=== PATIENT | male | born 1935 | race Caucasian/White ===

== ENCOUNTER 2018-12-12 05:13 | Observation (INO) | payer MEDICARE ==
[2018-12-12] MEDS ORDERED: methylPREDNISolone Sod Succ/PF 125 MG/2 ML VIAL ONE (05:19)
[2018-12-12 05:44] LABS: #Basophils 0.1 thou/uL (0.0-0.2); #Eosinphils 0.2 thou/uL (0.0-0.7); #Lymphocytes 1.5 thou/uL (1.20-3.40); #Monocytes 0.5 thou/uL (0.11-0.59); #Neutrophils 4.5 thou/uL (1.40-6.50); %Basophils 1.5 % (0.0-1.0); %Eosinophils 2.9 % (0.0-10.0); %Lymphocytes 22.2 % (21.0-51.0); %Monocytes 6.7 % (0.0-10.0); %Neutrophils 66.7 % (42.0-75.0); Mean Corpuscular HGB CONC 30.4 g/dL (32.0-36.0); Mean Corpuscular Hemoglobin 24.8 pg (27.0-31.0); Mean Corpuscular Volume 81.7 fL (78.0-98.0); Mean Platelet Volume 9.2 fL (7.4-10.4); Platelet Count 179 thou/uL (130-400); Red Blood Cell (RBC) Count 3.24 mill/uL (4.70-6.10); White Blood Cell (WBC) Count 6.8 thou/uL (4.8-10.8)
[2018-12-12 06:03] LABS: ALT (SGPT) 25 U/L (8-55); AST (SGOT) 23 U/L (5-34); Albumin 3.5 g/dL (3.4-4.8); Alkaline Phosphatase 67 U/L (40-150); Anion Gap 11 mmol/L (10-20); BUN (Urea Nitrogen) 28 mg/dL (8.4-25.7); Bilirubin, Total 0.4 mg/dL (0.2-1.2); CK (CPK) 32 U/L (30-200); Calc. Creatinine Clearance 0 mL/min (70-130); Calcium 8.6 mg/dL (7.8-10.44); Carbon Dioxide 23 mmol/L (23-31); Chloride 107 mmol/L (98-107); Estimated GFR-MDRD 36; Globulin 2.6 g/dL (2.4-3.5); Glucose 113 mg/dL (83-110); Potassium 4.2 mmol/L (3.5-5.1); Protein, Total 6.1 g/dL (5.8-8.1); Sodium 137 mmol/L (136-145)
[2018-12-12] MEDS ORDERED: Aspirin 325 MG TAB ONE (06:47)
[2018-12-12] MEDS ORDERED: Furosemide 40 MG/4 ML VIAL ONE (06:47)
[2018-12-12] MEDS ORDERED: Acetaminophen 500 MG TAB ONE (07:29)
[2018-12-12] MEDS ORDERED: Morphine 4 MG/ML VIAL ONE (07:51)
[2018-12-12] MEDS ORDERED: Ondansetron PF 4 MG/2 ML Vial ONE (07:52)
--- NOTE | 2018-12-12 08:17 | RAD ---
PORTABLE CHEST: HISTORY: Chest pain. COMPARISON: There are no recent comparison studies. Previous chest film dates to 2009. FINDINGS: There is patchy atelectasis or infiltrate in the left lung base with the suggestion of a small left e ffusion blunting the left CP angle. There is linear atelectasis in the right lower lung. The upper lung [place] appear clear. Vascular markings are upper normal. Heart size is upper normal. There ar e postop sternotomy changes. IMPRESSION: 1. Atelectasis and/or infiltrate in the left lung base and question small left effusion. 2. Linear atelectasis in the right lower lung. POS: [facility]
[2018-12-12 09:49] LABS: Troponin I 0.012 ng/mL (< 0.028)
[2018-12-12] MEDS ORDERED: Acetaminophen 325 MG TAB PO PRN (10:22)
[2018-12-12] MEDS ORDERED: Senokot S 8.6-50 MG TAB PO PRN (10:22)
[2018-12-12 12:46] LABS: Troponin I Less than 0.010 ng/mL (< 0.028)
--- NOTE | 2018-12-12 13:36 | HP ---
PRIMARY CARE PHYSICIAN: Dr. Tavares. HIGHWAY ADMINISTRATIVE ENGINEER: Dr. Field. CHIEF COMPLAINT: Chest pain. HISTORY OF PRESENT ILLNESS: Mr. Clarke is an 83-year-old male, who reported to the emergency room early this morning, complains of shortness of breath and chest pain, onset 30 minutes prior to arrival. He reports that he has COPD, took his normal inhalers without any relief. At that point, he said his chest started to hurt. He wears a nitroglycerin patch every day, had a bypass surgery vessel 40 years ago and had stent placement 2 years ago. He reports that Dr. Field saw him about 3 weeks ago, did a stress test, which he reported was normal. EKG in the emergency room showed a normal sinus rhythm, beats per minute 50, complete right bundle-branch block, left anterior fascicular block, bifascicular block, T-waves are normal, axis is normal, has a wide QRS. Chest x-ray shows atelectasis, infiltrate in the left lung base, questionable small left effusion, two linear atelectasis in the right lower lung. Lab values; creatinine is 1.79, BUN is 28, estimated GFR is 36. We do not have a baseline creatinine to compare this to, and BNP is 1260.9. Again, do not have any previous labs to compare this to. Troponin x2 undetectable. The patient admitted to the observation unit for further management. PAST MEDICAL HISTORY: Pertinent for coronary artery disease, hyperlipidemia, hypertension, COPD. PAST SURGICAL HISTORY: CABG vessels 40 years ago, had a portion of his stomach removed due to ulcers and has had a hemorrhoidectomy. PSYCHIATRIC HISTORY: None. SOCIAL HISTORY: Denies alcohol or drug use. The patient smoked for 50 years and quit 2 years ago. FAMILY HISTORY: There is some coronary artery disease in his family. ALLERGIES: NONE. CURRENT MEDICATIONS: Per the ER, still needs to be rectified, reconciled on the inpatient unit once he arrives. Metoprolol 50 mg p.o. once a day, tramadol 50 mg q.6 hours as needed for pain, Xarelto 10 mg once a day, Atorvastatin 10 mg p.o. once a day, Flomax 0.4 mg p.o. once a day, and Prilosec 20 mg p.o. once a day. REVIEW OF SYSTEMS: The patient reports chest pain, cough, shortness of breath. Denies fever or chills. PHYSICAL EXAMINATION: VITAL SIGNS: Blood pressure 163/68, pulse is 51, respirations are 16, temperature 98.0, pulse ox is 96% on room air. GENERAL: The patient is alert and oriented to person, place, and time, is in no distress. HEENT: Head is atraumatic and normocephalic. Eyes, pupils are equally round and reactive to light. Extraocular muscles are intact. ENT, mouth exam is normal. Mucous membranes are moist. NECK: Normal range of motion. Trachea is midline. RESPIRATORY/CHEST: Coarse breath sounds, diffusely diminished air movement. There is no sign of any respiratory distress. CARDIOVASCULAR: Regular heart rate and rhythm. Heart sounds are normal. ABDOMEN: Soft, nontender. Bowel sounds are heard. BACK: Normal range of motion. No CVA tenderness. EXTREMITIES: Upper extremities, normal strength, normal range of motion. Radial pulses equal bilaterally. Lower extremities, normal range of motion. Motor strength is normal. Pedal pulses equal bilaterally. There is pitting edema noted to bilateral extremities. NEUROLOGIC: The patient is oriented to person, place, and time. Speech is normal. No focal motor or sensory deficits are noted. SKIN: Warm, dry, normal in color. ASSESSMENT AND PLAN: 1. The patient has had a recent stress test within the last 3 weeks. We will ask for records from Dr. Field's office to help us risk stratify. The patient reports he has not had an echocardiogram within the last year, we will get this done. We will trend troponins. Aspirin. 2. History of chronic obstructive pulmonary disease. We will order nebs q.6 hours as scheduled. 3. Hypertension. We will restart home medications. We will trend. 4. Coronary artery disease. We will continue home medications. 5. Deep venous thrombosis and gastrointestinal prophylaxis have been started. Job ID: [id number]
[2018-12-12] MEDS ORDERED: HYDROcodone/Acetaminophen 5/325 mg Tablet PO PRN (13:53)
[2018-12-12 15:00] VITALS: BMI 28.6
[2018-12-12] MEDS: Heparin 5,000 UNITS/ML VIAL SC SCH ×2 (15:26→21:12)
[2018-12-12] MEDS: HYDROcodone/Acetaminophen 5/325 mg Tablet PO PRN ×2 (15:26→21:07)
[2018-12-12] MEDS ORDERED: traMADol HCl 50 MG TAB PO PRN (15:33)
[2018-12-12] MEDS ORDERED: hydrALAZINE 20 MG/ML VIAL SLOW IVP PRN (16:35)
[2018-12-12] MEDS: PROVENTIL INHALER 6.7 G (200 INHALATIONS) INH SCH (17:51)
[2018-12-12] MEDS: Famotidine 20 MG TAB PO SCH (21:06)
[2018-12-12] MEDS: Amiodarone 200 MG TAB PO SCH (21:06)
[2018-12-12] MEDS: Metoprolol Tartrate 100 MG TAB PO SCH (21:07)
[2018-12-13] MEDS: HYDROcodone/Acetaminophen 5/325 mg Tablet PO PRN (02:15)
[2018-12-13] MEDS: Nitroglycerin 0.4mg/Hour PATCH TD SCH (05:28)
[2018-12-13 05:51] LABS: #Lymphocytes 0.7 thou/uL (1.20-3.40); #Monocytes 0.4 thou/uL (0.11-0.59); #Neutrophils 6.7 thou/uL (1.40-6.50); %Lymphocytes 9.3 % (21.0-51.0); %Monocytes 5.2 % (0.0-10.0); %Neutrophils 85.4 % (42.0-75.0); Hemoglobin 8.7 g/dL (14.0-18.0); Mean Corpuscular HGB CONC 31.1 g/dL (32.0-36.0); Mean Corpuscular Hemoglobin 25.5 pg (27.0-31.0); Mean Corpuscular Volume 82.1 fL (78.0-98.0); Mean Platelet Volume 9.4 fL (7.4-10.4); Platelet Count 169 thou/uL (130-400); RBC Distribution Width 15.7 % (11.5-14.5); White Blood Cell (WBC) Count 7.9 thou/uL (4.8-10.8)
[2018-12-13 06:12] LABS: ALT (SGPT) 23 U/L (8-55); AST (SGOT) 22 U/L (5-34); Albumin 3.6 g/dL (3.4-4.8); Alkaline Phosphatase 72 U/L (40-150); Anion Gap 12 mmol/L (10-20); BUN (Urea Nitrogen) 36 mg/dL (8.4-25.7); Bilirubin, Total 0.4 mg/dL (0.2-1.2); Calc. Creatinine Clearance 44 mL/min (70-130); Calcium 8.8 mg/dL (7.8-10.44); Carbon Dioxide 25 mmol/L (23-31); Chloride 104 mmol/L (98-107); Estimated GFR-MDRD 44; Globulin 2.7 g/dL (2.4-3.5); Glucose 140 mg/dL (83-110); Potassium 4.5 mmol/L (3.5-5.1); Protein, Total 6.3 g/dL (5.8-8.1); Sodium 136 mmol/L (136-145)
[2018-12-13] MEDS: PROVENTIL INHALER 6.7 G (200 INHALATIONS) INH SCH ×2 (07:15→19:06)
[2018-12-13] MEDS: Amiodarone 200 MG TAB PO SCH ×2 (08:16→22:32)
[2018-12-13] MEDS: Atorvastatin Calcium 20 MG TAB PO SCH (08:16)
[2018-12-13] MEDS: Losartan 25 MG TAB PO SCH (08:17)
[2018-12-13] MEDS: Tamsulosin HCl 0.4 MG CAP PO SCH (08:17)
[2018-12-13] MEDS: Metoprolol Tartrate 100 MG TAB PO SCH ×2 (08:17→22:32)
[2018-12-13] MEDS: Famotidine 20 MG TAB PO SCH ×2 (08:17→22:33)
[2018-12-13] MEDS: Heparin 5,000 UNITS/ML VIAL SC SCH ×3 (08:18→22:33)
[2018-12-13] MEDS: Allopurinol 100 MG TAB PO SCH (08:18)
--- NOTE | 2018-12-13 08:30 | RAD ---
CHEST ONE VIEW: Comparison: 12-12-18 History: Shortness of breath. Follow up changes in the lung bases. FINDINGS: Stable sternotomy wires, vascular rings and atherosclerosis of the aorta. Heart size is within normal limits. Pulmonary vessels and hilum are normal. Blunting of the left costophrenic angle, unchanged. Linear opacity in the left lung base may represent subsegmental atelectasis or scar. Chronic changes in the remainder of the lung parenchyma. No pneumothorax or osseous abnormalities. IMPRESSION: Presumed chronic changes in the left lung base. Superimposed subsegmental atelectasis cannot be exclu ded. POS: [facility]
--- NOTE | 2018-12-13 08:47 | ULT ---
RIGHT UPPER QUADRANT ULTRASOUND: INDICATION: Abdominal pain. COMPARISON: None. FINDINGS: Bowel gas slightly limited evaluation of the upper abdomen. The pancreas is largely obscured. There is a 1 cm cyst seen within the right hepatic lobe. No additional focal hepatic lesion is evide nt. There is a small echogenic focus seen within the region of the gallbladder neck suspicious for a smal l stone. There is report of a sonographic Hernandez's sign. The gallbladder wall is mildly thickened m easuring 3.6 mm; however, the gallbladder is not fully distended. The common bile duct measures 4.4 mm. The right kidney measures 9.5 cm. There is a 1.5 cm cyst seen within the left mid kidney. An a dditional 1.5 cm cyst was seen within the right mid kidney. No hydronephrosis is evident. IMPRESSION: 1. Small suspected nonmobile gallstone within the gallbladder neck with gallbladder wall thickening and reported sonographic Hernandez's sign is suspicious for acute calculus cholecystitis. Recommend cor relation with the clinical examination. A HIDA scan may be helpful for further evaluation. 2. Right hepatic lobe and right renal cyst. 3. Some limitation of the examination due to overlying bowel gas. POS: [facility]
[2018-12-13] MEDS ORDERED: Lorazepam 2 MG/ML VIAL SLOW IVP SCH (11:15)
--- NOTE | 2018-12-13 12:05 | PDOC.HOSPP ---
- Subjective Encounter Date: 12/13/18 Encounter Time: 09:15 Subjective: Patient examined, denied new complaints. - Objective Vital Signs & Weight: Vital Signs (12 hours) Temp Pulse Resp BP BP Pulse Ox 12/13/18 07:53 97.5 F L 54 L 12 139/65 94 L 12/13/18 07:13 59 L 16 94 L 12/13/18 05:24 57 L 162/72 H 98 12/13/18 02:57 97.6 F 58 L 17 145/67 H 95 12/13/18 02:20 58 L 189/74 H 12/13/18 00:31 62 160/73 H Weight Weight 83.007 kg I&O: 12/12/18 12/13/18 12/14/18 06:59 06:59 06:59 Intake Total 600 Balance 600 Result Diagrams: 12/13/18 05:35 12/13/18 05:35 ROS - Review of Systems Respiratory: reports: pleuritic pain Cardiovascular: reports: chest pain, edema - Medication Medications: Active Medications Generic Name Dose Route Start Last Admin Trade Name Freq PRN Reason Stop Dose Admin Hydrocodone Bitart/Acetaminophen 2 tab 12/12/18 13:53 12/13/18 02:15 [place] 5/325 PO 2 tab Q4H PRN Administration Severe Pain (7-10) Albuterol Sulfate 1 puff 12/12/18 21:00 12/13/18 07:15 Proventil Hfa INH Not Given BID LOLA Albuterol/Ipratropium 3 ml 12/12/18 19:00 12/13/18 07:13 Duoneb NEB 3 ml [id number] LOLA Administration Allopurinol 100 mg 12/13/18 09:00 12/13/18 08:18 Zyloprim PO Not Given DAILY LOLA Amiodarone HCl 200 mg 12/12/18 21:00 12/13/18 08:16 Cordarone PO 200 mg BID LOLA Administration Atorvastatin Calcium 20 mg 12/13/18 09:00 12/13/18 08:16 Lipitor PO 20 mg DAILY LOLA Administration Famotidine 20 mg 12/12/18 21:00 12/13/18 08:17 Pepcid PO 20 mg BID LOLA Administration Heparin Sodium (Porcine) 5,000 units 12/12/18 15:00 12/13/18 08:18 Heparin SC Not Given TID LOLA Hydralazine HCl 10 mg 12/12/18 16:35 12/13/18 02:20 Apresoline SLOW IVP 10 mg Q4H PRN Administration SBP > 180 and HR < 70 Lorazepam 1 mg 12/13/18 11:15 12/13/18 11:24 Ativan SLOW IVP 12/13/18 13:00 1 mg NOW LOLA Administration Losartan Potassium 25 mg 12/13/18 09:00 12/13/18 08:17 Cozaar PO 25 mg DAILY LOLA Administration Metoprolol Tartrate 100 mg 12/12/18 21:00 12/13/18 08:17 Lopressor PO 100 mg BID LOLA Administration Nitroglycerin 0.4 patch 12/13/18 09:00 12/13/18 05:28 Nitro-Dur 0.4mg/Hr Patch TD 0.4 patch DAILY LOLA Administration Pantoprazole Sodium 40 mg 12/13/18 09:00 12/13/18 08:17 Protonix PO 40 mg DAILY LOLA Administration Sodium Chloride 10 ml 12/12/18 10:22 12/13/18 11:24 Flush - Normal Saline IVF 10 ml PRN PRN Administration Saline Flush Tamsulosin HCl 0.4 mg 12/13/18 09:00 12/13/18 08:17 Flomax PO 0.4 mg DAILY LOLA Administration - Exam Eye: PERRL ENT: moist mucosa Neck: supple Heart: RRR Respiratory: CTAB Gastrointestinal: soft Gastrointestinal - other findings: mild pain TP RUQ Extremities: 2+ LE edema Skin: normal turgor Neurological: CN's grossly intact Musculoskeletal: normal tone Psychiatric: normal affect, A&O x 3 Hosp A/P (1) Creatinine elevation Code(s): R79.89 - OTHER SPECIFIED ABNORMAL FINDINGS OF BLOOD CHEMISTRY Status : Acute (2) Kidney disease Code(s): N28.9 - DISORDER OF KIDNEY AND URETER, UNSPECIFIED Status: Acute (3) Edema Code(s): R60.9 - EDEMA, UNSPECIFIED Status: Acute (4) Chest pain Code(s): R07.9 - CHEST PAIN, UNSPECIFIED Status: Acute (5) Shortness of breath Code(s): R06.02 - SHORTNESS OF BREATH Status: Acute (6) COPD (chronic obstructive pulmonary disease) Status: Chronic (7) CAD (coronary artery disease) Code(s): I25.10 - ATHSCL HEART DISEASE OF [place] CORONARY ARTERY W/O ANG PCTRS Status: Chronic - Plan old records reviewed/req Patient with abnormal RUQ U/S with positive Hernandez's sign Radiology recommended HIDA scan which is ordered Creatinine improved today Nebs and lasix ordered Awaiting Echo and records from Dr. Field's office Recheck labs in AM Will discuss with Dr. Rodgers for further recommendations
[2018-12-13] MEDS ORDERED: Furosemide 40 MG/4 ML VIAL SLOW IVP SCH (12:30)
--- NOTE | 2018-12-13 14:35 | NM ---
Exam: Negative medicine HIDA scan HISTORY: Right upper quadrant pain. Positive Hernandez's sign. TECHNIQUE: Patient was administered 5.1 degrees of technetium 99m mebrofenin intravenously. Ejection fraction was determined the patient was given the relative short orally FINDINGS: Appropriate uptake of the radiotracer by the hepatic parenchyma. Localization radiotracer into the in trahepatic biliary system. Passage of radiotracer from the common bile duct into small bowel loops. Localization of the radiotracer in the gallbladder as early as 6 minutes. Gallbladder ejection fraction: 77% IMPRESSION: 1. No scintigraphic evidence of acute cholecystitis. 2. 77% ejection fraction
[2018-12-14 04:46] LABS: #Lymphocytes 1.3 thou/uL (1.20-3.40); #Monocytes 0.6 thou/uL (0.11-0.59); #Neutrophils 6.7 thou/uL (1.40-6.50); %Basophils 0.2 % (0.0-1.0); %Eosinophils 0.6 % (0.0-10.0); %Monocytes 6.7 % (0.0-10.0); %Neutrophils 77.5 % (42.0-75.0); Hemoglobin 8.4 g/dL (14.0-18.0); Mean Corpuscular HGB CONC 31.1 g/dL (32.0-36.0); Mean Corpuscular Hemoglobin 25.6 pg (27.0-31.0); Mean Corpuscular Volume 82.2 fL (78.0-98.0); Mean Platelet Volume 9.1 fL (7.4-10.4); Platelet Count 180 thou/uL (130-400); Red Blood Cell (RBC) Count 3.28 mill/uL (4.70-6.10); White Blood Cell (WBC) Count 8.7 thou/uL (4.8-10.8)
[2018-12-14 05:07] LABS: ALT (SGPT) 22 U/L (8-55); AST (SGOT) 22 U/L (5-34); Albumin 3.5 g/dL (3.4-4.8); Alkaline Phosphatase 64 U/L (40-150); Anion Gap 12 mmol/L (10-20); BUN (Urea Nitrogen) 45 mg/dL (8.4-25.7); Bilirubin, Total 0.4 mg/dL (0.2-1.2); Calc. Creatinine Clearance 42 mL/min (70-130); Calcium 8.7 mg/dL (7.8-10.44); Carbon Dioxide 27 mmol/L (23-31); Chloride 102 mmol/L (98-107); Estimated GFR-MDRD 43; Globulin 2.5 g/dL (2.4-3.5); Glucose 102 mg/dL (83-110); Potassium 4.1 mmol/L (3.5-5.1); Sodium 137 mmol/L (136-145)
[2018-12-14] MEDS: PROVENTIL INHALER 6.7 G (200 INHALATIONS) INH SCH (07:24)
[2018-12-14] MEDS: Heparin 5,000 UNITS/ML VIAL SC SCH (08:14)
[2018-12-14] MEDS: Nitroglycerin 0.4mg/Hour PATCH TD SCH (08:15)
[2018-12-14] MEDS: Allopurinol 100 MG TAB PO SCH (08:16)
[2018-12-14] MEDS: Amiodarone 200 MG TAB PO SCH (08:16)
[2018-12-14] MEDS: Atorvastatin Calcium 20 MG TAB PO SCH (08:16)
[2018-12-14] MEDS: Metoprolol Tartrate 100 MG TAB PO SCH (08:17)
[2018-12-14] MEDS: Tamsulosin HCl 0.4 MG CAP PO SCH (08:17)
[2018-12-14] MEDS: Losartan 25 MG TAB PO SCH (08:17)
[2018-12-14] MEDS: Famotidine 20 MG TAB PO SCH (08:17)
[2018-12-14] MEDS ORDERED: Furosemide 40 MG/4 ML VIAL SLOW IVP SCH (09:00)
[2018-12-14 11:45] VITALS: BP 128/54; TEMP 97.9
--- NOTE | 2018-12-18 22:38 | EKG ---
Test Reason : STAT Blood Pressure : / mmHG Vent. Rate : 056 BPM Atrial Rate : 056 BPM P-R Int : 000 ms QRS Dur : 142 ms QT Int : 498 ms P-R-T Axes : 000 -58 -16 degrees QTc Int : 480 ms Sinus bradycardia with 1st degree A-V block Right bundle branch block Left anterior fascicular block Bifascicular block Abnormal ECG When compared with ECG of 12-DEC-2018 05:24, (Unconfirmed) Sinus rhythm has replaced Wide QRS rhythm Confirmed by Lizy DE LA ROSA ([id number]) on 12/18/2018 10:37:56 PM Referred By: MODESTA Confirmed By:Lizy DE LA ROSA
== END 2018-12-14 12:48 | disposition home or self-care (01) ==
LOC: ERS 05:13 → ERHOLD 10:22 → 2SW 12-14 11:52
PROVIDERS: ADMIT Internal Medicine; ATTEND Internal Medicine
DX: R07.9 Chest pain, unspecified (principal); R06.02 Shortness of breath; J44.9 Chronic obstructive pulmonary disease, unspecified; J98.11 Atelectasis; I10 Essential (primary) hypertension; E78.5 Hyperlipidemia, unspecified; I45.2 Bifascicular block; I25.10 Atherosclerotic heart disease of native coronary artery without angina pectoris; N28.1 Cyst of kidney, acquired; K76.89 Other specified diseases of liver; Z79.01 Long term (current) use of anticoagulants; Z79.899 Other long term (current) drug therapy; Z87.891 Personal history of nicotine dependence; Z95.1 Presence of aortocoronary bypass graft
CPT/HCPCS: 71045 ×2; 76705; 78227; 80053 ×3; 82550; 83690; 83880; 84484 ×2; 85025 ×3; 93005 ×2; 93306; 94640 ×4; 96374; 96375 ×2; 96376 ×2; 97116; 97139; 99285; A9537; G0378 ×4; 36415; 93010; J0360; J1644; J1940; J2060; J2270; J2405; J2930; J7620

== ENCOUNTER 2019-03-19 17:37 | Inpatient (IN) | payer MEDICARE ==
[2019-03-19] MEDS ORDERED: Adacel (T-DAP) 0.5 ML SYRINGE ONE (18:52)
[2019-03-19] MEDS ORDERED: Morphine 4 MG/ML VIAL ONE (18:52)
[2019-03-19] MEDS ORDERED: Ondansetron PF 4 MG/2 ML Vial ONE (19:00)
--- NOTE | 2019-03-19 19:53 | RAD ---
Radiograph right leg tibia-fibula 2 views: DATE: 03/19/2019 7:11 PM HISTORY: 83-year-old male status post acute traumatic injury to the leg. COMPARISON: None FINDINGS: Comminuted mildly displaced fracture of proximal fibular diaphysis with butterfly fragment. Spiral fracture at junction between middle and distal thirds of the tibial diaphysis, with three four th shaft width lateral displacement and one third shaft width posterior displacement, of distal fragment, and minimal posterior angulation of distal fragment. ORIF plate and screws from distal fibular diaphysis to tip of lateral malleolus. Multiple surgical cl ips at medial calf. IMPRESSION: 1. Acute, traumatic, displaced spiral fracture of the distal tibial shaft. 2. Acute, traumatic, mildly displaced, comminuted fracture of proximal fibular shaft. 3. Old open reduction internal fixation of lateral malleolus nonacute fracture.
--- NOTE | 2019-03-19 19:53 | RAD ---
EXAM: Chest one view: HISTORY: Injury from a fall COMPARISON: 12/13/2018 FINDINGS: Postop midline sternotomy. Stable chronic appearing changes. Heart size: Within normal limits. Lungs: Clear of acute process. No evidence for confluent pneumonia, pleural effusion, acute edema, or pneumothorax, or other signifi cant acute process. IMPRESSION: No significant acute intrathoracic disease. Atherosclerosis of the aorta. Stable exam.
--- NOTE | 2019-03-19 19:55 | RAD ---
Radiograph right knee 2 views: DATE: 03/19/2019 HISTORY: 83-year-old male with traumatic knee pain due to fall FINDINGS: Comminuted and mildly displaced fibular shaft fracture. No fracture identified involving tibial plate au or distal femur. Very small joint effusion. No dislocation. IMPRESSION: 1. Acute, traumatic, mildly displaced comminuted fibular shaft fracture. 2. No dislocation, and no fracture of the knee joint identified, in this limited [id number] study. .
[2019-03-19 19:56] LABS: #Eosinphils 0.2 thou/uL (0.0-0.7); #Lymphocytes 1.8 thou/uL (1.20-3.40); #Monocytes 0.9 thou/uL (0.11-0.59); #Neutrophils 8.9 thou/uL (1.40-6.50); %Basophils 0.3 % (0.0-1.0); %Eosinophils 1.3 % (0.0-10.0); %Lymphocytes 15.2 % (21.0-51.0); %Monocytes 7.7 % (0.0-10.0); %Neutrophils 75.5 % (42.0-75.0); Hemoglobin 9.9 g/dL (14.0-18.0); Mean Corpuscular HGB CONC 30.8 g/dL (32.0-36.0); Mean Corpuscular Hemoglobin 24.3 pg (27.0-31.0); Mean Corpuscular Volume 78.8 fL (78.0-98.0); Mean Platelet Volume 8.3 fL (7.4-10.4); Platelet Count 232 thou/uL (130-400); RBC Distribution Width 17.6 % (11.5-14.5); Red Blood Cell (RBC) Count 4.08 mill/uL (4.70-6.10); White Blood Cell (WBC) Count 11.8 thou/uL (4.8-10.8)
[2019-03-19 20:02] LABS: Prothrombin Time 13.6 SEC (12.0-14.7)
[2019-03-19] MEDS ORDERED: Fentanyl 100 MCG/2 ML VIAL ONE ×2 (20:11→21:49)
[2019-03-19 20:26] LABS: ALT (SGPT) 69 U/L (8-55); AST (SGOT) 56 U/L (5-34); Albumin 3.6 g/dL (3.4-4.8); Alkaline Phosphatase 92 U/L (40-110); Anion Gap 12 mmol/L (10-20); BUN (Urea Nitrogen) 42 mg/dL (8.4-25.7); Bilirubin, Total 0.4 mg/dL (0.2-1.2); Calc. Creatinine Clearance 0 mL/min (70-130); Calcium 8.9 mg/dL (7.8-10.44); Carbon Dioxide 25 mmol/L (23-31); Chloride 105 mmol/L (98-107); Estimated GFR-MDRD 33; Globulin 3.1 g/dL (2.4-3.5); Glucose 134 mg/dL (83-110); Potassium 4.4 mmol/L (3.5-5.1); Protein, Total 6.7 g/dL (5.8-8.1); Sodium 138 mmol/L (136-145)
--- NOTE | 2019-03-19 20:43 | CT ---
CT BRAIN NONCONTRAST: DATE: 03/19/2019 HISTORY: 83-year-old male status post acute head trauma from fall FINDINGS: There is no evidence of acute intra-axial or extra-axial hemorrhage. There is no midline shift or any other mass effect. There is no extra-axial fluid collection. There is no evidence of obstructive hydrocephalus. Calvarium is intact. There is diffuse brain parenchymal volume loss. There are low att enuation areas in the white matter. These are nonspecific, but in a patient of this age, they are probably chronic ischemic white matter changes due to microvascular atherosclerosis. IMPRESSION: 1) No acute intracranial findings. 2) involutional changes and chronic ischemic white matter changes.
--- NOTE | 2019-03-19 20:47 | CT ---
CT CERVICAL SPINE NONCONTRAST: DATE: 03/19/2019 HISTORY: 83-year-old male status post acute cervical trauma from fall. FINDINGS: There are no jumped or perched facets. There is no evidence of acute fracture. The vertebral body hei ghts are maintained. There is no prevertebral soft tissue swelling. IMPRESSION: No evidence of acute fracture or acute traumatic subluxation.
[2019-03-19] MEDS ORDERED: Ondansetron ODT 4 MG TAB PO PRN (21:37)
[2019-03-19] MEDS ORDERED: Dextrose 5% in Water 1,000 ML IV PRN (21:37)
[2019-03-19] MEDS ORDERED: hydrALAZINE 20 MG/ML VIAL SLOW IVP PRN (21:37)
[2019-03-19] MEDS ORDERED: Dextrose 50% Abboject 50 ML SYRINGE SLOW IVP PRN (21:37)
[2019-03-19] MEDS ORDERED: traMADol HCl 50 MG TAB PO PRN (21:42)
[2019-03-19] MEDS ORDERED: Nitroglycerin 2% Ointment 1 INCH/1 GM Packet ONE (21:49)
[2019-03-19] MEDS ORDERED: HYDROmorphone 0.5 MG/0.5 ML SYRINGE ONE (22:48)
[2019-03-20 00:35] VITALS: BMI 28.7
[2019-03-20] MEDS: Morphine 2 MG/ML SYRINGE SLOW IVP PRN ×7 (00:45→21:05)
[2019-03-20] MEDS: Acetaminophen 1,000 MG in Premix Bag 1 BAG IVPB SCH ×3 (00:46→14:36)
[2019-03-20] MEDS: Sodium Chloride 0.9% 1,000 ML IV SCH ×2 (00:46→14:36)
[2019-03-20 04:56] LABS: #Basophils 0.1 thou/uL (0.0-0.2); #Eosinphils 0.3 thou/uL (0.0-0.7); #Monocytes 1.1 thou/uL (0.11-0.59); #Neutrophils 7.3 thou/uL (1.40-6.50); %Lymphocytes 18.6 % (21.0-51.0); %Neutrophils 67.4 % (42.0-75.0); Hemoglobin 9.4 g/dL (14.0-18.0); Mean Corpuscular HGB CONC 30.6 g/dL (32.0-36.0); Mean Corpuscular Hemoglobin 24.3 pg (27.0-31.0); Mean Corpuscular Volume 79.3 fL (78.0-98.0); Mean Platelet Volume 8.5 fL (7.4-10.4); Platelet Count 221 thou/uL (130-400); RBC Distribution Width 17.8 % (11.5-14.5); Red Blood Cell (RBC) Count 3.88 mill/uL (4.70-6.10); White Blood Cell (WBC) Count 10.8 thou/uL (4.8-10.8)
[2019-03-20 05:24] LABS: Anion Gap 16 mmol/L (10-20); BUN (Urea Nitrogen) 38 mg/dL (8.4-25.7); Calc. Creatinine Clearance 40 mL/min (70-130); Calcium 8.7 mg/dL (7.8-10.44); Carbon Dioxide 20 mmol/L (23-31); Chloride 107 mmol/L (98-107); Estimated GFR-MDRD 40; Glucose 116 mg/dL (83-110); Potassium 4.6 mmol/L (3.5-5.1); Sodium 138 mmol/L (136-145)
[2019-03-20] MEDS: CEFAZOLIN 2 GM in Premix Bag 1 BAG IVPB SCH ×4 (06:29→21:08)
--- NOTE | 2019-03-20 07:09 | HP ---
PRIMARY CARE PHYSICIAN,: Dr. Tavares. CONSULTS: Orthopedic Surgery, Dr. Rob. REQUESTING ER PHYSICIAN: Dr. Chaidez. CHIEF COMPLAINT: Dizziness, status post fall with right lower extremity pain. HISTORY OF PRESENT ILLNESS: This is an 83-year-old gentleman who was evaluated in the emergency room this evening status post ground level fall. The patient reports that he was reaching up high above his refrigerator when he became dizzy, causing him to fall. The patient denies hitting his head and denies loss of consciousness. The patient has full memory of the event. He was unable to ambulate after the fall. The patient typically uses a cane for ambulation. The patient reported immediate right lower extremity pain. The patient was evaluated in the emergency room and found to have an open right comminuted and mildly displaced fibula shaft fracture and a distal tibia shaft fracture. The patient was given a tetanus injection and Ancef 2 g in the emergency room. The patient also complained of some left-sided chest pain. A full cardiac workup was obtained. The patient was given 0.5 inch of nitroglycerin paste and morphine, fentanyl, and Dilaudid for pain control of his right lower extremity. REVIEW OF SYSTEMS: A 10-point review of systems is negative unless otherwise indicated in the above HPI. PAST MEDICAL HISTORY: Coronary artery disease, hyperlipidemia, hypertension, chronic obstructive pulmonary disease. PAST SURGICAL HISTORY: CABG approximately 40 years ago, 5-vessel, had a portion of his stomach removed due to ulcers and also had a hemorrhoidectomy. SOCIAL HISTORY: The patient lives [facility] a [facility] apartment, [facility], previous smoker, smoked for 50 years and quit approximately 2 years ago, denies any alcohol or drug use. ALLERGIES: DENIES ANY KNOWN DRUG ALLERGIES. MEDICATIONS: Symbicort, albuterol inhaler, allopurinol 100 mg p.o. daily, amiodarone 200 mg p.o. b.i.d., Lipitor 20 mg p.o. daily, losartan 20 mg p.o. daily, Lopressor 100 mg p.o. b.i.d., nitroglycerin 0.4 mg topical daily, Prilosec 20 mg p.o. daily, Flomax 0.4 mg p.o. daily, tramadol as needed, aspirin 81 mg b.i.d. PHYSICAL EXAMINATION: VITAL SIGNS: Blood pressure 151/59, pulse 72, respirations 19, and SpO2 of 95% on room air, temperature 98.2. GENERAL: The patient is awake, alert, oriented to person, place, time, and event, elderly gentleman, in no acute distress. HEENT: Head is atraumatic and normocephalic. The patient does have a chronic hard area to the left scalp approximately 2 cm x 3 cm. Pupils are equal and reactive, extraocular muscles are intact, moist mucous membranes. NECK: Normal range of motion. Trachea midline. No tenderness to the cervical spine. RESPIRATORY: Equal chest rise and fall, bilateral breath sounds clear, no wheezing, rales, or rhonchi. CARDIOVASCULAR: Regular rate, regular rhythm, no murmurs. ABDOMEN: Soft, nontender, nondistended. BACK: Normal range of motion. No tenderness to spine. EXTREMITIES: Distal pulses intact in all extremities. Motor strength normal in all extremities, sensation intact. Right lower extremity puncture wound that is bandaged with no active bleeding. Pain to right lower extremity. NEUROLOGIC: Cranial nerves intact, patient oriented to person, place, time, and event. GCS 15. DIAGNOSTICS: 1. Tibia-fibula x-ray, right acute traumatic displaced spiral fracture of the distal tibia shaft, mildly displaced comminuted fracture of the proximal fibular shaft, old open reduction and internal fixation of the lateral malleolus nonacute fracture. 2. Right knee x-ray, impression, mildly displaced comminuted fibular shaft fracture. No fracture of the knee joint identified. 3. Brain CT, impression, no acute intracranial findings, involutional changes and chronic ischemic white matter changes. 4. Cervical spine CT, no evidence of acute fracture or acute traumatic subluxation. 5. Chest x-ray, impression, no significant acute intrathoracic disease. Atherosclerosis of the aorta. 6. 12-lead EKG, sinus rhythm with left axis deviation. Right bundle branch block, rate 66, no change from previous 12-lead EKG. LABORATORY DATA: WBC 11.8, RBC 4.08, hemoglobin 9.9, hematocrit 32.2, platelets 232. PT 13.6, INR 1.0. Sodium 138, potassium 4.4, chloride 105, carbon dioxide 25, anion gap 12, BUN 42, creatinine 1.94, estimated GFR 33, glucose 134. AST 56, ALT 69, troponin I at 0.019, repeat 3 hours later less than 0.010. Urinalysis is pending. ASSESSMENT: 1. Ground level fall. 2. Dizziness, near syncopal episode. 3. Right comminuted displaced fibular shaft fracture, open, distal tibia shaft fracture. 4. Acute traumatic pain. 5. Chronic kidney disease stage 3. 6. History of coronary artery disease, hypertension, chronic obstructive pulmonary disease, and hyperlipidemia. PLAN: We will admit the patient to the telemetry floor. The patient will be n.p.o. for plans with Orthopedic Surgery to go to the OR for repair of his right lower extremity fracture. We will continue Ancef q.8 hours. We will do syncopal workup. The patient will be admitted to the telemetry floor for continuous cardiac monitoring. The patient will be placed on a pain regimen. We will place a PT/OT consult to evaluate and treat postop. We will place the patient on mechanical DVT prophylaxis. The plan was discussed with the patient who agrees. The plan will be discussed with the attending after this dictation. Job ID: [id number]
[2019-03-20] MEDS: PROVENTIL INHALER 6.7 G (200 INHALATIONS) INH SCH ×2 (07:29→19:25)
[2019-03-20] MEDS: Mometasone/Formoterol 120 PUFF INHALER INH SCH ×2 (07:32→19:23)
--- NOTE | 2019-03-20 07:51 | CON ---
DATE OF CONSULTATION: REQUESTING PHYSICIAN: Dr. Monroy. BRIEF HISTORY OF PRESENT ILLNESS: The patient is an 83-year-old gentleman who is examined in the emergency room. He reports that earlier today, he became dizzy and fell while attempting to retrieve a pie from the top of his refrigerator. There was no loss of consciousness, but he did become dizzy, fell and sustained trauma to the right lower leg. He was unable to ambulate and upon arrival at [place], was found to have deformity of the right lower extremity as well as a very small puncture hole at the distal medial aspect of the mcleod. X-rays were obtained that confirmed a short spiral fracture of the distal third tibia as well as a proximal fibular shaft fracture. Orthopedic consultation requested and patient was admitted to the Trauma Service. PAST MEDICAL HISTORY: Remarkable for an extensive cardiac history with coronary artery disease, also history of hyperlipidemia, hypertension, and COPD by report. The patient is not able to give a detailed past medical history. PAST SURGICAL HISTORY: Remarkable for coronary artery bypass graft, history of subsequent stent placement somewhere between 3 and 5 years ago, and also surgery for ulcers, which he describes as a partial gastrectomy. The patient also status post right ankle fracture with plate stabilization of the distal fibula. MEDICATIONS: In doing a chart review, medications in the past include allopurinol, Cordarone, atorvastatin, furosemide, losartan, metoprolol, nitroglycerin patch daily, and omeprazole. It is unclear how many of these drugs he is actively taking. He reports he was also on a blood thinner in the past, but is only taking a baby aspirin at this time. ALLERGIES: NO KNOWN DRUG ALLERGIES. FAMILY HISTORY: Noncontributory. SOCIAL HISTORY: He is a former tobacco user, however, he reports that he quit within this past year. He denies alcohol consumption or drug use. REVIEW OF SYSTEMS: No recent fevers, chills, or sweats. He does report chronic shortness of breath and occasional chest pain. He denies numbness or tingling in the lower extremities at this time. PHYSICAL EXAMINATION: VITAL SIGNS: He is found to have a temperature of 98.2, heart rate of 69, respiratory rate of 14, and a blood pressure of 147/54. HEENT: Atraumatic and normocephalic. HEART: Shows a regular rate and rhythm with a 2/6 systolic ejection murmur. RESPIRATORY: Shows somewhat faint breath sounds bilaterally. I do not appreciate wheezing. Chest wall is nontender. PELVIS: Stable. EXTREMITIES: Bilateral upper extremities remarkable for scattered bruising, but no obvious bony deformity or pain with manipulation of shoulder, elbow, wrist, or hand. The lower extremity remarkable for a left lower extremity without deformity and no complaints of pain. A right lower extremity with swelling and mild external rotation at the tibia distally. He was found to have a very small puncture wound at the distal medial aspect of the tibia with no foreign body and no visible bone. He was found to have a 2+ dorsalis pedis pulse. He has good capillary refill. He is wiggling his toes. There is no pain with passive stretch. LABORATORY DATA: He was found to have a white count of 11.8, a hematocrit of 32.2, and 232,000 platelets. His INR is 1.0. His chemistry panel was remarkable for a BUN of 42 and a creatinine of 1.94. His AST and ALT are 56 and 69 respectively. He was found to have an albumin of 3.6 with a total protein of 6.7. Four view x-ray of the right knee remarkable for a proximal fibular shaft fracture and some mild age-appropriate degenerative changes within the knee. Two-view x-ray of right tibia shows a distal third short spiral fracture of the tibial shaft with displacement. There is also a retained plate at the distal fibula from his prior surgery. ASSESSMENT: An 83-year-old gentleman with grade 1 open distal tibial shaft fracture with extensive cardiac history. PLAN: At this time, the patient is being admitted to the Trauma Service. He was recently admitted to the hospital for some chest pain and this record is now being reviewed to ensure that the patient is optimized for surgical intervention. At this time, the patient has already received his first dose of IV antibiotics and a sterile dressing has been applied to the leg. As such, we will continue antibiotics and allow time for appropriate cardiac clearance and then proceed with intramedullary nail stabilization. This evening, I discussed with the patient risks and benefits of the procedure. Risks include, but are not limited to bleeding, infection, nerve injury, DVT, PE, loss of limb or life. The patient appears to understand and does wish to proceed. Informed consent will be obtained prior to surgery. Job ID: [id number]
--- NOTE | 2019-03-20 08:24 | ULT ---
BILATERAL CAROTID DUPLEX ULTRASOUND: HISTORY: Syncope, dizziness TECHNIQUE: Grayscale, color-flow and spectral Doppler ultrasound imaging of the extracranial carotid artery syst ems was performed bilaterally. FINDINGS: Bilateral plaque formation is seen. The peak systolic velocity in the right ICA measures 319 cm/s with an end-diastolic velocity of 30 cm /s and a systolic ratio of 2.74. The peak systolic velocity in the left ICA measures 141 cm/s with an end-diastolic velocity of 17 cm/s and a systolic ratio of 0.98. Flow in both vertebral arteries remains antegrade. IMPRESSION: 1. Severe (greater than 70%) stenosis of the right ICA 2. Moderate (50-69%) stenosis of the left ICA
[2019-03-20] MEDS: Polyethylene Glycol 3350 17 GM Packet PO SCH (08:59)
[2019-03-20] MEDS: Senokot S 8.6-50 MG TAB PO SCH ×2 (09:00→21:06)
[2019-03-20] MEDS ORDERED: Famotidine 20 MG TAB PO SCH ×2 (09:00)
[2019-03-20] MEDS ORDERED: Fentanyl 100 MCG/2 ML VIAL ONE ×3 (09:48→12:53)
[2019-03-20] MEDS ORDERED: Midazolam HCl 2 mg/2 ml Vial ONE (10:14)
[2019-03-20] MEDS ORDERED: ePHEDrine/0.9% NaCl/PF SYRINGE 50 mg/10 ml ONE (10:49)
[2019-03-20] MEDS ORDERED: Ondansetron PF 4 MG/2 ML Vial ONE (10:49)
[2019-03-20] MEDS ORDERED: Esmolol 100 MG/10 ML VIAL ONE (10:49)
[2019-03-20] MEDS ORDERED: PHENYLEPHRINE-NS 100 MCG/ML 10 ML SYRINGE ONE (10:49)
[2019-03-20] MEDS ORDERED: Rocuronium Bromide 10 MG/ML (10ML VIAL) ONE (10:49)
[2019-03-20] MEDS ORDERED: Ropivacaine 0.5% HCl/PF (150 MG/30 ML VIAL) ONE (10:49)
[2019-03-20] MEDS ORDERED: Lidocaine 1% PF 5 ML VIAL ONE (10:49)
[2019-03-20] MEDS ORDERED: PROPOFOL 200 MG/20 ML VIAL ONE (10:49)
[2019-03-20] MEDS ORDERED: EPINEPHrine 1 mg/ml MDV (1ml Charge) ONE (10:49)
[2019-03-20] MEDS ORDERED: SUGAMMADEX SODIUM 200 MG/2 ML VIAL ONE (11:09)
--- NOTE | 2019-03-20 11:33 | PRG ---
DATE OF SERVICE: 03/20/2019 SUBJECTIVE: Mr. Clarke is an 83-year-old man with history of significant coronary artery disease, status post myocardial infarction at the age 40. The patient fell from a ground level position yesterday following a near syncopal episode. He sustained grade 1 open spiral fracture of the right tibia and fibula. He is awake and alert this morning, reporting adequate pain control. He reports having had 2 episodes of chest pain during this hospitalization. He additionally reports worsening fatigue and dyspnea with exertion over the last 2 to 3 months. Chest pain in this hospitalization has been at rest, which he describes as sharp, but not as a tightness or pressure to his chest without any radiation. He denies any nausea or vomiting. OBJECTIVE: VITAL SIGNS: His vital signs this morning include blood pressure 135/56, pulse 62, respiratory rate is 18, temperature 97.4 degrees Fahrenheit, oxygen saturation 99% on 2 L by nasal cannula oxygen. HEENT: Reveals pupils are equal, round, reactive to light and accommodation. NECK: He has no jugular venous distention noted. HEART: Reveals regular rate and rhythm. No murmurs or gallops auscultated. LUNGS: Clear to auscultation bilaterally. Breathing, regular and nonlabored. ABDOMEN: Soft, nontender, and nondistended. EXTREMITIES: Reveal 2+ radial and pedal pulses bilaterally. The right lower extremity is immobilized in RJ splint. NEUROLOGIC: Reveals no focal deficits present. LABORATORY FINDINGS: Include a CBC with 10,800 white blood cells, hemoglobin and hematocrit 9.4 and 30.8 respectively. Platelet count is 221,000. Metabolic profile; sodium 138, potassium is 4.6, chloride is 107, bicarb is 20, BUN is 38, creatinine is 1.66, and glucose is 116. Carotid Doppler, which was obtained this morning, reveals severe stenosis of the right internal carotid artery greater than 70%. Also noted is moderate 50% to 69% stenosis of the left internal carotid artery. I did review the transthoracic echocardiogram, which was obtained on December 13, 2018, which is remarkable for ejection fraction of 40% to 45%, with inferior wall hypokinesis. IMPRESSION: 1. Postinjury day #1, status post ground level fall. 2. Grade 1 open spiral fracture of the right tibia and fibula. 3. Status post near syncopal episode. 4. Bilateral internal carotid arterial stenosis. 5. History of severe coronary arterial disease. PLAN: 1. We will ask Cardiology to evaluate the patient with regard to what I suspect is worsening chronic cardiomyopathy. 2. In the interim, we will repeat transthoracic echocardiogram, which could be compared to that of December 13, 2018. 3. We will ask CV Surgery to evaluate the patient for recommendations regarding the bilateral carotid arterial stenosis and determine if there is any surgical indication for this. 4. Once the patient has been seen by Cardiology and risk stratified, the patient will undergo operative intervention to the grade 1 open right tibial and fibular fractures by Orthopedic Surgery. 5. Above findings and plan discussed with the patient who indicates understanding information given. 6. Postoperatively, the patient will be seen and treated by Physical and Occupational Therapy. 7. Anticipate transfer to inpatient rehabilitation following this hospitalization. 8. The patient indicates understanding information given. 9. I have answered his questions. Job ID: [id number]
[2019-03-20] MEDS ORDERED: Temazepam 15 MG CAP PO PRN (13:18)
[2019-03-20] MEDS ORDERED: Non-Formulary Medication 1 EACH PO PRN (14:06)
[2019-03-20] MEDS ORDERED: Ondansetron HCl/PF 4 MG/2 ML Vial IVP PRN (14:06)
[2019-03-20] MEDS ORDERED: Promethazine HCl 25 MG/ML VIAL IM/IV PRN (14:06)
--- NOTE | 2019-03-20 14:41 | OP ---
DATE OF PROCEDURE: 03/20/2019 PREOPERATIVE DIAGNOSIS: Grade 1 open right tibia-fibula fracture. POSTOPERATIVE DIAGNOSIS: Grade 1 open right tibia-fibula fracture. PROCEDURES PERFORMED: 1. Intramedullary nail stabilization of right tibia. 2. Irrigation and debridement of right open tibia. ANESTHESIA: General. IP LITIGATION PARALEGAL: George Hidalgo PA-C. ESTIMATED BLOOD LOSS: 50 mL. TOURNIQUET TIME: Zero. IMPLANTS: Synthes EX nail, measuring 10 x 330 mm with 3 cross-lock screws. COMPLICATIONS: None. DRAINS: None. SPECIMENS: None. OUTCOME: Near-anatomic alignment. INDICATIONS: The patient is an 83-year-old gentleman, status post ground-level fall, sustaining a grade 1 open right tibia fracture with a proximal fibular neck and shaft fracture. After discussion with the patient including risks and benefits, we decided to proceed with intramedullary nail stabilization. The patient does have an extensive cardiac history and was hospitalized in November, at which time he was found to have an ejection fraction of approximately 30%. This dilemma does not appear to be easily correctable, and after a thorough discussion with the patient including his intraoperative risks given his heart disease, we have decided to proceed with intramedullary nail stabilization. Informed consent obtained. DESCRIPTION OF PROCEDURE: The patient was brought to the operating room and a time-out performed followed by induction of general anesthesia. It should be noted that an adductor block was performed preoperatively. Next, the patient was positioned supine on the OR table and a sterile prep and drape was performed of the right lower extremity. Next, the traumatic wound was irrigated with Pulsavac. There was found to be no foreign debris and the bone was not visible. Once this was performed, a midline anterior knee incision was made after skin was sharply incised. Dissection was carried down to the underlying paratenon. This was incised in line with skin incision, reflected medially and laterally. A medial parapatellar tendon approach to the proximal tibia was then performed. A threaded guidewire was passed from the anterior portion of the tibia into the intramedullary canal. This was checked under AP and lateral C-arm imaging. A reamer was then passed over this guidewire. Next, a ball-tipped guidewire was then passed down the shaft of the tibia across the fracture and in the distal tibial metaphysis. Once appropriately positioned, reaming was started at 8.5 mm and continued up to 11 mm. The 11 mm did give chatter at the isthmus. Next, a 10 x 330 mm nail was passed over the ball-tipped guidewire under C-arm guidance. Once appropriately positioned, the ball-tipped guidewire was removed and then 2 small stab wounds were created distally along the medial aspect of the tibia and a freehand technique was used to place 2 distal cross-lock screws. Once these were positioned, the fracture was again inspected under C-arm guidance, shown to be near anatomically aligned and a single proximal cross-lock screw was placed. At the completion of this, the wounds again irrigated with bulb syringe and then closed in layers with the anterior knee incision closed with 0 Vicryl followed by 2-0 Vicryl and then a nylon. Nylon also used for the cross-lock screw sites. Xeroform gauze, Webril, and fiberglass splint were then applied to the leg and then the patient was transferred to recovery room in stable condition. There were no complications. He tolerated the procedure well. Job ID: [id number]
[2019-03-20 16:21] LABS: Bilirubin Negative (Negative); Blood, Urine Negative (Negative); Clarity Clear (Clear); Glucose, Urine (Dipstick) Normal (Negative); Leukocyte 500 Leu/uL (Negative); Mucous/LPF Rare LPF (<2+); Nitrite Negative (Negative); Protein, Urine (Dipstick) Negative (Neg-Trace); RBC/HPF 0-3 HPF (0-3); Urobilinogen Normal mg/dL (Less than 2)
[2019-03-20 16:31] LABS: Bacteria/HPF None Seen HPF (None Seen)
--- NOTE | 2019-03-20 16:53 | RAD ---
Intraoperative imaging of the right tibia/fibula: 03/20/2019 COMPARISON: 03/19/2019 HISTORY: Open reduction and internal fixation FINDINGS: Prior imaging demonstrated obliquely oriented fractures of proximal right fibular shaft and distal right tibial shaft. The tibial fracture has been treated with a intramedullary ayo with one proximal interlocking screw and 2 distal interlocking screws. There is an obliquely oriented nondispl aced proximal fibular shaft fracture. IMPRESSION: Intraoperative imaging as above.
--- NOTE | 2019-03-20 17:07 | CON ---
DATE OF CONSULTATION: REASON FOR CONSULTATION: Preoperative clearance and chest pain. HISTORY OF PRESENT ILLNESS: Mr. Clarke is an 83-year-old gentleman, who has not been seen or evaluated by Cardiology in the past. He recently states he became dizzy and fell. No syncope or presyncope present. He had an open tib-fib fracture. From a CV standpoint, he does state he has had chest pain. The pain is intermittent. It has been noted for 6 months. This is not felt to be associated with exertion. No other ameliorating, exacerbating, or precipitating factors present. His troponin was negative. EKG did not suggest any acute changes. PAST MEDICAL HISTORY: Hyperlipidemia; hypertension; COPD; and CAD, status post bypass. SOCIAL HISTORY: Recently quit all tobacco products. ALLERGIES: NONE. HOME MEDICATIONS: Include: 1. Symbicort. 2. Amiodarone. 3. Lipitor. 4. Nitroglycerin. 5. Losartan. 6. Tramadol. 7. Prilosec. 8. Lopressor. PRIMARY CLASSIFICATION AND TREATMENT DIRECTOR: Dr. Julius Field. REVIEW OF SYSTEMS: A 10-point review of systems is reviewed and as above. Otherwise, negative. PHYSICAL EXAMINATION: GENERAL: The patient is a pleasant gentleman, who is in no acute distress. The patient does appear older than stated age. VITAL SIGNS: Blood pressure 135/56, pulse 62, temperature 97.4. NEUROLOGIC: The patient is alert and oriented x3 with no focal neurologic deficits. HEENT: Sclerae without icterus. Mouth has moist mucous membranes with normal pallor. NECK: No JVD. Carotid upstroke brisk. No bruits bilaterally. LUNGS: Clear to auscultation with unlabored respirations. BACK: No scoliosis or kyphosis. CARDIAC: Regular rate and rhythm with normal S1 and S2. No S3 or S4 noted. No significant rubs, murmurs, thrills, or gallops noted throughout the precordium. PMI is not displaced. There is no parasternal heave. ABDOMEN: Soft, nontender, nondistended. No peritoneal signs present. No hepatosplenomegaly. No abnormal striae. EXTREMITIES: 2+ femoral and 2+ dorsalis pedis pulses. No cyanosis, clubbing, or edema. SKIN: No gross abnormalities. PERTINENT LABORATORY DATA: Hemoglobin 9.4. Creatinine 1.94, GFR 33. IMPRESSION: 1. Preoperative clearance. 2. Coronary artery disease. 3. Status post bypass surgery. 4. Atypical chest pain. RECOMMENDATIONS: At this point, Mr. Clarke appears stable. He has undergone his surgery. This was felt to be needed urgently and not felt to be elective. He is doing well in the postoperative period. From my standpoint, we would continue outpatient medications. We would decrease amiodarone to 100 mg p.o. b.i.d. Continue aspirin in addition to atorvastatin and metoprolol. We will recommend echo, and we will review. Job ID: [id number]
[2019-03-20] MEDS: Acetaminophen 500 MG TAB PO SCH ×2 (18:16→23:19)
[2019-03-20] MEDS ORDERED: FLU VACC TS2019-20(65YR UP)/PF 180 MCG/0.5 ML SYRINGE IM ONE (21:00)
[2019-03-20] MEDS ORDERED: Amiodarone 200 MG TAB PO SCH (21:00)
[2019-03-20] MEDS: Metoprolol Tartrate 100 MG TAB PO SCH (21:06)
[2019-03-20] MEDS: Atorvastatin Calcium 20 MG TAB PO SCH (21:07)
[2019-03-20] MEDS: Amiodarone 200 MG TAB PO SCH (21:07)
[2019-03-20] MEDS ORDERED: Tamsulosin HCl 0.4 MG CAP PO SCH (21:30)
--- NOTE | 2019-03-20 22:21 | CON ---
DATE OF CONSULTATION: HISTORY OF PRESENT ILLNESS: An 83-year-old gentleman who performed a multi-vessel coronary artery bypass grafting in 1992. He was admitted this hospital stay after a fall at [place], where he lives with his brother resulting in a right tibial and fibular fracture. He underwent surgical repair of it today. He is not a very good historian, but does admit to history of hypertension, dyslipidemia, and COPD. He has also had a past surgical history of 50 years ago, portion of the stomach removed for ulcers. SOCIAL HISTORY: He smoked until about 2 years ago. 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 HOME MEDICATIONS: Include; 1. Inhaler. 2. Allopurinol. 3. Amiodarone. 4. Lipitor. 5. Losartan. 6. Lopressor. The patient was also on Flomax. He states he has not been taking his aspirin due to his history of ulcer disease in the remote past. He evidently did see Dr. Field this year, where he had an echo done showing an ejection fraction of 45% with regional wall motion abnormality and then a stress test showing a fixed defect inferior laterally with an ejection fraction of 37%. REVIEW OF SYSTEMS: The patient has mild constipation. He has nocturia x2. He denies claudication, but is not very active because his legs become shaky. He has no nocturnal rest pain in his feet. He does have some dyspnea with minimal exertion and occasionally wheezes. He denies any recent chest pain. PHYSICAL EXAMINATION: GENERAL: He is an elderly gentleman appearing his stated age, bearded. NECK: He has no carotid bruits. CHEST: He has a healed sternotomy with stable sternum. No murmurs. HEART: Regular rate and rhythm. ABDOMEN: Soft and nontender. EXTREMITIES: He has a dressing on his right leg. He has no pedal or popliteal pulses. Carotid ultrasound demonstrated peak velocities of about 310 cm/second consistent with a greater than 70% stenosis. ICA/CCA ratio was less than 3. EKG shows right bundle branch block with old inferior infarction. ASSESSMENT AND PLAN: At this time, the patient has no symptoms to suggest a transient ischemic attack or stroke. He denies any prior history of transient ischemic attack or stroke. I have encouraged him to begin taking his baby aspirin a day and I will follow him up in the office in regard to his right carotid stenosis. Job ID: [id number]
--- NOTE | 2019-03-21 01:42 | PRG ---
DATE OF SERVICE: 03/20/2019 SUBJECTIVE: The patient remains on the telemetry floor. The patient is postop intramedullary nail stabilization of the right tibia, and irrigation and debridement of the right open tibia. The patient is currently awake, alert, sitting up in the hospital bed. The patient has not participated with Physical Therapy since return from the OR. The patient reports eating and drinking fairly well. The patient's pain is controlled at this time. The patient voices no complaints or concerns. The patient has had no events on the monitoring tech. The patient remained in sinus rhythm with a first-degree AV block and a right bundle branch block. OBJECTIVE: The patient's vital signs are stable. The patient has been afebrile. PLAN: We will continue pain regimen. We will have Physical and Occupational Therapy work with the patient tomorrow. The patient is pending placement to inpatient rehab. Job ID: [id number]
[2019-03-21] MEDS: traMADol HCl 50 MG TAB PO PRN ×2 (01:44→11:00)
[2019-03-21 04:02] LABS: #Eosinphils 0.2 thou/uL (0.0-0.7); #Lymphocytes 0.9 thou/uL (1.20-3.40); #Neutrophils 7.7 thou/uL (1.40-6.50); %Basophils 0.3 % (0.0-1.0); %Eosinophils 2.3 % (0.0-10.0); %Lymphocytes 8.7 % (21.0-51.0); %Neutrophils 78.7 % (42.0-75.0); Hemoglobin 7.5 g/dL (14.0-18.0); Mean Corpuscular Hemoglobin 23.8 pg (27.0-31.0); Mean Corpuscular Volume 79.1 fL (78.0-98.0); Mean Platelet Volume 8.6 fL (7.4-10.4); Platelet Count 169 thou/uL (130-400); RBC Distribution Width 17.6 % (11.5-14.5); Red Blood Cell (RBC) Count 3.16 mill/uL (4.70-6.10); White Blood Cell (WBC) Count 9.8 thou/uL (4.8-10.8)
[2019-03-21 04:17] LABS: Anion Gap 8 mmol/L (10-20); BUN (Urea Nitrogen) 32 mg/dL (8.4-25.7); Calc. Creatinine Clearance 42 mL/min (70-130); Calcium 8.3 mg/dL (7.8-10.44); Carbon Dioxide 26 mmol/L (23-31); Chloride 109 mmol/L (98-107); Estimated GFR-MDRD 42; Glucose 138 mg/dL (83-110); Magnesium 2.6 mg/dL (1.6-2.6); Phosphorus 3.5 mg/dL (2.3-4.7); Potassium 4.9 mmol/L (3.5-5.1); Sodium 138 mmol/L (136-145)
[2019-03-21] MEDS: CEFAZOLIN 2 GM in Premix Bag 1 BAG IVPB SCH ×4 (04:58→21:10)
[2019-03-21] MEDS: Acetaminophen 500 MG TAB PO SCH ×4 (05:41→23:52)
[2019-03-21] MEDS ORDERED: PHOS-NAK 1 PKT PACK PO SCH (07:15)
[2019-03-21] MEDS: PROVENTIL INHALER 6.7 G (200 INHALATIONS) INH SCH ×2 (07:30→19:09)
[2019-03-21] MEDS: Mometasone/Formoterol 120 PUFF INHALER INH SCH ×2 (07:31→19:10)
[2019-03-21] MEDS: Allopurinol 100 MG TAB PO SCH (08:49)
[2019-03-21] MEDS: Losartan 25 MG TAB PO SCH (08:49)
[2019-03-21] MEDS: Amiodarone 200 MG TAB PO SCH (08:49)
[2019-03-21] MEDS: Aspirin 81 mg Enteric Coated Tablet PO SCH ×2 (08:49→21:09)
[2019-03-21] MEDS: Tamsulosin HCl 0.4 MG CAP PO SCH (08:50)
[2019-03-21] MEDS: Metoprolol Tartrate 100 MG TAB PO SCH (08:50)
[2019-03-21] MEDS: Ferrous Sulfate 325 MG TAB PO SCH ×2 (08:50→18:10)
[2019-03-21] MEDS: Senokot S 8.6-50 MG TAB PO SCH ×2 (08:51→20:59)
[2019-03-21] MEDS: Ascorbic Acid 500 mg Chewable Tablet PO SCH ×2 (08:51→18:09)
[2019-03-21] MEDS: Nitroglycerin 0.4mg/Hour PATCH TD SCH (08:53)
[2019-03-21] MEDS ORDERED: FLU VACC TS2019-20(65YR UP)/PF 180 MCG/0.5 ML SYRINGE IM ONE (09:00)
--- NOTE | 2019-03-21 09:33 | PRG ---
DATE OF SERVICE: 03/21/2019 SUBJECTIVE: Mr. Clarke is doing well. No current complaints. After further interrogation of his chest pain, he states the chest pain has been noted over the last several months. He underwent a noninvasive stress study at Dr. Julius Field's office yesterday and was found to be "okay." I do not have the stress test for review. He states there is a chest pain he has suffered in the past, again is unchanged, and related to his COPD. OBJECTIVE: VITAL SIGNS: Blood pressure 143/59, pulse 77, and temperature 96.9. LUNGS: Rhonchi and rales bilaterally. HEART: Regular rate and rhythm. ABDOMEN: Soft, nontender, and nondistended. EXTREMITIES: No edema. LABORATORY DATA: Hemoglobin 7.5. Creatinine 1.57. IMPRESSION: 1. Coronary artery disease. 2. Status post bypass surgery. 3. Tib-fib fracture, status post repair. 4. Tobacco abuse. RECOMMENDATIONS: 1. Review echo. 2. Continue amiodarone 200 mg p.o. q.a.m. 3. Continue aspirin, atorvastatin, losartan, and metoprolol. Otherwise, from my standpoint, I have no further recommendations. His CK and troponin were initially negative and we will continue with close monitoring on telemetry. Job ID: [id number]
[2019-03-21] MEDS: Polyethylene Glycol 3350 17 GM Packet PO SCH (10:18)
[2019-03-21] MEDS ORDERED: Sodium Chloride 0.9% 250 ML IVPB ONE (19:45)
--- NOTE | 2019-03-21 20:26 | PRG ---
DATE OF SERVICE: 03/21/2019 SUBJECTIVE: The patient was seen this morning sitting up in bed with no signs of acute distress. He reported his pain was well controlled and he felt he got good sleep overnight. He stated that he was able to have his breakfast this morning with no issues. OBJECTIVE: VITAL SIGNS: Temperature 96.9, pulse 77, respirations 18, oxygen saturation 100% on 2 L nasal cannula, and blood pressure 143/59. GENERAL: Well-appearing elderly male, lying in bed with no signs of acute distress. PULMONARY: Equal chest rise and fall. Clear breath sounds bilaterally. No signs of acute respiratory distress. CARDIAC: Regular rate and rhythm. No murmurs, gallops, or rubs. GI: Abdomen is soft, nontender, and nondistended. EXTREMITIES: 2+ pulses in all extremities. Gross motor and sensation are intact. Right lower extremity with splint that is clean, dry, and intact. NEURO: GCS is 15. LABORATORY FINDING: White count 9.8, hemoglobin 7.5, hematocrit 25.0, and platelets 169. Sodium 138, potassium 4.9, chloride 109, bicarb 26, BUN 32, creatinine 1.59, glucose 138, phos 3.5, and magnesium 2.6. DIAGNOSTIC FINDINGS: There are no new diagnostic findings to report. ASSESSMENT: 1. Status post ground level fall due to dizziness. 2. Right open tib-fib fracture, status post repair. 3. Acute blood loss anemia, worsening. 4. Bilateral internal carotid artery stenosis. 5. History of coronary artery disease, 5-vessel coronary artery bypass grafting, cardiac stents, hypertension, hyperlipidemia, and chronic kidney disease- creatinine currently is at baseline. PLAN: Continue current diet and pain medication. We will replace the patient's phosphorus today. Per the recommendations of Dr. Harrington, we will change his amiodarone to 200 mg daily. Continue other home medications for now. Yesterday , we did consult Dr. Serna for the patient's significant stenosis of the carotid arteries. We are still awaiting for his recommendations. The patient is also still pending an echo, we will follow that up. The patient will need placement in acute rehab facility. The patient was seen and examined by Dr. Diaz and myself this morning during rounds. Job ID: [id number] [facility]
[2019-03-21] MEDS: NITROGLYCERIN PATCH REMOVAL FS SCH (21:09)
[2019-03-21] MEDS: Atorvastatin Calcium 20 MG TAB PO SCH (21:10)
--- NOTE | 2019-03-22 01:09 | PRG ---
DATE OF SERVICE: SUBJECTIVE: The patient was seen this evening on the telemetry floor. Patient is awake and alert, in no distress. Patient reports diminished appetite and the patient's nurse states that he has not been taking in very many liquids today. Patient was not able to participate with physical therapy earlier today and states that he was having too much pain. Patient currently denies any pain at this time. Patient's blood pressure has been on the relatively low side this evening. Patient's urinary output is adequate. OBJECTIVE: VITAL SIGNS: Blood pressure 80/50, heart rate 60, temperature 97.4, and SpO2 is 96% on room air. RESPIRATORY: Equal chest rise and fall, no respiratory distress, bilateral breath sounds clear with no wheezing, rales, or rhonchi. EXTREMITIES: Positive distal pulses 2+ in all extremities, splint clean, dry, and intact to right lower extremity. PLAN: Continue supportive care. We will encourage incentive spirometer use. We will give patient a 250 mL normal saline bolus over 2 hours as he has been hypotensive and not taken in very many fluids. We will continue to monitor patient's hemoglobin and hematocrit. We will have patient work with physical and occupational therapy tomorrow. We will hold patient's p.m. blood pressure medications. Patient is pending placement to inpatient rehab. Job ID: [id number]
[2019-03-22 04:50] LABS: #Eosinphils 0.3 thou/uL (0.0-0.7); #Lymphocytes 1.1 thou/uL (1.20-3.40); #Monocytes 0.8 thou/uL (0.11-0.59); #Neutrophils 6.3 thou/uL (1.40-6.50); %Basophils 0.5 % (0.0-1.0); %Eosinophils 3.7 % (0.0-10.0); %Lymphocytes 12.9 % (21.0-51.0); %Monocytes 9.3 % (0.0-10.0); %Neutrophils 73.7 % (42.0-75.0); Hemoglobin 7.4 g/dL (14.0-18.0); Mean Corpuscular HGB CONC 29.9 g/dL (32.0-36.0); Mean Corpuscular Hemoglobin 24.1 pg (27.0-31.0); Mean Corpuscular Volume 80.6 fL (78.0-98.0); Mean Platelet Volume 9.5 fL (7.4-10.4); Platelet Count 150 thou/uL (130-400); RBC Distribution Width 17.7 % (11.5-14.5); Red Blood Cell (RBC) Count 3.06 mill/uL (4.70-6.10); White Blood Cell (WBC) Count 8.6 thou/uL (4.8-10.8)
[2019-03-22 05:05] LABS: Anion Gap 11 mmol/L (10-20); BUN (Urea Nitrogen) 41 mg/dL (8.4-25.7); Calc. Creatinine Clearance 32 mL/min (70-130); Calcium 8.3 mg/dL (7.8-10.44); Carbon Dioxide 24 mmol/L (23-31); Chloride 107 mmol/L (98-107); Estimated GFR-MDRD 30; Glucose 112 mg/dL (83-110); Magnesium 2.3 mg/dL (1.6-2.6); Potassium 4.5 mmol/L (3.5-5.1); Sodium 137 mmol/L (136-145)
[2019-03-22] MEDS: Acetaminophen 500 MG TAB PO SCH ×2 (05:37→11:41)
[2019-03-22] MEDS: CEFAZOLIN 2 GM in Premix Bag 1 BAG IVPB SCH (05:37)
--- NOTE | 2019-03-22 07:56 | PRG ---
DATE OF SERVICE: 03/22/2019 HISTORY OF PRESENT ILLNESS: Mr. Clarke is doing well. He states he had little sleep per much interruption last night. No specific issues of chest pain, pressure, shortness of breath. He states he has not been up in a chair. PHYSICAL EXAMINATION: VITAL SIGNS: BP 122/56, pulse 57, respirations 20. LUNGS: Clear to auscultation. HEART: Regular rate and rhythm. ABDOMEN: Soft, nontender, nondistended. EXTREMITIES: No edema. PERTINENT LABORATORY DATA: Hemoglobin 7.4, white blood cell count 8.6. Creatinine 2.0 up from 1.5. IMPRESSION: 1. Atypical chest pain. 2. Tib-fib fracture, status post repair. 3. Coronary artery disease. 4. Status post bypass surgery. 5. Anemia. 6. Chronic kidney disease. RECOMMENDATIONS: 1. We will give IV fluids. 2. Continue to monitor hemoglobin. 3. The patient with severe carotid stenosis and will be followed as an outpatient by Dr. Garrett Mirza. 4. Rehab. ADDENDUM: The patient did undergo a noninvasive stress study several months ago at [facility]. He did have a fixed defect in the inferior and lateral wall with LVEF 37%. This corresponds to an LVEF of 40-45% by echo. Job ID: [id number]
[2019-03-22] MEDS: Ascorbic Acid 500 mg Chewable Tablet PO SCH ×2 (08:08→17:07)
[2019-03-22] MEDS: Aspirin 81 mg Enteric Coated Tablet PO SCH ×2 (08:08→20:51)
[2019-03-22] MEDS: Allopurinol 100 MG TAB PO SCH (08:08)
[2019-03-22] MEDS: Tamsulosin HCl 0.4 MG CAP PO SCH (08:09)
[2019-03-22] MEDS: Amiodarone 200 MG TAB PO SCH (08:09)
[2019-03-22] MEDS: Nitroglycerin 0.4mg/Hour PATCH TD SCH (08:10)
[2019-03-22] MEDS: Senokot S 8.6-50 MG TAB PO SCH ×2 (08:11→20:52)
[2019-03-22] MEDS: Polyethylene Glycol 3350 17 GM Packet PO SCH (08:11)
[2019-03-22] MEDS ORDERED: Sodium Chloride 0.9% 500 ML IV SCH (08:15)
[2019-03-22] MEDS: Ferrous Sulfate 325 MG TAB PO SCH ×2 (08:21→17:07)
[2019-03-22] MEDS: traMADol HCl 50 MG TAB PO PRN (08:21)
[2019-03-22] MEDS: PROVENTIL INHALER 6.7 G (200 INHALATIONS) INH SCH ×2 (08:47→19:42)
[2019-03-22] MEDS: Metoprolol Tartrate 100 MG TAB PO SCH ×2 (08:48→20:52)
[2019-03-22] MEDS: Losartan 25 MG TAB PO SCH (08:49)
[2019-03-22] MEDS: Mometasone/Formoterol 120 PUFF INHALER INH SCH ×2 (08:50→19:42)
[2019-03-22] MEDS ORDERED: traMADol HCl 50 MG TAB PO PRN (08:55)
[2019-03-22] MEDS ORDERED: traMADol HCl 50 MG TAB PO SCH (09:00)
[2019-03-22] MEDS: traMADol HCl 50 MG TAB PO SCH ×2 (09:26→17:17)
[2019-03-22] MEDS ORDERED: ALPRAZolam 0.5 MG TAB PO PRN (12:58)
[2019-03-22] MEDS: ALPRAZolam 0.5 MG TAB PO PRN (13:22)
[2019-03-22] MEDS ORDERED: Acetaminophen/Codeine 30-300mg Tablet PO PRN (15:53)
--- NOTE | 2019-03-22 16:28 | PRG ---
DATE OF SERVICE: 03/22/2019 SUBJECTIVE: The patient was seen this morning lying in bed. He reported that he was having significant pain, but had not received pain medication. He states he had no other acute events overnight. He has a heart-healthy diet and is tolerating that well. Overnight, he did receive 250 mL of IV fluid for hypotension, which resolved. OBJECTIVE: VITAL SIGNS: Temperature 97.9, pulse 57, respirations 12, oxygen saturation 95% on room air, blood pressure 129/60. GENERAL: Well-appearing elderly male, sitting up in bed with no signs of acute distress. PULMONARY: Equal chest rise and fall. Clear breath sounds bilaterally. No signs of acute respiratory distress. CARDIAC: Regular rate and rhythm. No murmurs, gallops, or rubs. GI: Abdomen is soft, nontender, and nondistended. EXTREMITIES: 2+ pulses in all extremities. Gross motor and sensation are intact. No significant swelling in the lower extremities. Splint to right lower extremity is clean, dry, and intact. NEUROLOGIC: GCS is 15. LABORATORY FINDINGS: White count 8.3, hemoglobin 7.4, hematocrit 24.7, platelets 150. Sodium 137, potassium 4.5, chloride 107, bicarb 24, BUN 41, creatinine 2.03, glucose 112, phosphorus 4.0, magnesium 2.3. DIAGNOSTIC FINDINGS: Echocardiogram completed today demonstrates technically difficult study with poor echocardial definition. Ejection fraction is visually estimated at 40% to 45%. Hypokinetic motion of the inferior wall noted on the left ventricle. Mild mitral regurgitation is present. Aortic valve is sclerotic with normal excursion. Mild tricuspid regurgitation. ASSESSMENT: 1. Status post ground level fall due to dizziness. 2. Right open tib-fib fracture, status post repair. 3. Significant right-sided carotid artery stenosis. 4. Acute kidney injury on chronic kidney disease. 5. History of coronary artery disease, 5-vessel coronary artery bypass grafting, stents; hypertension; and chronic obstructive pulmonary disease. PLAN: The patient will receive another 250 mL of normal saline via IV for acute kidney injury. He will continue with his current diet. We will schedule his tramadol, and if he does not have appropriate pain resolution, we will change his medications to Tylenol No. 3. We will contact Dr. Mirza's office again as the patient has still not been seen by cardiovascular surgeon for significant carotid artery stenosis, and it is highly likely that this is what caused the episode leading to the patient's fall. It is likely that he would prefer to just see the patient in the clinic, and so, we will refer him to the clinic. He is pending placement at acute rehab facility at this time. He will likely be ready for discharge tomorrow if his kidney function improves. This patient was seen and examined by Dr. Diaz and myself this morning during rounds. Job ID: [id number]
[2019-03-22] MEDS: Acetaminophen/Codeine 30-300mg Tablet PO PRN ×2 (17:08→23:13)
[2019-03-22] MEDS: Acetaminophen 325 MG TAB PO SCH (17:19)
[2019-03-22] MEDS: NITROGLYCERIN PATCH REMOVAL FS SCH (20:52)
[2019-03-22] MEDS: Atorvastatin Calcium 20 MG TAB PO SCH (20:52)
[2019-03-22] MEDS ORDERED: Gabapentin 300 MG CAP PO SCH (22:45)
[2019-03-22] MEDS ORDERED: Gabapentin 100 MG CAP PO SCH (22:45)
--- NOTE | 2019-03-22 23:30 | PDOC.GSPN ---
Surgery Progress Note: Subj - Subjective Patient reports: still having pain, tolerating a regular diet Narrative: POD # 2. Reports tremors that is causing his increased leg pain. His PCP recommended he see neurology but has not yet. Surgery Progress Note: Obj - Vital signs Vital signs: Vital Signs - Most Recent Temp Pulse Resp BP Pulse Ox 97.7 F 75 18 101/49 L 95 03/22/19 19:35 03/22/19 19:35 03/22/19 19:35 03/22/19 19:35 03/22/19 19:35 - Physical Exam General: no distress, well nourished, moderate pain Cardiovascular: regular rate and rhythm Respiratory: clear to auscultation, normal respiratory effort Wound: dressing clean,dry,intact (RLE, distal pulses 2+) Surgery Progress Note: Results - Labs Result Diagrams: 03/22/19 04:00 03/22/19 04:00 Surgery Progress Note: A/P - Problem (1) Open fracture of tibia and fibula, shaft Current Visit: Yes Code(s): S82.209B - UNSP FX SHAFT OF UNSP TIBIA, INIT FOR OPN FX TYPE I/2; S82.409B - UNSP FX SHAFT OF UNSP FIBULA, INIT FOR OPN FX TYPE I /2 Status: Acute Qualifiers: Open fracture type: open type I or II (2) MALKA (acute kidney injury) Current Visit: Yes Code(s): N17.9 - ACUTE KIDNEY FAILURE, UNSPECIFIED Status : Resolved (3) CAD (coronary artery disease) Current Visit: No Code(s): I25.10 - ATHSCL HEART DISEASE OF [place] CORONARY ARTERY W/O ANG PCTRS Status: Chronic Qualifiers: Coronary Disease-Associated Artery/Lesion type: bypass graft - Plan Plan: Continue supportive care. Will add prn Flexeril and Gabapentin for pain. Increase PT and OT.
[2019-03-23] MEDS: Acetaminophen 325 MG TAB PO SCH ×5 (02:07→23:25)
[2019-03-23 04:32] LABS: #Eosinphils 0.3 thou/uL (0.0-0.7); #Lymphocytes 0.8 thou/uL (1.20-3.40); #Monocytes 0.6 thou/uL (0.11-0.59); #Neutrophils 4.8 thou/uL (1.40-6.50); %Basophils 0.6 % (0.0-1.0); %Eosinophils 5.3 % (0.0-10.0); %Lymphocytes 11.6 % (21.0-51.0); %Monocytes 9.3 % (0.0-10.0); %Neutrophils 73.3 % (42.0-75.0); Hemoglobin 7.1 g/dL (14.0-18.0); Mean Corpuscular HGB CONC 30.5 g/dL (32.0-36.0); Mean Corpuscular Hemoglobin 24.4 pg (27.0-31.0); Mean Platelet Volume 9.4 fL (7.4-10.4); Platelet Count 155 thou/uL (130-400); RBC Distribution Width 18.3 % (11.5-14.5); Red Blood Cell (RBC) Count 2.89 mill/uL (4.70-6.10); White Blood Cell (WBC) Count 6.6 thou/uL (4.8-10.8)
[2019-03-23 05:33] LABS: Anion Gap 12 mmol/L (10-20); BUN (Urea Nitrogen) 42 mg/dL (8.4-25.7); Calc. Creatinine Clearance 35 mL/min (70-130); Calcium 8.2 mg/dL (7.8-10.44); Carbon Dioxide 22 mmol/L (23-31); Chloride 108 mmol/L (98-107); Estimated GFR-MDRD 34; Glucose 113 mg/dL (83-110); Magnesium 2.3 mg/dL (1.6-2.6); Phosphorus 2.9 mg/dL (2.3-4.7); Potassium 4.7 mmol/L (3.5-5.1); Sodium 137 mmol/L (136-145)
[2019-03-23] MEDS ORDERED: PHOS-NAK 1 PKT PACK PO SCH (07:30)
[2019-03-23] MEDS: PROVENTIL INHALER 6.7 G (200 INHALATIONS) INH SCH ×2 (08:10→18:23)
[2019-03-23] MEDS: Mometasone/Formoterol 120 PUFF INHALER INH SCH ×2 (08:10→18:24)
[2019-03-23] MEDS ORDERED: Gabapentin 300 MG CAP PO SCH ×2 (09:00→22:35)
[2019-03-23] MEDS: Metoprolol Tartrate 100 MG TAB PO SCH ×2 (09:28→20:39)
[2019-03-23] MEDS: Senokot S 8.6-50 MG TAB PO SCH ×2 (09:28→20:25)
[2019-03-23] MEDS: Amiodarone 200 MG TAB PO SCH (09:28)
[2019-03-23] MEDS: Aspirin 81 mg Enteric Coated Tablet PO SCH ×2 (09:28→20:25)
[2019-03-23] MEDS: Ascorbic Acid 500 mg Chewable Tablet PO SCH ×2 (09:28→17:04)
[2019-03-23] MEDS: Losartan 25 MG TAB PO SCH (09:28)
[2019-03-23] MEDS: Gabapentin 100 MG CAP PO SCH ×3 (09:29→21:36)
[2019-03-23] MEDS: Ferrous Sulfate 325 MG TAB PO SCH ×2 (09:29→17:05)
[2019-03-23] MEDS: Tamsulosin HCl 0.4 MG CAP PO SCH (09:29)
[2019-03-23] MEDS: Allopurinol 100 MG TAB PO SCH (09:30)
[2019-03-23] MEDS: Nitroglycerin 0.4mg/Hour PATCH TD SCH (09:30)
[2019-03-23] MEDS: Polyethylene Glycol 3350 17 GM Packet PO SCH (09:31)
[2019-03-23] MEDS: Acetaminophen/Codeine 30-300mg Tablet PO PRN (10:12)
[2019-03-23] MEDS: Cyclobenzaprine 10 MG TAB PO PRN (10:13)
--- NOTE | 2019-03-23 11:26 | PRG ---
DATE OF SERVICE: 03/23/2019 SUBJECTIVE: The patient was seen this morning lying in bed with no signs of acute distress. He reported his pain was well controlled. We started the patient on Tylenol 3 yesterday. He did report that he was not able to sleep earlier in the evening, but has been able to sleep this morning. He is tolerating his diet. He has not been able to work well with physical and occupational therapy at this time. He had no acute events overnight. OBJECTIVE: VITAL SIGNS: Temperature 97.9, pulse 72, respirations 18, oxygen saturation 95% on room air, blood pressure 143/65. GENERAL: Well-appearing elderly male, lying in bed with no signs of acute distress. PULMONARY: Equal chest rise and fall. Clear breath sounds bilaterally. No signs of acute respiratory distress. CARDIAC: Regular rate and rhythm. No murmurs, gallops, or rubs. GI: Abdomen is soft, nontender, nondistended. EXTREMITIES: 2+ pulses in all extremities. Gross motor and sensation are intact. No significant swelling noted. Splint to right lower extremity is clean, dry, and intact with no signs of oozing or infection. NEUROLOGIC: GCS is 15. LABORATORY FINDINGS: White count 6.6, hemoglobin 7.1, hematocrit 23.2, platelets 155. Sodium 137, potassium 4.7, chloride 108, bicarb 22, BUN 42, creatinine 1.90, glucose 113, phosphorus 2.9 magnesium 2.3. DIAGNOSTIC FINDINGS: There are no new diagnostic findings to report. ASSESSMENT: 1. Status post ground level fall due to dizziness. 2. Right open tib-fib fracture, status post repair. 3. Acute kidney injury on chronic kidney disease, improving. 4. Newly discovered bilateral carotid artery stenosis. 5. Acute blood loss anemia. 6. History of coronary artery disease, five vessel coronary artery bypass grafting, cardiac stents, hypertension, chronic obstructive pulmonary disease and chronic kidney disease. PLAN: We will continue the patient on his current diet and pain regimen. He will receive 1 unit of packed red blood cells for hemoglobin of 7.1 with a cardiac history. We will increase the aggressiveness of physical therapy. We will transfer him to [place] [facility] as telemetry is no longer needed. We will also replace his phosphorus today. Trauma team will re-evaluate the patient's progress this afternoon. This patient was discussed with Dr. Borges before this dictation. Job ID: [id number]
[2019-03-23] MEDS ORDERED: Acetaminophen/Codeine 30-300mg Tablet PO PRN (14:17)
[2019-03-23] MEDS: Atorvastatin Calcium 20 MG TAB PO SCH (20:25)
[2019-03-23] MEDS: NITROGLYCERIN PATCH REMOVAL FS SCH (20:25)
--- NOTE | 2019-03-23 21:27 | PRG ---
DATE OF SERVICE: 03/23/2019 SUBJECTIVE: This is an 83-year-old male, who is status post ground-level fall resulting in an open right tib-fib fracture. The patient is postop day 3 status post repair. Upon my evaluation this evening, the patient is significantly drowsy and having difficulty participating in the exam. Bedside nurse reports that this has been occurring with post administration of gabapentin throughout the day. There is no focal deficit noted. OBJECTIVE: VITAL SIGNS: Vital signs reviewed and as documented in the electronic medical record. GENERAL: Elderly-appearing male, in no acute distress, resting in bed, drowsy. PULMONARY: Normal work of breathing. Symmetric rise. CARDIOVASCULAR: Regular rate and rhythm. GI: Abdomen is soft, nontender, and nondistended. MUSCULOSKELETAL: Moves all extremities x4. NEUROLOGIC: No focal deficit is noted. ASSESSMENT: 1. Status post ground-level fall due to dizziness. 2. Right open tibia-fibula fracture, postop day 3 status post repair. 3. Acute kidney injury on chronic kidney disease, improving. 4. Bilateral carotid artery stenosis. 5. Acute blood loss anemia. 6. History of coronary artery disease, hypertension, chronic obstructive pulmonary disease, and chronic kidney disease. PLAN: Discontinue gabapentin at this time given the patient's significant dizziness. He may continue his scheduled . We will avoid NSAIDs given MALKA. Follow the patient's H and H and renal function on a.m. labs. If the patient does not improve or develops focal deficit or worsening mental status given his carotid stenosis, we would consider CT scan of the head. Plan of care was discussed with the patient's nurse at bedside and all questions were answered prior to this dictation. Job ID: [id number]
[2019-03-24] MEDS: Acetaminophen/Codeine 30-300mg Tablet PO PRN ×4 (02:17→21:37)
[2019-03-24] MEDS: Cyclobenzaprine 10 MG TAB PO PRN ×2 (03:22→20:28)
[2019-03-24] MEDS: Acetaminophen 325 MG TAB PO SCH ×4 (05:15→23:58)
[2019-03-24 06:51] LABS: #Eosinphils 0.3 thou/uL (0.0-0.7); #Lymphocytes 1.1 thou/uL (1.20-3.40); #Monocytes 0.7 thou/uL (0.11-0.59); #Neutrophils 4.4 thou/uL (1.40-6.50); %Basophils 0.2 % (0.0-1.0); %Eosinophils 5.2 % (0.0-10.0); %Lymphocytes 16.3 % (21.0-51.0); %Monocytes 10.6 % (0.0-10.0); %Neutrophils 67.6 % (42.0-75.0); Hemoglobin 8.2 g/dL (14.0-18.0); Mean Corpuscular HGB CONC 31.1 g/dL (32.0-36.0); Mean Corpuscular Volume 80.6 fL (78.0-98.0); Platelet Count 154 thou/uL (130-400); RBC Distribution Width 17.7 % (11.5-14.5); Red Blood Cell (RBC) Count 3.26 mill/uL (4.70-6.10); White Blood Cell (WBC) Count 6.6 thou/uL (4.8-10.8)
[2019-03-24 07:09] LABS: Anion Gap 9 mmol/L (10-20); BUN (Urea Nitrogen) 40 mg/dL (8.4-25.7); Calc. Creatinine Clearance 41 mL/min (70-130); Calcium 8.3 mg/dL (7.8-10.44); Carbon Dioxide 25 mmol/L (23-31); Chloride 110 mmol/L (98-107); Estimated GFR-MDRD 41; Glucose 98 mg/dL (83-110); Magnesium 2.3 mg/dL (1.6-2.6); Phosphorus 2.9 mg/dL (2.3-4.7); Sodium 139 mmol/L (136-145)
[2019-03-24] MEDS ORDERED: Bisacodyl 10 MG SUPP PR SCH (07:30)
--- NOTE | 2019-03-24 08:14 | PDOC.CPN ---
- Subjective Date: 03/23/19 Time: 18:00 Interval history: The pt seen and examined on 03/23/2019 by me. No cardiac complaints. No overnight events. - Objective Allergies/Adverse Reactions: Allergies Allergy/AdvReac Type Severity Reaction Status Date / Time No Known Allergies Allergy Verified 12/12/18 15:45 Visit Medications: Current Medications Acetaminophen (Tylenol) 325 mg PO Q6HR [facility] Last Admin: 03/24/19 05:15 Dose: Not Given Acetaminophen/Codeine Phosphate (Tylenol #3) 1 tab PO Q6H PRN PRN Reason: Moderate to Severe Pain (6-10) Last Admin: 03/24/19 02:17 Dose: 1 tab Albuterol Sulfate (Proventil Hfa) 1 puff INH BID-RT [facility] Last Admin: 03/23/19 18:23 Dose: 1 puff Albuterol/Ipratropium (Duoneb) 3 ml NEB Q4H PRN PRN Reason: Wheezing Last Admin: 03/22/19 11:40 Dose: 3 ml Allopurinol (Zyloprim) 100 mg PO DAILY [facility] Last Admin: 03/23/19 09:30 Dose: 100 mg Alprazolam (Xanax) 0.5 mg PO TID PRN PRN Reason: Anxiety Last Admin: 03/22/19 13:22 Dose: 0.5 mg Amiodarone HCl (Cordarone) 200 mg PO DAILY [facility] Last Admin: 03/23/19 09:28 Dose: 200 mg Ascorbic Acid (Vitamin C) 500 mg PO BID-[facility] Last Admin: 03/23/19 17:04 Dose: 500 mg Aspirin (Ecotrin) 81 mg PO BID [facility] Last Admin: 03/23/19 20:25 Dose: 81 mg Atorvastatin Calcium (Lipitor) 20 mg PO QPM [facility] Last Admin: 03/23/19 20:25 Dose: 20 mg Bisacodyl (Dulcolax) 10 mg NE NOW [facility] Stop: 03/24/19 09:30 Cyclobenzaprine HCl (Flexeril) 5 mg PO TIDPRN PRN PRN Reason: Muscle Spasm Last Admin: 03/24/19 03:22 Dose: 5 mg Dextrose/Water (Dextrose 50%) 25 gm SLOW IVP PRN PRN PRN Reason: Hypoglycemia Ferrous Sulfate (Feosol) 325 mg PO BID-[facility] Last Admin: 03/23/19 17:05 Dose: 325 mg Glucagon (Glucagon) 1 mg IM PRN PRN PRN Reason: Hypoglycemia Hydralazine HCl (Apresoline) 10 mg SLOW IVP Q4H PRN PRN Reason: SBP > 170 or DBP > 100 Dextrose/Water (D5w) 1,000 mls @ 0 mls/hr IV .Q0M PRN PRN Reason: Hypoglycemia Losartan Potassium (Cozaar) 25 mg PO DAILY [facility] Last Admin: 03/23/19 09:28 Dose: 25 mg Metoprolol Tartrate (Lopressor) 100 mg PO BID [facility] Last Admin: 03/23/19 20:39 Dose: 100 mg Miscellaneous Information (Communication Order-Pharmacy) 1 each FS 2100 [facility] Last Admin: 03/23/19 20:25 Dose: 1 each Mometasone Furoate/Formoterol Fumar (Dulera 200 Mcg/5 Mcg Inhaler) 1 puff INH BID-RT [facility] Last Admin: 03/23/19 18:24 Dose: 1 puff Nitroglycerin (Nitro-Dur 0.4mg/Hr Patch) 1 patch TD DAILY [facility] Last Admin: 03/23/19 09:30 Dose: 1 patch Ondansetron HCl (Zofran Odt) 4 mg PO Q6H PRN PRN Reason: Nausea/Vomiting Ondansetron HCl (Zofran) 4 mg IVP Q6H PRN PRN Reason: Nausea Pantoprazole Sodium (Protonix) 40 mg PO DAILY [facility] Last Admin: 03/23/19 09:29 Dose: 40 mg Polyethylene Glycol (Miralax) 17 gm PO DAILY [facility] Last Admin: 03/23/19 09:31 Dose: Not Given Senna/Docusate Sodium (Senokot S) 2 tab PO BID [facility] Last Admin: 03/23/19 20:25 Dose: 2 tab Sodium Chloride (Flush - Normal Saline) 10 ml IVF PRN PRN PRN Reason: Saline Flush Last Admin: 03/23/19 09:31 Dose: 10 ml Tamsulosin HCl (Flomax) 0.4 mg PO DAILY [facility] Last Admin: 03/23/19 09:29 Dose: 0.4 mg Temazepam (Restoril) 30 mg PO QPM PRN PRN Reason: Insomnia Vital Signs & Weight: Vital Signs Temp Pulse Resp BP Pulse Ox 03/24/19 07:42 97.7 F 53 L 14 147/69 H 96 03/24/19 04:35 126/49 L 03/24/19 04:02 98.7 F 56 L 16 146/105 H 100 03/24/19 00:35 58 L 03/24/19 00:30 122 H 03/24/19 00:28 97.6 F 61 16 120/52 L 95 03/23/19 20:39 70 03/23/19 20:20 99 Weight 183 lb 6.4 oz - Physical Exam General: other (mildly confused and lethergic) Neck: supple neck Cardiac: regular rate and rhythm, S1/S2 Extremities: no cyanosis Skin: clear Musculoskeletal: decreased range of motion - Labs Result Diagrams: 03/24/19 06:40 03/24/19 06:40 Troponin/CKMB Troponin I Less than 0.010 ng/mL (< 0.028) 03/19/19 23:20 - Assessment/Plan Assessment/Plan: 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 S/p Open fracture of tibia and fibula with s/p repair - 3. CAD with hx of CABG - 4. HTN - 5. MALKA on CKD - 6. chronic Anemia - 7. Severe Carotid stenosis - The pt will f/u with Dr Mirza as outpt 8. Chronic Systolic HF with EF 40-45% - Will change Metoprolol tartrate 100mg BID to Coreg 25mg BID for hx of CAD and CHF management MAR reviewed * Dr Field's pt. * possible Afib? - The pt is on Amiodarone 200mg qd with ASA 325mg; high risk of falls
[2019-03-24] MEDS: Tamsulosin HCl 0.4 MG CAP PO SCH (08:21)
[2019-03-24] MEDS: Losartan 25 MG TAB PO SCH (08:21)
[2019-03-24] MEDS: Metoprolol Tartrate 100 MG TAB PO SCH (08:21)
[2019-03-24] MEDS: Allopurinol 100 MG TAB PO SCH (08:21)
[2019-03-24] MEDS: Ferrous Sulfate 325 MG TAB PO SCH ×2 (08:21→17:24)
[2019-03-24] MEDS: Aspirin 81 mg Enteric Coated Tablet PO SCH ×2 (08:21→20:28)
[2019-03-24] MEDS: Senokot S 8.6-50 MG TAB PO SCH ×2 (08:22→20:28)
[2019-03-24] MEDS: Ascorbic Acid 500 mg Chewable Tablet PO SCH ×2 (08:23→17:24)
[2019-03-24] MEDS: Polyethylene Glycol 3350 17 GM Packet PO SCH ×2 (08:23→15:23)
[2019-03-24] MEDS: Amiodarone 200 MG TAB PO SCH (08:23)
[2019-03-24] MEDS: Mometasone/Formoterol 120 PUFF INHALER INH SCH ×2 (08:45→18:26)
[2019-03-24] MEDS: PROVENTIL INHALER 6.7 G (200 INHALATIONS) INH SCH ×2 (08:45→18:24)
--- NOTE | 2019-03-24 09:11 | PRG ---
DATE OF SERVICE: 03/24/2019 SUBJECTIVE: Garrett is an 83-year-old male, postop day #3 from a left tibial nail. He is doing relatively well. He is planning for transfer to rehabilitation tomorrow. OBJECTIVE: He is alert. His incision was taken down partially to identify his entry wound and appears clean, there is no strike through at the dressing. He is neurovascularly intact. No shortening. IMPRESSION: An 83-year-old male, postop day #3, right tibial nail secondary to open tibial fracture, distal third metadiaphyseal fracture. PLAN: We will remove his dressing tomorrow for evaluation to decide whether or not VAC may be applied due to open nature and skin probability, but I did not want to disturb it today. We will recheck tomorrow. Job ID: [id number]
[2019-03-24] MEDS: Nitroglycerin 0.4mg/Hour PATCH TD SCH (09:22)
--- NOTE | 2019-03-24 10:33 | PRG ---
DATE OF SERVICE: 03/24/2019 SUBJECTIVE: The patient was seen this morning sitting up in bed with no signs of acute distress. He reported his pain was well controlled and he was feeling better today than yesterday. States he has more energy after receiving 1 unit of packed red blood cells. He has not been able to get up out of bed yet with physical therapy, but that is his goal for today. He has no complaints at the time of my evaluation. OBJECTIVE: VITAL SIGNS: Temperature 97.7, pulse 53, respirations 14, oxygen saturation 96% on 1.5 L nasal cannula, blood pressure 147/69. GENERAL: Well-appearing elderly male, lying in bed with no signs of acute distress. PULMONARY: Equal chest rise and fall. Clear breath sounds bilaterally. No signs of acute respiratory distress. CARDIAC: Regular rate and rhythm. No murmurs, gallops, or rubs. GI: Abdomen is soft, nontender, nondistended. EXTREMITIES: 2+ pulses in all extremities. Gross motor and sensation are intact. Right lower extremity with splint is clean, dry, and in place. NEUROLOGIC: GCS is 15. ASSESSMENT: 1. Status post ground level fall due to dizziness. 2. Right open tibia-fibula fracture, status post repair. 3. Acute kidney injury on chronic kidney disease, resolved. 4. Acute blood loss anemia, improving. 5. History of coronary artery disease, 5-vessel coronary artery bypass graft, cardiac stents, hypertension, chronic obstructive pulmonary disease, and chronic kidney disease. PLAN: Continue current diet and pain regimen. Continue physical and occupational therapy. Continue current home medications as clinically indicated. We will continue to follow up cardiology recs. The patient received 1 unit of packed red blood cells yesterday and his hemoglobin incremented. Also his creatinine is now at baseline. We will increase the aggressiveness of physical therapy today. He is pending placement at an acute rehab facility. The patient also needs to have a bowel movement. A suppository was ordered. He is ready for discharge at this time. The patient will be discussed with Dr. Diaz after this dictation. Job ID: [id number]
[2019-03-24] MEDS: Carvedilol 25 MG TAB PO SCH (17:25)
[2019-03-24] MEDS: NITROGLYCERIN PATCH REMOVAL FS SCH ×2 (20:28→21:46)
[2019-03-24] MEDS: Atorvastatin Calcium 20 MG TAB PO SCH (20:28)
--- NOTE | 2019-03-24 20:51 | PDOC.CPN ---
- Subjective Date: 03/24/19 Time: 20:53 Interval history: The pt seen and examined. No overnight events. No cardiac complaints. - Objective Allergies/Adverse Reactions: Allergies Allergy/AdvReac Type Severity Reaction Status Date / Time No Known Allergies Allergy Verified 12/12/18 15:45 Visit Medications: Current Medications Acetaminophen (Tylenol) 325 mg PO Q6HR [facility] Last Admin: 03/24/19 17:24 Dose: 325 mg Acetaminophen/Codeine Phosphate (Tylenol #3) 1 tab PO Q6H PRN PRN Reason: Moderate to Severe Pain (6-10) Last Admin: 03/24/19 15:21 Dose: 1 tab Albuterol Sulfate (Proventil Hfa) 1 puff INH BID-RT [facility] Last Admin: 03/24/19 18:24 Dose: 1 puff Albuterol/Ipratropium (Duoneb) 3 ml NEB Q4H PRN PRN Reason: Wheezing Last Admin: 03/22/19 11:40 Dose: 3 ml Allopurinol (Zyloprim) 100 mg PO DAILY [facility] Last Admin: 03/24/19 08:21 Dose: 100 mg Alprazolam (Xanax) 0.5 mg PO TID PRN PRN Reason: Anxiety Last Admin: 03/22/19 13:22 Dose: 0.5 mg Amiodarone HCl (Cordarone) 200 mg PO DAILY [facility] Last Admin: 03/24/19 08:23 Dose: 200 mg Ascorbic Acid (Vitamin C) 500 mg PO BID-[facility] Last Admin: 03/24/19 17:24 Dose: 500 mg Aspirin (Ecotrin) 81 mg PO BID [facility] Last Admin: 03/24/19 20:28 Dose: 81 mg Atorvastatin Calcium (Lipitor) 20 mg PO QPM [facility] Last Admin: 03/24/19 20:28 Dose: 20 mg Carvedilol (Coreg) 25 mg PO BID-[facility] Last Admin: 03/24/19 17:25 Dose: Not Given Cyclobenzaprine HCl (Flexeril) 5 mg PO TIDPRN PRN PRN Reason: Muscle Spasm Last Admin: 03/24/19 20:28 Dose: 5 mg Dextrose/Water (Dextrose 50%) 25 gm SLOW IVP PRN PRN PRN Reason: Hypoglycemia Ferrous Sulfate (Feosol) 325 mg PO BID-[facility] Last Admin: 03/24/19 17:24 Dose: 325 mg Glucagon (Glucagon) 1 mg IM PRN PRN PRN Reason: Hypoglycemia Hydralazine HCl (Apresoline) 10 mg SLOW IVP Q4H PRN PRN Reason: SBP > 170 or DBP > 100 Dextrose/Water (D5w) 1,000 mls @ 0 mls/hr IV .Q0M PRN PRN Reason: Hypoglycemia Losartan Potassium (Cozaar) 25 mg PO DAILY [facility] Last Admin: 03/24/19 08:21 Dose: 25 mg Miscellaneous Information (Communication Order-Pharmacy) 1 each FS 2100 [facility] Last Admin: 03/24/19 20:28 Dose: 1 each Mometasone Furoate/Formoterol Fumar (Dulera 200 Mcg/5 Mcg Inhaler) 1 puff INH BID-RT [facility] Last Admin: 03/24/19 18:26 Dose: 1 puff Nitroglycerin (Nitro-Dur 0.4mg/Hr Patch) 1 patch TD DAILY [facility] Last Admin: 03/24/19 09:22 Dose: 1 patch Ondansetron HCl (Zofran Odt) 4 mg PO Q6H PRN PRN Reason: Nausea/Vomiting Ondansetron HCl (Zofran) 4 mg IVP Q6H PRN PRN Reason: Nausea Pantoprazole Sodium (Protonix) 40 mg PO DAILY [facility] Last Admin: 03/24/19 08:21 Dose: 40 mg Polyethylene Glycol (Miralax) 17 gm PO DAILY [facility] Last Admin: 03/24/19 15:23 Dose: Not Given Senna/Docusate Sodium (Senokot S) 2 tab PO BID [facility] Last Admin: 03/24/19 20:28 Dose: 2 tab Sodium Chloride (Flush - Normal Saline) 10 ml IVF PRN PRN PRN Reason: Saline Flush Last Admin: 03/23/19 09:31 Dose: 10 ml Tamsulosin HCl (Flomax) 0.4 mg PO DAILY [facility] Last Admin: 03/24/19 08:21 Dose: 0.4 mg Temazepam (Restoril) 30 mg PO QPM PRN PRN Reason: Insomnia Vital Signs & Weight: Vital Signs Temp Pulse Resp BP Pulse Ox 03/24/19 19:25 98.2 F 59 L 16 128/72 100 03/24/19 18:24 61 12 93 L 03/24/19 15:35 98 F 55 L 14 123/65 100 03/24/19 11:41 98.3 F 49 L 14 131/64 100 Weight 183 lb 6.4 oz - Physical Exam General: alert & oriented x3 HEENT: mucus membranes moist Neck: supple neck Cardiac: regular rate and rhythm, other (with skipping beats; possible PVC/PAC or Afib?) Lungs: clear to auscultation, decreased breath sounds - Labs Result Diagrams: 03/24/19 06:40 03/24/19 06:40 Troponin/CKMB Troponin I Less than 0.010 ng/mL (< 0.028) 03/19/19 23:20 - Assessment/Plan Assessment/Plan: 1. Stable Angina - stable; he uses NTG patch as schedule at home 2. S/p Open fracture of tibia and fibula with s/p repair - 3. CAD with hx of CABG - on bblocker, ASA, and statin 4. HTN - stable 5. MALKA on CKD - 6. chronic Anemia - 7. Severe Carotid stenosis - The pt will f/u with Dr Mirza as outpt 8. Chronic Systolic HF with EF 40-45% - Will change Metoprolol tartrate 100mg BID to Coreg 25mg BID for hx of CAD and CHF management MAR reviewed * Dr Field's pt. * possible Afib? - The pt is on Amiodarone 200mg qd with ASA 325mg; high risk of falls
--- NOTE | 2019-03-24 22:57 | PRG ---
DATE OF SERVICE: 03/24/2019 SUBJECTIVE: The patient remains on the surgical floor, status post ground level fall, when he sustained an open right tibia and fibula fracture. He has undergone open reduction and internal fixation of same. He is tolerating that and he has been progressing with physical and occupational therapy. The patient did require 1 unit of packed red blood cells, which he reports made him feel "much better." The patient is currently tolerating a diet. His pain is controlled. OBJECTIVE: VITAL SIGNS: Stable. The patient is afebrile. GENERAL: The patient is resting comfortably in bed. He had no complaints. He states that his appetite has improved some. RESPIRATORY: Respirations are nonlabored. EXTREMITIES: Neurovascularly intact x4. ASSESSMENT: 1. Status post ground level fall due to dizziness. 2. Right open tibia-fibula fracture, status post open reduction and internal fixation of same. 3. Acute on chronic kidney disease, resolved. 4. Acute blood loss anemia, improved. 5. History of coronary artery disease, five-vessel coronary artery bypass graft. 6. History of cardiac stents, hypertension, chronic obstructive pulmonary disease, and chronic kidney disease. PLAN: Plan will be to continue supportive care to include physical and occupational therapy and await final placement decision. Job ID: [id number]
[2019-03-25] MEDS: Acetaminophen 325 MG TAB PO SCH ×4 (05:47→23:33)
[2019-03-25] MEDS: Mometasone/Formoterol 120 PUFF INHALER INH SCH ×2 (08:21→18:51)
[2019-03-25] MEDS: PROVENTIL INHALER 6.7 G (200 INHALATIONS) INH SCH ×2 (08:22→18:51)
[2019-03-25] MEDS: Losartan 25 MG TAB PO SCH (09:21)
[2019-03-25] MEDS: Allopurinol 100 MG TAB PO SCH (09:21)
[2019-03-25] MEDS: Aspirin 81 mg Enteric Coated Tablet PO SCH ×2 (09:21→21:14)
[2019-03-25] MEDS: Ferrous Sulfate 325 MG TAB PO SCH ×2 (09:21→17:35)
[2019-03-25] MEDS: Tamsulosin HCl 0.4 MG CAP PO SCH (09:21)
[2019-03-25] MEDS: Carvedilol 25 MG TAB PO SCH ×2 (09:22→17:35)
[2019-03-25] MEDS: Amiodarone 200 MG TAB PO SCH (09:22)
[2019-03-25] MEDS: Senokot S 8.6-50 MG TAB PO SCH ×2 (09:23→21:14)
[2019-03-25] MEDS: Nitroglycerin 0.4mg/Hour PATCH TD SCH (09:23)
[2019-03-25] MEDS: Ascorbic Acid 500 mg Chewable Tablet PO SCH ×2 (09:23→17:35)
[2019-03-25] MEDS: Polyethylene Glycol 3350 17 GM Packet PO SCH (09:24)
[2019-03-25] MEDS: Acetaminophen/Codeine 30-300mg Tablet PO SCH ×3 (09:25→21:14)
--- NOTE | 2019-03-25 10:39 | PDOC.CPN ---
- Subjective Date: 03/25/19 Time: 10:40 Interval history: The pt seen and examined. No overnight events. No cardiac complaints. - Objective Allergies/Adverse Reactions: Allergies Allergy/AdvReac Type Severity Reaction Status Date / Time No Known Allergies Allergy Verified 12/12/18 15:45 Visit Medications: Current Medications Acetaminophen (Tylenol) 325 mg PO Q6HR [facility] Last Admin: 03/25/19 05:47 Dose: Not Given Acetaminophen/Codeine Phosphate (Tylenol #3) 1 tab PO Q6H [facility] Last Admin: 03/25/19 09:25 Dose: 1 tab Acetaminophen/Codeine Phosphate (Tylenol #3) 1 tab PO Q6H PRN PRN Reason: Breakthrough Pain Albuterol Sulfate (Proventil Hfa) 1 puff INH BID-RT [facility] Last Admin: 03/25/19 08:22 Dose: 1 puff Albuterol/Ipratropium (Duoneb) 3 ml NEB Q4H PRN PRN Reason: Wheezing Last Admin: 03/22/19 11:40 Dose: 3 ml Allopurinol (Zyloprim) 100 mg PO DAILY [facility] Last Admin: 03/25/19 09:21 Dose: 100 mg Alprazolam (Xanax) 0.5 mg PO TID PRN PRN Reason: Anxiety Last Admin: 03/22/19 13:22 Dose: 0.5 mg Amiodarone HCl (Cordarone) 200 mg PO DAILY [facility] Last Admin: 03/25/19 09:22 Dose: 200 mg Ascorbic Acid (Vitamin C) 500 mg PO BID-[facility] Last Admin: 03/25/19 09:23 Dose: 500 mg Aspirin (Ecotrin) 81 mg PO BID [facility] Last Admin: 03/25/19 09:21 Dose: 81 mg Atorvastatin Calcium (Lipitor) 20 mg PO QPM [facility] Last Admin: 03/24/19 20:28 Dose: 20 mg Carvedilol (Coreg) 25 mg PO BID-[facility] Last Admin: 03/25/19 09:22 Dose: Not Given Cyclobenzaprine HCl (Flexeril) 5 mg PO TIDPRN PRN PRN Reason: Muscle Spasm Last Admin: 03/24/19 20:28 Dose: 5 mg Dextrose/Water (Dextrose 50%) 25 gm SLOW IVP PRN PRN PRN Reason: Hypoglycemia Ferrous Sulfate (Feosol) 325 mg PO BID-WM [facility] Last Admin: 03/25/19 09:21 Dose: 325 mg Glucagon (Glucagon) 1 mg IM PRN PRN PRN Reason: Hypoglycemia Hydralazine HCl (Apresoline) 10 mg SLOW IVP Q4H PRN PRN Reason: SBP > 170 or DBP > 100 Dextrose/Water (D5w) 1,000 mls @ 0 mls/hr IV .Q0M PRN PRN Reason: Hypoglycemia Lactulose (Lactulose) 30 gm PO DAILY [facility] Losartan Potassium (Cozaar) 25 mg PO DAILY [facility] Last Admin: 03/25/19 09:21 Dose: 25 mg Miscellaneous Information (Communication Order-Pharmacy) 1 each FS 2100 [facility] Last Admin: 03/24/19 21:46 Dose: Not Given Mometasone Furoate/Formoterol Fumar (Dulera 200 Mcg/5 Mcg Inhaler) 1 puff INH BID-RT [facility] Last Admin: 03/25/19 08:21 Dose: 1 puff Nitroglycerin (Nitro-Dur 0.4mg/Hr Patch) 1 patch TD DAILY [facility] Last Admin: 03/25/19 09:23 Dose: 1 patch Ondansetron HCl (Zofran Odt) 4 mg PO Q6H PRN PRN Reason: Nausea/Vomiting Ondansetron HCl (Zofran) 4 mg IVP Q6H PRN PRN Reason: Nausea Pantoprazole Sodium (Protonix) 40 mg PO DAILY [facility] Last Admin: 03/25/19 09:23 Dose: 40 mg Polyethylene Glycol (Miralax) 17 gm PO DAILY [facility] Last Admin: 03/25/19 09:24 Dose: Not Given Senna/Docusate Sodium (Senokot S) 2 tab PO BID [facility] Last Admin: 03/25/19 09:23 Dose: 2 tab Sodium Chloride (Flush - Normal Saline) 10 ml IVF PRN PRN PRN Reason: Saline Flush Last Admin: 03/23/19 09:31 Dose: 10 ml Tamsulosin HCl (Flomax) 0.4 mg PO DAILY [facility] Last Admin: 03/25/19 09:21 Dose: 0.4 mg Temazepam (Restoril) 30 mg PO QPM PRN PRN Reason: Insomnia Vital Signs & Weight: Vital Signs Temp Pulse Resp BP Pulse Ox 03/25/19 08:00 95 03/25/19 07:53 98.3 F 60 20 134/73 92 L 03/25/19 02:58 98.7 F 54 L 16 128/51 L 99 03/24/19 23:12 98.1 F 60 16 133/40 L 99 Weight 183 lb 6.4 oz - Physical Exam General: alert & oriented x3 Neck: supple neck Cardiac: irregularly regular Lungs: decreased breath sounds Neuro: cranial nerve 2-12 intact - Labs Result Diagrams: 03/24/19 06:40 03/24/19 06:40 Troponin/CKMB Troponin I Less than 0.010 ng/mL (< 0.028) 03/19/19 23:20 - Assessment/Plan Assessment/Plan: 1. Stable Angina - stable; he uses NTG patch as schedule at home 2. S/p Open fracture of tibia and fibula with s/p repair - 3. CAD with hx of CABG - on bblocker, ASA, and statin 4. HTN - stable 5. MALKA on CKD - slowly improving 6. chronic Anemia - 7. Severe Carotid stenosis - The pt will f/u with Dr Mirza as outpt 8. Chronic Systolic HF with EF 40-45% - Will change Metoprolol tartrate 100mg BID to Coreg 25mg BID for hx of CAD and CHF management MAR reviewed * Dr Field's pt. * possible Afib? - The pt is on Amiodarone 200mg qd with ASA 325mg; He stated he never had cardiac arrest but had "irregular Heart rhythm" before. High risk of falls Pt. seen and eval. by me. I agree with the A/P by the FREIGHT HUSTLER. Chest clear. RRR. cardiac status is stable. I will sign off. If any changes please consult again. Thank you. aram
[2019-03-25] MEDS: Cyclobenzaprine 10 MG TAB PO PRN (11:48)
--- NOTE | 2019-03-25 13:11 | PRG ---
DATE OF SERVICE: 03/25/2019 SUBJECTIVE: The patient was seen this morning, sitting up in bed, having breakfast with no signs of acute distress. He reported that he choked on a piece of bread earlier, reported likely because it was very dry. He has not had difficulty swallowing before. States pain is controlled. He has not been able to get out of bed yet with physical and occupational therapy. Pain has not been a factor. OBJECTIVE: VITAL SIGNS: Temperature 98.3, pulse 60, respirations 20, oxygen saturation 92% on 1 L nasal cannula, and blood pressure 134/73. GENERAL: Well-appearing elderly male, sitting up in bed with no signs of acute distress. PULMONARY: Equal chest rise and fall. Clear breath sounds bilaterally. No signs of acute respiratory distress. CARDIAC: Regular rate and rhythm. No murmurs, gallops, or rubs. GI: Abdomen is soft, nontender, and nondistended. EXTREMITIES: 2+ pulses in all extremities. Gross motor and sensation are intact. Right lower extremity with splint that is clean, dry, and place. No significant swelling noted. NEUROLOGIC: GCS is 15. LABORATORY FINDINGS: There are no new laboratory findings to discuss. DIAGNOSTIC FINDINGS: There are no new diagnostic findings to discuss. ASSESSMENT: 1. Status post ground level fall due to dizziness. 2. Right open tib-fib fracture, status post repair. 3. Acute kidney injury on chronic kidney disease, resolved. 4. Acute blood loss anemia, stable. 5. History of coronary artery disease, 5-vessel coronary artery bypass grafting, stents. 6. Hypertension. 7. Chronic obstructive pulmonary disease. 8. Chronic kidney disease. 9. Severe carotid stenosis on the right and moderate carotid stenosis on the left, new to this admission. PLAN: Continue current diet. We will schedule the patient Tylenol No. 3 and have an additional Tylenol No. 3 p.r.n. as needed. He is to be seen by Speech-Language Pathology today because he choked and he is not sure why. We will follow up their recommendations. The patient will also receive lactulose daily as he has not had a bowel movement in this admission. He will continue to have it daily until he has a bowel movement. He has been intermittently refusing his bowel regimen. We did discuss it with him. We will increase physical and occupational therapy today. I did reach out to Dr. Mirza's office again to see if he plans to see the patient during the hospital visit for his severe carotid artery acidosis or if he prefers to have the patient followup in his clinic. They are planning to speak with him today and will call me back to let us know they are his preference. Job ID: [id number]
[2019-03-25] MEDS: Acetaminophen/Codeine 30-300mg Tablet PO PRN (14:21)
[2019-03-25] MEDS: Ondansetron PF 4 MG/2 ML Vial IVP PRN (15:31)
[2019-03-25] MEDS: ALPRAZolam 0.5 MG TAB PO PRN (20:22)
[2019-03-25] MEDS ORDERED: Ondansetron PF 4 MG/2 ML Vial IVP SCH (20:30)
[2019-03-25] MEDS: Atorvastatin Calcium 20 MG TAB PO SCH (21:14)
[2019-03-25] MEDS: NITROGLYCERIN PATCH REMOVAL FS SCH (21:16)
--- NOTE | 2019-03-26 00:04 | PRG ---
DATE OF SERVICE: 03/25/2019 SUBJECTIVE: The patient remains on the surgical floor. He is status post a ground level fall which he sustained a right open tib-fib fracture. The patient has undergone open reduction and internal fixation of same, and he is currently awaiting placement. The patient's chief complaint tonight is he has still not had a bowel movement, though he has also been refusing his bowel medicines and he is also complaining of nausea. I have explained to him that these two are likely related and that he needs to take his bowel medicines in order to have a bowel movement and help with his nausea. He agreed to this and we have ordered a one-time dose of lactulose for tonight. OBJECTIVE: VITAL SIGNS: Stable. The patient is afebrile. GENERAL: The patient appears comfortable. He is awake, conversant, appears in no distress. LUNGS: Respiratory rate is nonlabored. EXTREMITIES: Neurovascularly intact x4. Postop dressing is clean, dry, and intact. ASSESSMENT AND PLAN: 1. Status post ground level fall due to dizziness. 2. Right open tibia and fibula fracture, status post open reduction and internal fixation of same. 3. Yasjv-xi-wmalyfh kidney disease, resolved/stable. 4. Acute blood loss anemia, stable. 5. History of coronary artery disease, five-vessel coronary artery bypass graft and stents. 6. Hypertension. 7. Chronic obstructive pulmonary disease. 8. Severe carotid stenosis on the right and moderate carotid stenosis on the left, new to this admission. Per discussion with Dr. Mirza, the patient is to follow up as an outpatient. Plan will be to continue supportive care. Await final placement decision. Job ID: [id number]
[2019-03-26] MEDS: Acetaminophen/Codeine 30-300mg Tablet PO SCH ×4 (05:30→21:45)
[2019-03-26] MEDS: Acetaminophen/Codeine 30-300mg Tablet PO PRN (06:33)
[2019-03-26] MEDS: Acetaminophen 325 MG TAB PO SCH ×4 (06:33→23:51)
[2019-03-26] MEDS: PROVENTIL INHALER 6.7 G (200 INHALATIONS) INH SCH ×2 (07:24→18:42)
[2019-03-26] MEDS: Mometasone/Formoterol 120 PUFF INHALER INH SCH ×2 (07:26→18:43)
[2019-03-26] MEDS: Allopurinol 100 MG TAB PO SCH (08:07)
[2019-03-26] MEDS: Tamsulosin HCl 0.4 MG CAP PO SCH (08:08)
[2019-03-26] MEDS: Carvedilol 25 MG TAB PO SCH ×2 (08:08→15:59)
[2019-03-26] MEDS: Senokot S 8.6-50 MG TAB PO SCH ×3 (08:08→21:45)
[2019-03-26] MEDS: Amiodarone 200 MG TAB PO SCH (08:08)
[2019-03-26] MEDS: Ferrous Sulfate 325 MG TAB PO SCH ×2 (08:08→16:00)
[2019-03-26] MEDS: Ascorbic Acid 500 mg Chewable Tablet PO SCH ×2 (08:08→15:59)
[2019-03-26] MEDS: Aspirin 81 mg Enteric Coated Tablet PO SCH ×3 (08:08→21:44)
[2019-03-26] MEDS: Losartan 25 MG TAB PO SCH (08:08)
[2019-03-26] MEDS: Nitroglycerin 0.4mg/Hour PATCH TD SCH (08:10)
[2019-03-26] MEDS: Polyethylene Glycol 3350 17 GM Packet PO SCH ×2 (08:10→12:19)
--- NOTE | 2019-03-26 08:49 | PRG ---
DATE OF SERVICE: 03/26/2019 SUBJECTIVE: Garrett is postop day 6 from a right tibial nail fixation with an accompanying open reduction and internal fixation distal fibula on the same side. He is pending placement at this point, has no complaints. His wound was taken down and evaluated a few days ago by my colleague and was reported to be in good shape. His splint has been intact and he has been rewrapped since. OBJECTIVE: Neurovascular status is good. He has good digital excursion. No strike through. IMPRESSION: Postop day 6, right tibial metadiaphyseal fracture, status post transtibial nail fixation with open reduction and internal fixation for distal fibular fracture. PLAN: Continue current care. I will schedule his followup in the next few weeks for stitch removal and splint check in the clinic. Job ID: [id number]
[2019-03-26] MEDS: Cyclobenzaprine 10 MG TAB PO PRN (09:37)
[2019-03-26] MEDS: Bisacodyl 10 MG SUPP PR SCH (09:39)
[2019-03-26] MEDS: ALPRAZolam 0.5 MG TAB PO PRN (09:58)
[2019-03-26] MEDS: Ondansetron PF 4 MG/2 ML Vial IVP PRN (09:58)
[2019-03-26] MEDS: Gabapentin 100 MG CAP PO SCH ×3 (15:55→21:44)
--- NOTE | 2019-03-26 19:19 | PRG ---
DATE OF SERVICE: 03/26/2019 SUBJECTIVE: Mr. Clarke is an 83-year-old male status post ground level fall. He sustained right open tib-fib fracture. He underwent ORIF of right open tib-fib fracture postop day #6 today. The patient also has history of coronary artery disease with 5-vessel bypass, hypertension, COPD, chronic kidney disease, and severe right carotid stenosis and upper left moderate carotid stenosis. Upon consulting with Dr. Mirza, Dr. Mirza recommend outpatient treatment in regard to his carotid stenosis. Consulting to Cardiology, Dr. Kirkland and Dr. Harrington. Continue current medications regimen for his coronary artery disease. The patient reports he has been doing good. Pain is well controlled. He is able to work with PT/OT. His bowel regimen is normal. He has 3 bowels today. He awaits for placement in group home facility. OBJECTIVE: GENERAL: The patient lying in bed, comfortable with no acute respiratory distress. VITAL SIGNS: Temperature 97.7, heart rate 78, respiratory rate 18, O2 saturation 97% on room air, and blood pressure 112/58. LUNGS: Clear bilaterally. HEART: Regular rate and rhythm. ABDOMEN: Soft and nondistended. EXTREMITIES: Neurovascularly intact x4. NEUROLOGIC: No focal neurology deficits. ASSESSMENT: 1. Status post ground level fall. 2. Right open tibia-fibula fracture, status post open reduction and internal fixation of right open tibia-fibula fracture, postop day #6. 3. Acute on chronic kidney disease, resolved. 4. Acute blood loss anemia, stable. 5. History of hypertension and chronic obstructive pulmonary disease, stable. 6. History of coronary artery disease with 5-vessel bypass, stable. 7. Severe right carotid stenosis and moderate left carotid stenosis, conservative treatment. PLAN: Plan will be to continue supportive care. Continue pain control. Continue DVT prophylaxis. The patient will be working with PT/OT tomorrow. Await for placement in group home facility. The patient was seen and evaluated with Dr. Diaz on round this morning. Job ID: [id number]
[2019-03-26] MEDS: Atorvastatin Calcium 20 MG TAB PO SCH (21:41)
[2019-03-26] MEDS: NITROGLYCERIN PATCH REMOVAL FS SCH (21:42)
--- NOTE | 2019-03-27 00:18 | PRG ---
DATE OF SERVICE: 03/26/2019 SUBJECTIVE: Patient remains on the surgical floor. He is hospital day #6, postop day #5, status post open reduction and internal fixation of a right open tib-fib fracture. The patient has been progressing with physical and occupational therapy. Yesterday, during my visit, his chief complaint was not having a bowel movement that has subsequently resolved. He has had 2 bowel movements and stated that his nausea has resolved. His pain is controlled. He is tolerating a diet. He is currently awaiting placement to [facility] in [place]. OBJECTIVE: Vital signs stable. The patient is afebrile. The patient is asleep at my visit. I did not awaken him. He appears comfortable. His respiratory rate appears nonlabored. His postop dressing and splint are clean, dry, and intact. ASSESSMENT AND PLAN: 1. Status post ground level fall. 2. Dizziness. 3. Right open tib-fib fracture, status post open reduction and internal fixation of same. 4. Acute on chronic kidney disease, resolved/stable. 5. Acute blood loss anemia, stable. 6. History of coronary artery disease, 5-vessel coronary artery bypass graft and stents. 7. Hypertension. 8. Chronic obstructive pulmonary disease, stable. 9. Severe carotid stenosis on the right and moderate carotid stenosis on the left, new to this admission. The patient will follow up with Dr. Mirza as an outpatient. PLAN: Will be to continue supportive care and await final placement determination. Job ID: [id number]
[2019-03-27] MEDS: Acetaminophen 325 MG TAB PO SCH ×2 (05:43→12:05)
[2019-03-27] MEDS: Acetaminophen/Codeine 30-300mg Tablet PO PRN (05:43)
[2019-03-27] MEDS: Acetaminophen/Codeine 30-300mg Tablet PO SCH ×3 (05:44→15:16)
[2019-03-27] MEDS: PROVENTIL INHALER 6.7 G (200 INHALATIONS) INH SCH (08:13)
[2019-03-27] MEDS: Mometasone/Formoterol 120 PUFF INHALER INH SCH (08:14)
[2019-03-27] MEDS: Ferrous Sulfate 325 MG TAB PO SCH (08:19)
[2019-03-27] MEDS: Senokot S 8.6-50 MG TAB PO SCH (08:19)
[2019-03-27] MEDS: Tamsulosin HCl 0.4 MG CAP PO SCH (08:19)
[2019-03-27] MEDS: Losartan 25 MG TAB PO SCH (08:19)
[2019-03-27] MEDS: Nitroglycerin 0.4mg/Hour PATCH TD SCH (08:20)
[2019-03-27] MEDS: Aspirin 81 mg Enteric Coated Tablet PO SCH (08:20)
[2019-03-27] MEDS: Amiodarone 200 MG TAB PO SCH (08:20)
[2019-03-27] MEDS: Ascorbic Acid 500 mg Chewable Tablet PO SCH (08:20)
[2019-03-27] MEDS: Carvedilol 25 MG TAB PO SCH (08:20)
[2019-03-27] MEDS: Gabapentin 100 MG CAP PO SCH ×2 (08:20→14:12)
[2019-03-27] MEDS: Allopurinol 100 MG TAB PO SCH (08:25)
[2019-03-27] MEDS: Bisacodyl 10 MG SUPP PR SCH (08:25)
[2019-03-27] MEDS: Polyethylene Glycol 3350 17 GM Packet PO SCH (08:25)
[2019-03-27 15:41] VITALS: BP 104/57; TEMP 97.6
--- NOTE | 2019-03-27 16:27 | DIS ---
DATE OF ADMISSION: 03/20/2019 DATE OF DISCHARGE: 03/27/2019 ADMISSION DIAGNOSES: 1. Status post ground level fall. 2. Right open tib-fib fracture. 3. Chfpg-rq-ebcyrjz kidney disease, resolved. 4. Acute blood loss anemia, stable. 5. History of hypertension, chronic obstructive pulmonary disease, and coronary artery disease with 5-vessel bypass history. 6. History of severe right carotid stenosis and moderate left carotid stenosis. DISCHARGE DIAGNOSES: 1. Status post ground level fall. 2. Right open tib-fib fracture, status post open reduction and internal fixation of the right open tib-fib fracture. 3. Amwdf-jj-djrjccl kidney disease, resolved. 4. Acute blood loss anemia, stable. 5. History of hypertension and coronary artery disease with 5-vessel bypass, stable. 6. Chronic obstructive pulmonary disease, stable. 7. Severe right carotid stenosis and moderate left carotid stenosis. Conservative treatment. CONSULTING PHYSICIANS: Dr. Davin Rob, Dr. Garrett Mirza, and Dr. Andrey Harrington. PROCEDURE PERFORMED: Open reduction and internal fixation of right open tib-fib fracture. HOSPITAL COURSE: Mr. Clarke is an 83-year-old male, who is status post ground level fall. He sustained a right open tib-fib fracture. He also has vqrbj-yt-tgcqeix kidney disease and acute blood loss anemia and had been stable over time. He also has a history of coronary artery disease with 5-vessel coronary artery bypass graft and stents, hypertension, and COPD. All have been stable with conservative treatment. The patient also has bhuysfmj-eo-aqduyv carotid stenosis bilaterally, currently stable with conservative treatment. Dr. Mirza would like the patient to see Dr. Mirza as outpatient after the patient is discharged. Continue aspirin for DVT prophylaxis as well as for carotid stenosis. Postoperatively, the patient has been doing good. His pain is well controlled. He tolerated his regular diet. His bowel regimen is normal. Urine is adequate. His vital signs have been stable. He has been working with PT/OT. PHYSICAL EXAMINATION: GENERAL: The patient is lying down in bed comfortably with no acute respiratory distress. VITAL SIGNS: Temperature 97.8, heart rate 73, respiratory rate 16, O2 saturation 93% on 2 L cannula, and blood breast pressure is 120/66. LUNGS: Clear bilaterally. HEART: Regular rate and rhythm. ABDOMEN: Soft and nondistended. EXTREMITIES: Postoperative dressing clean, dry, and intact. Neurovascularly intact x4. NEUROLOGIC: No focal neurology deficits. The patient is alert, awake, and oriented x3. GCS 15. DISCHARGE DISPOSITION: assisted home facility. DISCHARGE CONDITION: Fair. DISCHARGE INSTRUCTIONS: The patient is to take medication as directed. The patient is to continue working with PT/OT. The patient is to keep his dressings clean and dry and elevate the lower extremity. The patient is to see Dr. Mirza in 10 days after discharge. The patient is to see Dr. Rob 10 days after discharge, and the patient is to continue followup with his PCP and Cardiology after discharge. DISCHARGE MEDICATIONS: Include: 1. Tylenol No. 3. 2. Allopurinol. 3. Xanax. 4. Amiodarone. 5. Vitamin C. 6. Aspirin. 7. Atorvastatin. 8. Dulcolax. 9. Carvedilol. 10. Cyclobenzaprine. 11. Losartan. 12. Nitroglycerin. 13. Ondansetron. 14. Pantoprazole. 15. Sennosides. 16. Tamsulosin. 17. Temazepam. Job ID: [id number]
--- NOTE | 2019-03-28 03:16 | PQF ---
OBINNA JIMENEZ HANG PA [id number] SURG B- 3328 [id number] CLINICAL DOCUMENTATION CLARIFICATION FORM: POST DISCHARGE Addendum to original discharge summary date: ____ Late entry note date: __ DATE: 03/28/19 ATTN: Kj Palencia Please exercise your independent, professional judgment in responding to the clarification form. Clinical indicators are provided on the bottom of this form for your review Cam you please further clarify the diagnosis based on the clinical indicators below? Please check appropriate box(s): [ ] Encephalopathy: Type: [ ] Acute [ ] Subacute [ ] Chronic Etiology: [ ] Hypertensive [ ] Metabolic [ ] Toxic [ ] Unspecified [ ] in the setting of underlying dementia [ ] Other (please specify) [ x ] Transient Alteration of Awareness [ ] Other diagnosis please specify [ ] Unable to determine In addition, please specify: Present on Admission (POA): [ x ] Yes [ ] No [ ] Unable to determine For continuity of documentation, please document condition throughout progress notes and discharge summary. Thank You. CLINICAL INDICATORS - SIGNS / SYMPTOMS / LABS PN 03/24 "mildly confused and lethargic" ED Notes 03/20 "Patient presents for evaluation of fall" HP 03/20 "CC:Dizziness" Brain CT 03/19 "no acute intracranial findings" RISK FACTORS ED Notes 03/20-83 years old male ED Notes 03/20-s/p fall HP 03/20-HTN PN 03/24-CKD PN 03/24-MALKA DS 03/27-ABLA DS 03/27-s/p ORIF TREATMENTS: Collected 03/19-Brain CT MAR 03/19-IVF JUL 09-Lactulose 30mg Oral PN 03/20-Blood transfusion (This form is maintained as a part of the permanent medical record) 2014 [employer]. All Rights Reserved Praveen [email or web address] [not provided] PREMAD
--- NOTE | 2019-03-29 02:29 | PQF ---
OBINNA JIMENEZ HANG PA [id number] SURG B- 3328 [id number] CLINICAL DOCUMENTATION CLARIFICATION FORM: POST DISCHARGE Addendum to original discharge summary date: ____ Late entry note date: __ DATE: 03/29/19 ATTN: Kj Palencia Please exercise your independent, professional judgment in responding to the clarification form. Clinical indicators are provided on the bottom of this form for your review Can you please further clarify the diagnosis based on the clinical indicators below? Please check appropriate box(s): [ ] Hypovolemic Shock [ ] Cardiogenic Shock [ ] Hemorrhagic Shock due to surgery: [ ] Shock Unspecified [ ] Other diagnosis [ x ] Unable to determine In addition, please specify: Present on Admission (POA): [ ] Yes [ x ] No [ ] Unable to determine For continuity of documentation, please document condition throughout progress notes and discharge summary. Thank You. CLINICAL INDICATORS - SIGNS / SYMPTOMS / LABS ED Vital Signs: 03/1936=806/54 Consult 03/20 "EKG shows RBBB" Consult 03/20 "He does state he has had chest pain" Consult 03/20 "Atypical chest pain" PN 03/22 "he receive 250ml of IV fluid for hypotension" PN 03/24 "mildly confused and lethargic" RISK FACTORS ED Notes 03/19-83 years old male ED Notes 03/19-s/p fall ED Notes 03/19-CAD ED Notes 03/19-HLD ED Notes 03/19-HTN OP Note 03/20-s/p ORIF Consult 03/20-Former smoker PN 03/22-MALKA PN 03/22-CKD PN 03/23-ABLA PN 03/23-CHF TREATMENTS: Collected 03/22-Echo PN 03/22-Oxygen PN 03/22-IVF PN 03/23-Blood transfusion RBC MAR 03/20-Epinephrine 1mg IV (This form is maintained as a part of the permanent medical record) 2015 [employer]. All Rights Reserved Praveen [email or web address] [not provided] MTDD
== END 2019-03-27 15:40 | DRG 493 ==
LOC: ERS 17:37 → 2NO 03-20 00:07 → SURG B 03-23 12:54
PROVIDERS: ADMIT Surgery; ATTEND Surgery
PROC: 0QSG36Z Reposition Right Tibia with Intramedullary Internal Fixation Device, Percutaneous Approach (ICD-10-PCS; principal; 2019-03-20)
PROC: 8E0YXBZ Computer Assisted Procedure of Lower Extremity (ICD-10-PCS; 2019-03-20)
PROC: 3E02340 Introduction of Influenza Vaccine into Muscle, Percutaneous Approach (ICD-10-PCS; 2019-03-20)
PROC: 3E033XZ Introduction of Vasopressor into Peripheral Vein, Percutaneous Approach (ICD-10-PCS; 2019-03-20)
PROC: 30233N1 Transfusion of Nonautologous Red Blood Cells into Peripheral Vein, Percutaneous Approach (ICD-10-PCS; 2019-03-23)
DX: S82.241B Displaced spiral fracture of shaft of right tibia, initial encounter for open fracture type I or II (principal); D62 Acute posthemorrhagic anemia; N17.9 Acute kidney failure, unspecified; I13.0 Hypertensive heart and chronic kidney disease with heart failure and stage 1 through stage 4 chronic kidney disease, or unspecified chronic kidney disease; I50.22 Chronic systolic (congestive) heart failure; Z23 Encounter for immunization; W18.30XA Fall on same level, unspecified, initial encounter; E78.5 Hyperlipidemia, unspecified; J44.9 Chronic obstructive pulmonary disease, unspecified; N18.3 Chronic kidney disease, stage 3 (moderate); I45.10 Unspecified right bundle-branch block; I65.23 Occlusion and stenosis of bilateral carotid arteries; S82.441B Displaced spiral fracture of shaft of right fibula, initial encounter for open fracture type I or II; I44.0 Atrioventricular block, first degree; D63.1 Anemia in chronic kidney disease; I08.1 Rheumatic disorders of both mitral and tricuspid valves; I25.708 Atherosclerosis of coronary artery bypass graft(s), unspecified, with other forms of angina pectoris; I25.118 Atherosclerotic heart disease of native coronary artery with other forms of angina pectoris; I48.91 Unspecified atrial fibrillation; I27.20 Pulmonary hypertension, unspecified; Z95.1 Presence of aortocoronary bypass graft; Z87.891 Personal history of nicotine dependence; Z95.5 Presence of coronary angioplasty implant and graft; I25.2 Old myocardial infarction; Z79.51 Long term (current) use of inhaled steroids; Z79.899 Other long term (current) drug therapy; R40.4 Transient alteration of awareness
CPT/HCPCS: 36415; 36416; 36430; 70450; 71045; 72125; 76000; 80048; 80053; 81001; 83735; 84100; 84484; 85025; 85610; 86850; 86900; 86901; 90715; 93005; 93306; 93880; 94640; C1713; C1769; J0131; J0171; J0690; J1170; J2001; J2250; J2270; J2405; J2704; J2795; J3010; J7050; J7620; P9016; Q0162

== ENCOUNTER 2019-04-22 15:42 | Emergency (ER) | payer MEDICARE ==
[2019-04-22 16:33] LABS: #Lymphocytes 0.7 thou/uL (1.20-3.40); #Monocytes 0.4 thou/uL (0.11-0.59); #Neutrophils 14.9 thou/uL (1.40-6.50); %Eosinophils 0.1 % (0.0-10.0); %Lymphocytes 4.4 % (21.0-51.0); %Monocytes 2.4 % (0.0-10.0); %Neutrophils 93.1 % (42.0-75.0); Hemoglobin 9.6 g/dL (14.0-18.0); Mean Corpuscular HGB CONC 30.4 g/dL (32.0-36.0); Mean Corpuscular Hemoglobin 26.9 pg (27.0-31.0); Mean Corpuscular Volume 88.6 fL (78.0-98.0); Mean Platelet Volume 8.4 fL (7.4-10.4); Platelet Count 205 thou/uL (130-400); RBC Distribution Width 19.4 % (11.5-14.5); Red Blood Cell (RBC) Count 3.57 mill/uL (4.70-6.10)
[2019-04-22 16:54] LABS: ALT (SGPT) 36 U/L (8-55); AST (SGOT) 41 U/L (5-34); Alkaline Phosphatase 122 U/L (40-110); Anion Gap 15 mmol/L (10-20); BUN (Urea Nitrogen) 40 mg/dL (8.4-25.7); Bilirubin, Total 0.4 mg/dL (0.2-1.2); Calc. Creatinine Clearance 0 mL/min (70-130); Calcium 8.2 mg/dL (7.8-10.44); Carbon Dioxide 23 mmol/L (23-31); Chloride 103 mmol/L (98-107); Estimated GFR-MDRD 45; Globulin 3.3 g/dL (2.4-3.5); Glucose 144 mg/dL (83-110); Potassium 4.6 mmol/L (3.5-5.1); Protein, Total 6.3 g/dL (5.8-8.1); Sodium 136 mmol/L (136-145)
--- NOTE | 2019-04-22 17:32 | RAD ---
TWO VIEWS CHEST: Comparison: 05-20-09 History: Cough FINDINGS: Two views of the chest shows normal sized cardiomediastinal silhouette. The patient is status post CA BG. There is no evidence of consolidation, mass, or pleural effusion. Degenerative changes are seen i n the spine. IMPRESSION: No evidence of acute cardiopulmonary disease. POS: C
== END 2019-04-22 18:25 | disposition home or self-care (01) ==
LOC: ERS 15:42
DX: R05 Cough (principal); I25.10 Atherosclerotic heart disease of native coronary artery without angina pectoris; E78.5 Hyperlipidemia, unspecified; J44.9 Chronic obstructive pulmonary disease, unspecified; I10 Essential (primary) hypertension; Z87.891 Personal history of nicotine dependence
CPT/HCPCS: 36415; 71046; 80053; 85025

== ENCOUNTER 2019-05-13 14:29 | Observation (INO) | payer MEDICARE ==
[2019-05-13] MEDS ORDERED: Iopamidol-370 76% 500 ML 1 ML ONE (15:08)
[2019-05-13 15:19] LABS: #Basophils 0.1 thou/uL (0.0-0.2); #Eosinphils 0.3 thou/uL (0.0-0.7); #Lymphocytes 1.5 thou/uL (1.20-3.40); #Monocytes 0.5 thou/uL (0.11-0.59); #Neutrophils 3.6 thou/uL (1.40-6.50); %Basophils 0.9 % (0.0-1.0); %Eosinophils 5.6 % (0.0-10.0); %Lymphocytes 25.3 % (21.0-51.0); %Monocytes 8.4 % (0.0-10.0); %Neutrophils 59.7 % (42.0-75.0); Hemoglobin 11.9 g/dL (14.0-18.0); Mean Corpuscular Hemoglobin 27.9 pg (27.0-31.0); Mean Platelet Volume 8.1 fL (7.4-10.4); Platelet Count 250 thou/uL (130-400); RBC Distribution Width 19.1 % (11.5-14.5); Red Blood Cell (RBC) Count 4.25 mill/uL (4.70-6.10); White Blood Cell (WBC) Count 5.9 thou/uL (4.8-10.8)
--- NOTE | 2019-05-13 15:23 | RAD ---
PORTABLE CHEST 1 VIEW: Date: 05/13/2019 Time: 1512 hours HISTORY: Chest pain. FINDINGS/IMPRESSION: Comparison made with exam of 04/26/2019. Changes of median sternotomy again seen. Heart size is normal. Aorta is tortuous. Scattered plate of subsegmental atelectasis again seen. No lobar consolidation, pneumothoraces, or pleural effusions are identified. POS: TPC
[2019-05-13 15:33] LABS: ALT (SGPT) 28 U/L (8-55); AST (SGOT) 40 U/L (5-34); Albumin 3.3 g/dL (3.4-4.8); Alkaline Phosphatase 115 U/L (40-110); Anion Gap 15 mmol/L (10-20); BUN (Urea Nitrogen) 26 mg/dL (8.4-25.7); Bilirubin, Total 0.6 mg/dL (0.2-1.2); CK (CPK) 27 U/L (30-200); Calc. Creatinine Clearance 0 mL/min (70-130); Calcium 8.7 mg/dL (7.8-10.44); Carbon Dioxide 23 mmol/L (23-31); Chloride 107 mmol/L (98-107); Estimated GFR-MDRD 34; Globulin 3.2 g/dL (2.4-3.5); Glucose 154 mg/dL (83-110); Potassium 3.8 mmol/L (3.5-5.1); Protein, Total 6.5 g/dL (5.8-8.1); Sodium 141 mmol/L (136-145)
[2019-05-13 15:56] LABS: CKMB 3.2 ng/mL (0-6.6)
--- NOTE | 2019-05-13 16:17 | CT ---
CT ANGIOGRAM THORAX WITH IV CONTRAST AND 3-D RECONSTRUCTIONS CLINICAL INDICATION: Continued left-sided chest pain. COMPARISON: August 23, 2018 FINDINGS: Pulmonary arteries: There are tiny filling defects seen within a right lower lobe segmental and subse gmental pulmonary artery, but there has been significant interval improvement in filling defects within the bilateral upper and right lower lobe pulmonary arteries compared to prior study. Tiny fill ing defects within right lower lobe pulmonary arteries on today's examination may potentially represent residual pulmonary emboli. No new filling defects are appreciated. Aorta: Postsurgical changes related to CABG are again noted. Vascular calcifications are again seen i n the abdominal aorta as well as involving the coronary arteries. Lungs: The previously seen right pleural effusion has resolved. Bibasilar atelectasis is again presen t with consolidation the posterior left costophrenic angle also likely representing persistent atelectasis. Mediastinum: There is no evidence of lymphadenopathy. Thyroid gland: Normal CT appearance. Osseous structures: Degenerative changes are again seen in the spine with calcification anterior long itudinal ligament. Chest wall: No abnormality visualized. Upper abdomen: Few scattered subcentimeter hypodense lesions are again seen in each lobe of the liver . There is a calculus again seen within the gallbladder lumen. There is increased density material layering posteriorly which may represent additional tiny layering calculi versus sludge. A stable sma ll right adrenal nodule is again seen measuring 1.3 cm demonstrating attenuation coefficients most compatible with a adrenal adenoma. There were a few stable difficult to characterize hypodense lesion s in the visualized superior pole left kidney. IMPRESSION: 1. Tiny pulmonary emboli right lower lobe pulmonary arteries, but the overall burden of pulmonary emb eliane on the right has decreased when compared to prior study, and no new filling defects are seen in the pulmonary arteries to suggest additional pulmonary emboli. 2. Resolution of right pleural effusion. 3. Persistent patchy parenchymal densities each lung base greater on the left which may be related to persistent atelectasis. 4. Incidental findings in the upper abdomen.
--- NOTE | 2019-05-13 16:49 | PDOC.FPRHP ---
- History of Present Illness Chief Complaint: Chest Pain History of Present Illness: 83yo M w/ PMHx of CAD and 5 vessel CABG presented to the ED w/ complaint of chest pain. Pt stated that around 1400 today he developed left sided chest pain radiating down his left arm. He described the pain as a pressure. He states the chest pain has remained constant and his left arm pain has gradually improved. He denies any associated SOB but does not some intermittent nausea. Pt states that 40 years ago he presented with chest pain and ended up getting a 5 vessel CABG. He notes that today's pain is very similar to his pain he experienced at that time. Pt denies any recent illness aside from his chronic COPD symptoms. ED Course: ED: indeterminate trops. received asa and nitro. CTA shows interval improvement of PE. - Allergies/Adverse Reactions Allergies Allergy/AdvReac Type Severity Reaction Status Date / Time No Known Allergies Allergy Verified 12/12/18 15:45 - Home Medications Medication Instructions Recorded Confirmed Type Albuterol Sulfate [Ventolin Hfa] 1 puff INH BID 12/12/18 03/20/19 History Allopurinol 100 mg PO DAILY 12/12/18 03/20/19 History Amiodarone [Cordarone] 1 tab PO BID 12/12/18 03/20/19 History Atorvastatin Calcium [Lipitor] 20 mg PO QPM 12/12/18 03/20/19 History Losartan Potassium 1 tab PO DAILY 12/12/18 03/20/19 History Metoprolol Tartrate [Lopressor] 1 tab PO BID 12/12/18 03/20/19 History Nitroglycerin [Nitroglycerin Patch] 0.4 mg TD DAILY 12/12/18 03/20/19 History Omeprazole 1 cap PO DAILY 12/12/18 03/20/19 History Tamsulosin HCl 1 cap PO DAILY 12/12/18 03/20/19 History traMADol HCl [Tramadol HCl] 50 mg PO Q6H PRN 12/12/18 03/20/19 History Furosemide [Lasix] 20 mg PO DAILY #30 tab 12/14/18 03/20/19 Rx ALPRAZolam [Alprazolam] 1 tab PO TID PRN 03/20/19 03/20/19 History Temazepam 1 cap PO QPM PRN 03/20/19 03/20/19 History Acetaminophen W/ Codeine 1 tab PO Q6H tab 03/27/19 Rx [Acetaminophen/Codeine #3] Acetaminophen W/ Codeine 1 tab PO Q6H PRN tab 03/27/19 Rx [Acetaminophen/Codeine #3] Acetaminophen [Tylenol Regular 325 mg PO Q6HR tab 03/27/19 Rx Strength] Ascorbic Acid [Vitamin C] 500 mg PO BID-WM tab 03/27/19 Rx Aspirin [Ecotrin Low Strength] 81 mg PO BID tab 03/27/19 Rx Bisacodyl [Dulcolax] 10 mg [place] DAILY supp 03/27/19 Rx Cyclobenzaprine [Flexeril] 5 mg PO TIDPRN PRN tab 03/27/19 Rx Ferrous Sulfate [Feosol] 325 mg PO BID-WM tab 03/27/19 Rx Gabapentin [Neurontin] 100 mg PO TID cap 03/27/19 Rx Glucagon 1 mg IM PRN PRN vial 03/27/19 Rx Ipratropium/Albuterol Sulfate 3 ml NEB Q4H PRN neb 03/27/19 Rx [DuoNeb] Mometasone/Formoterol 200/5 1 puff INH BID-RT aer 03/27/19 Rx [Dulera 200 Mcg/5 Mcg Inhaler] Ondansetron [Zofran ODT] 4 mg PO Q6H PRN tab 03/27/19 Rx Polyethylene Glycol 3350 [Miralax] 17 gm PO DAILY pk 03/27/19 Rx Sennosides/Docusate Sodium 2 tab PO BID tab 03/27/19 Rx [Senokot S] hydrALAZINE [Apresoline] 10 mg SLOW IVP Q4H PRN vial 03/27/19 Rx Comments: Above medication reconciliation does not necessarily reflect patient's current medication regimen - History PMHx: CAD, COPD, HTN, HLD, PE, DVT, Afib, carotid stenosis PSHx: CABG, left leg ORIF, partial gastrectomy for ulcer, hemorrhoidectomy FHx: Paternal - CAD Social: Former smoker - quit 2 years ago, denies any alcohol use or hx of drug use - Review of Systems General: denies: fever/chills, weight/appetite/sleep changes Eyes: denies: vision changes, other ENT: denies: nasal congestion, rhinorrhea Respiratory: reports: cough (chronic). denies: shortness of breath Cardiovascular: reports: chest pain. denies: palpitation, edema Gastrointestinal: reports: nausea. denies: vomiting, diarrhea, constipation, abdominal pain Genitourinary: denies: incontinence, dysuria Skin: denies: rashes, lesions Musculoskeletal: reports: pain (left arm). denies: swelling Neurological: denies: numbness, weakness - Vital signs BP: 123/72, MAP: 89, Pulse: 83, Resp: 16, Pain: 6, O2 sat: 100 on (Room Air) - Physical Exam Constitutional: NAD, awake, alert and oriented, well developed HEENT: EOMI, grossly normal vision, grossly normal hearing, MMM Neck: supple, FROM, trachea midline Chest: no-tender to palpation Heart: RRR, normal S1/S2, no murmurs/rubs/gallops, pulses present, no edema Lungs: CTAB, no respiratory distress, good air movement, no rales/rhonchi, no wheezing Abdomen: soft, non-tender, bowel sounds present, no masses/distention Musculoskeletal: other (RLE TTP, pulses present, Limited mobility 2/2 pain) -Musculoskeletal: 5/5 strength BL UE Neurological: no focal deficit, normal sensation Skin: no rash/lesions Heme/Lymphatic: no unusual bruising or bleeding Psychiatric: normal mood and affect, good judgment and insight FMR H&P: Results - Labs Result Diagrams: 05/13/19 15:05/13/19 15:01 Lab results: WBC 5.9 thou/uL (4.8-10.8) 05/13/19 15: Hgb 11.9 g/dL (14.0-18.0) L 05/13/19 15:01 Hct 38.2 % (42.0-52.0) L 05/13/19 15:01 MCV 90.0 fL (78.0-98.0) 05/13/19 15:01 Plt Count 250 thou/uL (130-400) 05/13/19 15:01 Neutrophils % 59.7 % (42.0-75.0) 05/13/19 15: Sodium 141 mmol/L (136-145) 05/13/19 15:01 Potassium 3.8 mmol/L (3.5-5.1) 05/13/19 15:01 Chloride 107 mmol/L (98-107) 05/13/19 15: Carbon Dioxide 23 mmol/L (23-31) 05/13/19 15: BUN 26 mg/dL (8.4-25.7) H 05/13/19 15:01 Creatinine 1.89 mg/dL (0.7-1.3) H 05/13/19 15: Glucose 154 mg/dL (83-110) H 05/13/19 15: Calcium 8.7 mg/dL (7.8-10.44) 05/13/19 15: Total Bilirubin 0.6 mg/dL (0.2-1.2) 05/13/19 15: AST 40 U/L (5-34) H 05/13/19 15: ALT 28 U/L (8-55) 05/13/19 15: Alkaline Phosphatase 115 U/L (40-110) H 05/13/19 15: Creatine Kinase 27 U/L (30-200) L 05/13/19 15: CK-MB (CK-2) 3.2 ng/mL (0-6.6) 05/13/19 15: B-Natriuretic Peptide 156.5 pg/mL (0-100) H 05/13/19 15: Serum Total Protein 6.5 g/dL (5.8-8.1) 05/13/19 15: Albumin 3.3 g/dL (3.4-4.8) L 05/13/19 15:01 - EKG Interpretation EKG: EK lead EKG shows, sinus tachycardia, Rate (beats per minute): 118, with no ectopics, Conduction with, complete right bundle branch block, bifascicular block, ST segments normal, T waves normal, [place] normal. - Radiology Interpretation CT scan - chest Status: report reviewed by me (1. Tiny pulmonary emboli right lower lobe pulmonary arteries, but the overall burden of pulmonary emb eliane on the right has decreased when compared to prior study, and no new filling defects are seen in the pulmonary arteries to suggest additional pulmonary emboli. 2. Resolution of right pleural effusion. 3. Persistent patchy parenchymal densities each lung base greater on the left which may be related to persistent atelectasis. 4. Incidental findings in the upper abdomen.) Chest x-ray Status: report reviewed by me (Changes of median sternotomy again seen. Heart size is normal. Aorta is tortuous. Scattered plate of subsegmental atelectasis again seen. No lobar consolidation, pneumothoraces, or pleural effusions are identified.) FMR H&P: A/P - Problem List (1) Hx of coronary artery bypass graft Current Visit: Yes Status: Acute (2) Chest pain Current Visit: No Status: Acute Code(s): R07.9 - CHEST PAIN, UNSPECIFIED (3) CAD (coronary artery disease) Current Visit: No Status: Chronic Code(s): I25.10 - ATHSCL HEART DISEASE OF [place] CORONARY ARTERY W/O ANG PCTRS Qualifiers: Coronary Disease-Associated Artery/Lesion type: bypass graft (4) COPD (chronic obstructive pulmonary disease) Current Visit: No Status: Chronic (5) Elevated troponin Current Visit: Yes Status: Acute Code(s): R79.89 - OTHER SPECIFIED ABNORMAL FINDINGS OF BLOOD CHEMISTRY (6) CHF (congestive heart failure) Current Visit: Yes Status: Acute Code(s): I50.9 - HEART FAILURE, UNSPECIFIED (7) Atrial fibrillation Current Visit: Yes Status: Acute Code(s): I48.91 - UNSPECIFIED ATRIAL FIBRILLATION - Plan Typical Chest Pain - Known CAD and Hx of 5 vessel CABG -Echo 03/2019: EF 40-45%, inferior hypokinesis, probable dystolic dysfunction -Heart score 7-8 -Trop: 0.058, continue trend -Will attempt to obtain [facility] records of reported normal stress test in last year -Plan to consult cardiology in am following trop trend -NPO at midnight Hx DVT and PE -CTA shows interval improvement -Continue Eliquis Afib -Continue Eliquis Carotid Stenosis -Outpt follow up with CV surg Chronic HTN, COPD, HLD -Does not know his medications, will require reconciliation prior to resuming home rx Recent extremity fracture, decubitus ulcers -PT/OT/Wound care consulted IVF: LR @ 100 DVT: Eliquis Code: Full Diet: HH - NPO at midnight Dispo: Admit to tele obs. ELOS < 48 hr PCP: Dr. Tavares FMR H&P: Upper Level - Plan Date/Time: 05/13/19 7668 I, Loki Gutierrez MD, have evaluated this patient and agree with findings/ plan as outlined by international controller resident. Pertinent changes/additions are listed here. 83 yo male presents for evaluation of chest pain beginning at 2 PM today. Patient has known CAD with 5v CABG previously as well as one stent placement. 1. Chest Pain - Trend troponins - Consider Cardiology consult in AM - Apparent negative stress test in last year at [facility] - Will request records in AM. - Nitro as needed 2. Hx of CABG - Continue home regimen - Known CAD, trend troponins and consider Cardiology consultation as above 3. Hx of DVT/PE - Continue Eliquis - Improved from prior studies All chronic conditions reviewed and medications to be restarted as appropriate. PCP: JUNIE Tavares CODE STATUS: FULL CODE Disposition: Stable, will admit to Telemetry for further evaluation and treatment.
[2019-05-13] MEDS ORDERED: Fentanyl 100 MCG/2 ML VIAL ONE (17:38)
[2019-05-13 18:28] LABS: Troponin I 0.035 ng/mL (< 0.028)
[2019-05-13] MEDS ORDERED: Acetaminophen 325 MG TAB PO PRN (19:13)
[2019-05-13] MEDS ORDERED: Nitroglycerin 0.4 MG TAB (25 Tab Bottle) PO PRN (19:13)
[2019-05-13 19:52] VITALS: BMI 26.6
[2019-05-13] MEDS: Lactated Ringer's 1,000 ML IV SCH (20:12)
[2019-05-13 21:48] LABS: Troponin I 0.044 ng/mL (< 0.028)
[2019-05-13] MEDS ORDERED: Morphine 2 MG/ML SYRINGE SLOW IVP SCH (23:59)
[2019-05-14 01:05] LABS: Troponin I 0.052 ng/mL (< 0.028)
[2019-05-14 03:37] LABS: Troponin I 0.042 ng/mL (< 0.028)
[2019-05-14 03:40] LABS: Anion Gap 12 mmol/L (10-20); BUN (Urea Nitrogen) 24 mg/dL (8.4-25.7); Calc. Creatinine Clearance 39 mL/min (70-130); Calcium 8.3 mg/dL (7.8-10.44); Carbon Dioxide 26 mmol/L (23-31); Chloride 107 mmol/L (98-107); Estimated GFR-MDRD 43; Glucose 98 mg/dL (83-110); Potassium 3.5 mmol/L (3.5-5.1); Sodium 141 mmol/L (136-145)
--- NOTE | 2019-05-14 06:12 | PDOC.FM ---
- Subjective Subjective: Patient had an episode of chest pain overnight and was given nitro & morphine w / some relief. EKG was unchanged from admission and troponin downtrended. Patient denies any chest pain on exam this AM. Also denies any SOB, palpitations , headache or nausea. Does have pain in his right heel where he has a pressure ulcer. - Objective Vital Signs & Weight: Vital Signs (12 hours) Temp Pulse Resp BP Pulse Ox 05/14/19 03:47 97.2 F L 76 18 161/67 H 99 Weight Weight 77.111 kg Result Diagrams: 05/13/19 15:01 05/14/19 03:05 Phys Exam - Physical Examination Constitutional: NAD HEENT: moist MMs, sclera anicteric Neck: supple, full ROM Respiratory: no wheezing, no rales, no rhonchi, clear to auscultation bilateral Cardiovascular: no significant murmur Musculoskeletal: no edema, pulses present Neurological: non-focal, moves all 4 limbs Psychiatric: normal affect, A&O x 3 Skin: no rash, normal turgor Deviation from normal: ~2x2.5cm stage 2 pressure ulcer noted on R heel w/ mild purulent drainage -: & large eschar but trace surrounding erythema Dx/Plan (1) Atrial fibrillation Code(s): I48.91 - UNSPECIFIED ATRIAL FIBRILLATION Status: Chronic (2) Elevated troponin Code(s): R79.89 - OTHER SPECIFIED ABNORMAL FINDINGS OF BLOOD CHEMISTRY Status : Acute (3) Hx of coronary artery bypass graft Status: Acute (4) Chest pain Code(s): R07.9 - CHEST PAIN, UNSPECIFIED Status: Acute (5) Creatinine elevation Code(s): R79.89 - OTHER SPECIFIED ABNORMAL FINDINGS OF BLOOD CHEMISTRY Status : Chronic (6) CAD (coronary artery disease) Code(s): I25.10 - ATHSCL HEART DISEASE OF [place] CORONARY ARTERY W/O ANG PCTRS Status: Chronic Qualifiers: Coronary Disease-Associated Artery/Lesion type: bypass graft (7) COPD (chronic obstructive pulmonary disease) Status: Chronic (8) CKD (chronic kidney disease), stage III Code(s): N18.3 - CHRONIC KIDNEY DISEASE, STAGE 3 (MODERATE) Status: Chronic - Plan Plan: Typical Chest Pain - Known CAD and Hx of 5 vessel CABG -Heart score 7-8 -Trop: 0.058 but down to 0.042 eventually. -Will attempt to obtain [facility] records of reported normal stress test done last year -Will consult cardiology today. Hx DVT and PE -CTA on admission showed interval improvement -Continue Eliquis HFpEF: - Echo from 03/2019: EF 40-45%, inferior hypokinesis, probable diastolic dysfunction - Continue ARB & Bb therapy. Afib -Rate controlled. Continue home Eliquis, amio, & metoprolol BPH - Resume home tamsulosin COPD - Aware, not in acute exacerbation, will resume home maintenance & PRN meds. CKD III - Cr 1.56 w/ eGFR of 43 on admission. Per chart review within patient's baseline range. Will renally dose all meds PRN. Normocytic anemia - Likely 2/2 CKD but will resume home iron & continue to monitor. Carotid Stenosis -Outpt follow up with CV surg -Continue ASA & statin therapy Chronic HTN, COPD, HLD -Does not know his medications, will require reconciliation prior to resuming home rx Recent extremity fracture, decubitus ulcers -PT/OT/Wound care consulted. -Will start topical Abx for heel ulcer. IVF: SL DVT: Eliquis GI: Pantoprazole Code: Full Diet: NPO pending cards evaluation Dispo: Consult cards today for further recs. Anticipate likely d/c today or tomorrow pending cards evaluation. PCP: Dr. Tavares Addjameum - Attending - Attending Attestation Date/Time: 05/14/19 0113 I personally evaluated the patient and discussed the management with Dr. Taylor. I agree with the History, Examination, Assessment and Plan documented above with any addition or exceptions noted below.
[2019-05-14] MEDS ORDERED: Ondansetron ODT 4 MG TAB PO PRN (06:15)
[2019-05-14] MEDS: Lactated Ringer's 1,000 ML IV SCH (06:32)
[2019-05-14] MEDS: Metoprolol Tartrate 100 MG TAB PO SCH ×2 (07:54→21:30)
[2019-05-14] MEDS: Tamsulosin HCl 0.4 MG CAP PO SCH (07:54)
[2019-05-14] MEDS: Amiodarone 200 MG TAB PO SCH ×2 (07:54→21:29)
[2019-05-14] MEDS: Allopurinol 100 MG TAB PO SCH (07:54)
[2019-05-14] MEDS ORDERED: Ferrous Sulfate 325 MG TAB PO SCH (08:00)
[2019-05-14] MEDS: PROVENTIL INHALER 6.7 G (200 INHALATIONS) INH SCH ×2 (08:16→18:46)
[2019-05-14] MEDS: Mometasone/Formoterol 120 PUFF INHALER INH SCH ×2 (08:17→18:46)
[2019-05-14] MEDS ORDERED: traMADol HCl 50 MG TAB PO PRN ×2 (08:46→13:53)
[2019-05-14] MEDS: Apixaban 5 MG TAB PO SCH ×2 (08:58→20:40)
[2019-05-14] MEDS ORDERED: Polyethylene Glycol 3350 17 GM Packet PO SCH (09:00)
[2019-05-14] MEDS ORDERED: Senokot S 8.6-50 MG TAB PO SCH (09:00)
[2019-05-14] MEDS ORDERED: Losartan 25 MG TAB PO SCH (09:00)
[2019-05-14] MEDS ORDERED: Bacitracin Zinc Ointment 30 gm TUBE TOP SCH (09:00)
[2019-05-14] MEDS ORDERED: Aspirin 325 mg Enteric Coated Tablet PO SCH (09:00)
[2019-05-14] MEDS ORDERED: Senokot S 8.6-50 MG TAB PO PRN (13:51)
[2019-05-14] MEDS ORDERED: Polyethylene Glycol 3350 17 GM Packet PO PRN (13:51)
[2019-05-14] MEDS ORDERED: Acetaminophen 500 MG TAB PO PRN (13:51)
--- NOTE | 2019-05-14 14:50 | CON ---
DATE OF CONSULTATION: HISTORY OF PRESENT ILLNESS: The patient is an 83-year-old gentleman, who presented with chest discomfort. The patient has a long history of coronary artery disease. He states he had coronary artery bypass graft surgery many years ago. He also reports that he had been in [place] previously and underwent a cardiac catheterization, had a stent placed into one of his bypass grafts. The patient also was in [place] and presented with unstable angina. He underwent a cardiac catheterization and no stent was placed at that time. The patient also was followed primarily by Dr. Field. He underwent a stress test apparently a year ago, which was apparently unremarkable. The patient was admitted with chest pain a few months ago. He was found also to have significant cerebrovascular disease. The patient states that he has chronic angina, usually relieved by one nitroglycerin tablet. The patient presented with left-sided chest pain, which radiates down his left arm. The patient came into the emergency room. His chest pain eventually resolved when he received morphine. The patient did have another episode of chest discomfort last night. The patient states he has not been taking his aspirin. PAST MEDICAL HISTORY: 1. Coronary artery disease. 2. Hypertension. 3. Renal insufficiency. 4. DVT. 5. History of PE. 6. COPD. 7. Atrial fibrillation. PAST SURGICAL HISTORY: He has had coronary artery bypass graft surgery and hemorrhoidectomy. SOCIAL HISTORY: Former smoker. ALLERGIES: NO KNOWN DRUG ALLERGIES. MEDICATIONS: See nursing list. REVIEW OF SYSTEMS: Ten-point system otherwise unremarkable. No history of easy bruising or bleeding. PHYSICAL EXAMINATION: GENERAL: Obese gentleman, in no acute distress. VITAL SIGNS: With a blood pressure 139/63. NECK: No jugular venous distention. LUNGS: Clear to auscultation. HEART: Regular rate and rhythm. Normal S1 and S2. No murmurs. ABDOMEN: Nondistended. EXTREMITIES: Showed trace edema. VASCULAR: Radial pulses 2+. LABORATORY RESULTS: Sodium 141, potassium 3.5, chloride 107, bicarbonate 26, BUN 24, and creatinine 1.56. Troponin 0.042. White blood cell count 5.9, hemoglobin 11.9, hematocrit 38.2, and platelets are 250. EKG reveals normal sinus rhythm, right bundle branch first-degree AV block, and left anterior fascicular block. IMPRESSION AND PLAN: 1. Unstable angina. 2. History of coronary artery bypass surgery x5. 3. History of percutaneous transluminal coronary angioplasty and stent placement. 4. Cerebrovascular disease. 5. Renal insufficiency. 6. History of deep venous thrombosis. 7. History of atrial fibrillation. 8. Chronic obstructive pulmonary disease. This gentleman presents with unstable angina. The patient has not been on aspirin. We will restart this medication from a cardiac standpoint. Would recommend stress testing to evaluate the extent of his repeat stressing to see the extent of his coronary artery disease. From a cardiac standpoint, the patient declines to undergo this procedure. We will restart aspirin and adjust his antianginal medication. We will obtain records from Dr. Field and follow this patient with you through his hospitalization. Job ID: [id number] MTDD
[2019-05-14] MEDS: Amoxicillin/Potassium Clav 875 MG TAB PO SCH (20:39)
[2019-05-14] MEDS: Sulfameth/Trimethoprim DS 800-160mg TAB PO SCH (20:40)
[2019-05-14] MEDS ORDERED: Atorvastatin Calcium 20 MG TAB PO SCH (21:00)
[2019-05-15] MEDS: PROVENTIL INHALER 6.7 G (200 INHALATIONS) INH SCH (07:28)
[2019-05-15] MEDS: Mometasone/Formoterol 120 PUFF INHALER INH SCH (07:30)
[2019-05-15] MEDS: Allopurinol 100 MG TAB PO SCH (08:26)
[2019-05-15] MEDS: Tamsulosin HCl 0.4 MG CAP PO SCH (08:28)
[2019-05-15] MEDS: Amiodarone 200 MG TAB PO SCH (08:29)
[2019-05-15] MEDS: Apixaban 5 MG TAB PO SCH (08:29)
[2019-05-15] MEDS: Amoxicillin/Potassium Clav 875 MG TAB PO SCH (08:29)
[2019-05-15] MEDS: Sulfameth/Trimethoprim DS 800-160mg TAB PO SCH (08:29)
[2019-05-15] MEDS ORDERED: Aspirin 81 mg Enteric Coated Tablet PO SCH (09:00)
[2019-05-15] MEDS ORDERED: Losartan 25 MG TAB PO SCH ×2 (09:00)
[2019-05-15] MEDS ORDERED: Metoprolol Tartrate 50 MG TAB PO SCH (09:00)
--- NOTE | 2019-05-15 10:07 | PDOC.FM ---
Addendum entered and electronically signed by Margarita Taylor MD 05/15/19 10:31 : Decubitus ulcer of R heel with surrounding cellulitis: - WC on board. - Continue PO bactrim & augmentin for 14 days course. Original Note: - Subjective Subjective: NAEO. No recurring CP yesterday or overnight. Feels well this AM. Mild pain in right heel but no SOB or lightheadedness. - Objective MAR Reviewed: Yes Vital Signs & Weight: Vital Signs (12 hours) Temp Pulse Resp BP Pulse Ox 05/15/19 07:39 97.5 F L 68 20 102/50 L 95 05/15/19 07:31 95 05/15/19 07:30 62 16 94 L 05/15/19 07:28 62 16 94 L 05/15/19 03:25 97.2 F L 62 18 151/61 H 96 Weight Admit Weight 77.111 kg Weight 77.111 kg I&O: 05/14/19 05/15/19 05/16/19 06:59 06:59 06:59 Intake Total 4080 Output Total 2100 Balance 1980 Result Diagrams: 05/13/19 15:01 05/14/19 03:05 Phys Exam - Physical Examination Constitutional: NAD HEENT: moist MMs Neck: supple Respiratory: no wheezing, no rales, no rhonchi, clear to auscultation bilateral Cardiovascular: RRR, no significant murmur Musculoskeletal: no edema Neurological: non-focal, moves all 4 limbs Psychiatric: normal affect, A&O x 3 Skin: no rash Deviation from normal: R heel ulcer wrapped w/ clean & dry dressing Dx/Plan (1) Atrial fibrillation Code(s): I48.91 - UNSPECIFIED ATRIAL FIBRILLATION Status: Chronic (2) Elevated troponin Code(s): R79.89 - OTHER SPECIFIED ABNORMAL FINDINGS OF BLOOD CHEMISTRY Status : Acute (3) Hx of coronary artery bypass graft Status: Acute (4) Chest pain Code(s): R07.9 - CHEST PAIN, UNSPECIFIED Status: Acute (5) Creatinine elevation Code(s): R79.89 - OTHER SPECIFIED ABNORMAL FINDINGS OF BLOOD CHEMISTRY Status : Chronic (6) CAD (coronary artery disease) Code(s): I25.10 - ATHSCL HEART DISEASE OF [place] CORONARY ARTERY W/O ANG PCTRS Status: Chronic Qualifiers: Coronary Disease-Associated Artery/Lesion type: bypass graft (7) COPD (chronic obstructive pulmonary disease) Status: Chronic (8) CKD (chronic kidney disease), stage III Code(s): N18.3 - CHRONIC KIDNEY DISEASE, STAGE 3 (MODERATE) Status: Chronic (9) Pressure ulcer of right heel, stage 2 Code(s): L89.612 - PRESSURE ULCER OF RIGHT HEEL, STAGE 2 Status: Acute (10) Cellulitis of right heel Code(s): L03.115 - CELLULITIS OF RIGHT LOWER LIMB Status: Acute - Plan Plan: Typical Chest Pain - Known CAD and Hx of 5 vessel CABG -Heart score 7-8 on admission -Trop: 0.058 but down to 0.042 eventually & no more CP since Monday evening. 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 -Consulted cardiology yesterday. Will await their recs but suspect patient will be stable for d/c home with close f/u with his Ecologist, Dr. Arora, as an outpatient. Hx DVT and PE -CTA on admission showed interval improvement -Continue Eliquis HFpEF: - Echo from 03/2019: EF 40-45%, inferior hypokinesis, probable diastolic dysfunction - Continue ARB & Bb therapy. Afib -Rate controlled. Continue home Eliquis, amio, & metoprolol BPH - Continue home tamsulosin COPD - Aware, not in acute exacerbation, will resume home maintenance & PRN meds. CKD III - Cr 1.56 w/ eGFR of 43 on admission. Per chart review within patient's baseline range. Will renally dose all meds PRN. Normocytic anemia - Likely 2/2 CKD but will resume home iron & continue to monitor. Carotid Stenosis -Outpt follow up with CV surg -Continue ASA & statin therapy Chronic HTN - BP & HR have been low overnight. Will decrease metoprolol to 50mg BID. COPD - Continue home meds HLD -Continue home meds Recent extremity fracture s/p repair - PT/OT on board. Patient reportedly was supposed to f/u at fracture clinic today. - Will call & see if any imaging needs to be done & try to get that done before discharge per ortho's recs. Decubitus ulcers -PT/OT/Wound care consulted. -Will continue PO bactrim & augmentin for another 13 days to complete a 14 day course. Physical Deconditioning - CM consulted to assist patient with getting PT through services. IVF: SL DVT: Eliquis GI: Pantoprazole Code: Full Diet: HH, Low Na Dispo: Anticipate likely d/c today pending cards recs. PCP: Dr. Tavares Addendum - Attending - Attending Attestation Date/Time: 05/16/19 3943 I personally evaluated the patient and discussed the management with Dr. Dr. Taylor yesterday morning. I agree with the History, Examination, Assessment and Plan documented above with any addition or exceptions noted below.
--- NOTE | 2019-05-15 12:05 | RAD ---
Right ankle 3 views: HISTORY: Fractures of the tibia and fibula COMPARISON: 04/24/2019 FINDINGS: Postop changes of internal fixation devices of the distal tibia and fibula are again seen. The ankle mortise is maintained. Metallic hardware is intact. The fracture of the distal shaft of the tibia is again seen with minimal adjacent periosteal reaction .
--- NOTE | 2019-05-15 12:09 | RAD ---
THREE VIEWS RIGHT FOOT: HISTORY: Stage II pressure ulcer. Evaluate for osteomyelitis of the calcaneus. COMPARISON: None. FINDINGS: Overlying bandage material the level of the calcaneal soft tissue. No erosive or destructive changes . Hypertrophic changes due to enthesopathic changes at the Achilles tendon insertion site are noted. There is diffuse bony demineralization. No erosive or destructive changes appreciated. Lisfran c alignment is maintained. Internal fixation hardware in the distal tibia and fibula is noted. IMPRESSION: No radiographic evidence of osteomyelitis with regards the calcaneus. Transcribed Date/Time: 05/15/2019 1:07 PM
--- NOTE | 2019-05-15 12:11 | RAD ---
RIGHT LEG 2 VIEWS: HISTORY: Right open tibia-fibula fracture, status post repair COMPARISON: 04/24/2019. FINDINGS: Intramedullary ayo stabilizing the distal tibial fracture is again seen. Nondisplaced fracture of the proximal fibular shaft is again seen. There is minimal periosteal reaction adjacent to the oblique distal tibial fracture. Plate and screws through the distal fibula are unchanged.
[2019-05-15 15:58] VITALS: BP 138/65; TEMP 98
--- NOTE | 2019-05-16 13:49 | DIS ---
DATE OF ADMISSION: 05/13/2019 DATE OF DISCHARGE: 05/15/2019 RESIDENT: Margarita Taylor MD ADMITTING ATTENDING: Anastasia Longoria MD DISCHARGE ATTENDING: Luis Eduardo Khan MD CONSULTS: Cardiology, Dr. Roddy Wang. PROCEDURES: 1. Chest x-ray on 05/13/2019, which was compared to an exam on 04/26/2019 and showed changes of median sternotomy, again seen with a normal heart size, a torturous aorta and scattered plate of subsegmental atelectasis again seen. 2. Chest thorax CTA on 05/13/2019, which was notable for tiny pulmonary emboli in the right lower lobe pulmonary arteries, but the overall burden of pulmonary emboli on the right has decreased compared to a prior study and no new filling defects are seen in the pulmonary arteries to suggest additional emboli. Resolution of right pleural effusion and persistent patchy parenchymal densities in each lung base, greater on the left, which may be related to persistent atelectasis. In addition, a small stable right adrenal nodule measuring approximately 1.3 cm is again noted as well as a few stable difficult to characterize hypodense lesions seen in the superior pole of the left kidney. 3. Right tib-fib x-ray on 05/15/2019, which showed intramedullary ayo stabilizing the distal tibial fracture is again seen. Nondisplaced fracture of the proximal fibular shaft is again seen. There is minimal periosteal reaction adjacent to the oblique distal tibial fracture. Plate and screws through the distal fibula are unchanged. 4. Right foot x-ray on 05/15/2019 showing no radiographic evidence of osteomyelitis with regard to the calcaneus, but diffuse bony demineralization as well as hypertrophic changes due to enthesopathic changes at the Achilles tendon insertion sites are noted. 5. Right ankle x-ray on 05/15/2019, showing postop changes of internal fixation devices of the distal tibia and fibula and the ankle mortise is maintained. Metallic hardware intact. The fracture of the distal shaft of the tibia is again seen with minimal adjacent periosteal reaction. PRIMARY DIAGNOSES: 1. Atypical chest pain, most likely secondary to unstable angina from known coronary artery disease. 2. Right extremity decubitus ulcers with associated cellulitis. SECONDARY DIAGNOSES: 1. History of deep venous thrombosis and pulmonary embolism, on daily oral anticoagulation. 2. Heart failure with preserved ejection fraction. 3. Chronic atrial fibrillation. 4. Benign prostatic hyperplasia. 5. Chronic obstructive pulmonary disease. 6. Chronic kidney disease, stage 3. 7. Normocytic anemia of chronic disease. 8. Carotid stenosis/peripheral vascular disease. 9. Hypertension. 10. Hyperlipidemia. 11. Right lower extremity fracture, status post repair. DISCHARGE MEDICATIONS: 1. Tamsulosin 0.4 mg p.o. daily. 2. Amiodarone 200 mg p.o. daily. 3. Allopurinol 100 mg p.o. daily. 4. Dulera 200/5 mcg one puff inhaled b.i.d. 5. 1 g of Tylenol p.o. q.8 hours p.r.n. 6. Proventil 1 puff inhaled b.i.d. 7. Augmentin 875 mg p.o. q.12 hours for 13 days. 8. Apixaban 5 mg p.o. b.i.d. 9. Cozaar 25 mg p.o. daily. 10. Metoprolol tartrate 50 mg p.o. b.i.d. 11. Nitrostat 0.4 mg p.o. q.5 minutes p.r.n. #5 tabs. 12. Senokot-S 2 tabs p.o. b.i.d. p.r.n. 13. Bactrim DS one tab p.o. b.i.d. for 13 days. DISCONTINUED MEDICATIONS: 1. Tramadol 50 mg p.o. q.8 hours. 2. Losartan potassium 25 mg p.o. b.i.d. 3. Omeprazole 20 mg one capsule p.o. daily. 4. Furosemide 20 mg p.o. daily. 5. Temazepam 1 capsule p.o. q.p.m. 6. Alprazolam 1 tab p.o. q.4 hours p.r.n. 7. Acetaminophen 325 mg capsules two tabs p.o. q.4 hours p.r.n. 8. [place] 7.5/325 two tabs p.o. q.4 hours p.r.n. HOSPITAL COURSE: The patient is a 83YO male with a PMH significant for suspected dementia, HTN, and CAD s/p 5V CABG who presented to the ED with a CC of typical left-sided chest pain that began around ~1400 on the date of presentation. States it improved slightly over time at home but never completely resolved and felt very similar to pain he felt before his previous MD so he came to the ED for further evaluation. On presentation his VS were WNLs with the exception of mild tachycardia with a HR just over 100. His EKG showed sinus tachycardia, with a rate of 118 and a complete right bundle branch block, but no ST segments or T wave abnormalities. His initial troponin was mildly elevated at 0.035 & continued to uptrend to 0.052 but eventually downtrended to 0.042. Of note, the patient reported having a normal stress test with his administration professional , Dr. Field sometime last year but; given his history & risk factors, the patient was admitted to telemetry for close monitoring overnight and was seen by Cardiology, Dr. Roddy Wang, the following morning. The patient refused inpatient stress testing & was therefore cleared for discharge by cardiology as his chest pain had resolved. The patient was instructed to follow-up with his PCP, Dr. Tavares and his administration professional, Dr. Field as noted below. and was noted to be an unreliable historian so records were requested but given his history Regarding the patient's decubitus ulcers with surrounding cellulitis, the patient's history was also remarkable for a recent hospital stay for an open right-sided tib/fib fracture requiring medullary nailing & fixation to repair after which he developed a DVT & PE requiring chronic anticoagulation with Eliquis. He was admitted to inpatient rehab for a short stay for continued rehab and PT/OT but had since been recovering at home. However, he had since developed a pressure ulcer on his right heel that was noted to have surrounding erythema and purulent discharge on presentation. A foot x-ray was obtained to r/ o osteomyelitis which was ne DISPOSITION: Stable. DISCHARGE INSTRUCTIONS: 1. Location: Home with home health for wound care, physical therapy, and occupational therapy. 2. Diet: Heart healthy, low sodium and renal diet. 3. Activity: As tolerated with weightbearing as tolerated in right lower extremity while in walking boots. 4. Followup: The patient was instructed to follow up with the following providers: a. Follow up with Dr. Pancho Bains within 2 to 3 weeks of discharge for continued monitoring following his right lower extremity fracture. b. Follow up with primary care provider, Dr. Brandan Tavares within 1 week of discharge. c. Follow up with Dr. Garrett Mirza as soon as possible following discharge for noted carotid stenosis identified on prior hospitalization. d. Follow up with Dr. Julius Field within 2 to 3 weeks of discharge. e. Follow up with Dr. Ruby Tan within 3 days of discharge for monitoring of right lower extremity ulcers and continued wound care. Job ID: [id number] [facility]
--- NOTE | 2019-05-18 14:23 | EKG ---
Test Reason : Blood Pressure : / mmHG Vent. Rate : 118 BPM Atrial Rate : 097 BPM P-R Int : 000 ms QRS Dur : 136 ms QT Int : 386 ms P-R-T Axes : 000 -81 122 degrees QTc Int : 541 ms Sinus rhythm Right bundle branch block Left anterior fascicular block Bifascicular block Abnormal ECG Severe Baseline Artifact Present Confirmed by ELI FRIAS DO ([id number]), supervising editor trailer BILL WOOD ([id number]) on 05/18/2019 2:23:33 PM Referred By: Confirmed By:ELI FRIAS DO
--- NOTE | 2019-05-21 09:29 | EKG ---
Test Reason : STAT Blood Pressure : / mmHG Vent. Rate : 074 BPM Atrial Rate : 074 BPM P-R Int : 248 ms QRS Dur : 142 ms QT Int : 478 ms P-R-T Axes : 085 -70 220 degrees QTc Int : 530 ms Sinus rhythm with 1st degree A-V block Left axis deviation Right bundle branch block Abnormal ECG When compared with ECG of 19-MAR-2019 20:05, (Unconfirmed) Sinus rhythm has replaced Wide QRS rhythm Confirmed by CARMELLA SMITH ([id number]) on 05/21/2019 9:29:00 AM Referred By: ROSENDA OLIVER Confirmed By:CARMELLA SMITH
== END 2019-05-15 16:59 | disposition home health service (06) ==
LOC: ERS 14:29 → INTOOBSV 19:00 → 2NO 19:00
PROVIDERS: ADMIT Student in an Organized Health Care Education/Training Program; ATTEND Student in an Organized Health Care Education/Training Program
DX: R07.89 Other chest pain (principal); L89.612 Pressure ulcer of right heel, stage 2; L03.115 Cellulitis of right lower limb; I25.10 Atherosclerotic heart disease of native coronary artery without angina pectoris; I13.0 Hypertensive heart and chronic kidney disease with heart failure and stage 1 through stage 4 chronic kidney disease, or unspecified chronic kidney disease; N18.3 Chronic kidney disease, stage 3 (moderate); D63.1 Anemia in chronic kidney disease; I50.30 Unspecified diastolic (congestive) heart failure; J44.9 Chronic obstructive pulmonary disease, unspecified; E78.5 Hyperlipidemia, unspecified; I26.99 Other pulmonary embolism without acute cor pulmonale; R79.89 Other specified abnormal findings of blood chemistry; I35.0 Nonrheumatic aortic (valve) stenosis; I48.20 Chronic atrial fibrillation, unspecified; N40.0 Benign prostatic hyperplasia without lower urinary tract symptoms; Z86.73 Personal history of transient ischemic attack (TIA), and cerebral infarction without residual deficits; Z87.891 Personal history of nicotine dependence; Z79.899 Other long term (current) drug therapy; Z95.1 Presence of aortocoronary bypass graft
CPT/HCPCS: 71045; 71275; 73590; 73610; 73630; 80048; 80053; 82550; 82553; 83880; 84484 ×4; 85025; 85652; 86140; 93005; 94640 ×2; 94760 ×3; 96361 ×2; 96374; 96375; 97139 ×4; 99285; G0378 ×3; 36415; 36416; 93010; J2270; J3010; Q9967

== ENCOUNTER 2019-06-06 19:22 | Inpatient (IN) | payer MEDICARE ==
[2019-06-06] MEDS ORDERED: Nitroglycerin 0.4 MG TAB 1 EACH ONE (20:07)
[2019-06-06 20:11] LABS: #Basophils 0.1 thou/uL (0.0-0.2); #Eosinphils 0.2 thou/uL (0.0-0.7); #Lymphocytes 1.3 thou/uL (1.20-3.40); #Monocytes 0.4 thou/uL (0.11-0.59); #Neutrophils 2.1 thou/uL (1.40-6.50); %Basophils 1.8 % (0.0-1.0); %Eosinophils 3.9 % (0.0-10.0); %Lymphocytes 32.2 % (21.0-51.0); %Monocytes 9.8 % (0.0-10.0); %Neutrophils 52.2 % (42.0-75.0); Hemoglobin 10.7 g/dL (14.0-18.0); Mean Corpuscular HGB CONC 30.6 g/dL (32.0-36.0); Mean Corpuscular Hemoglobin 27.6 pg (27.0-31.0); Mean Corpuscular Volume 90.2 fL (78.0-98.0); Mean Platelet Volume 9.6 fL (7.4-10.4); Platelet Count 157 thou/uL (130-400); RBC Distribution Width 17.9 % (11.5-14.5); Red Blood Cell (RBC) Count 3.87 mill/uL (4.70-6.10)
--- NOTE | 2019-06-06 20:35 | RAD ---
XR Chest 1 View Portable History: Chest pain Comparison: Chest radiograph May 13, 2019 Findings: Heart size mildly enlarged. Scarring both lower lobes. No pneumothorax. No effusion. Prior mediastinal surgery. Impression: No acute intrathoracic abnormality.
[2019-06-06 20:37] LABS: ALT (SGPT) 32 U/L (8-55); AST (SGOT) 38 U/L (5-34); Albumin 3.3 g/dL (3.4-4.8); Alkaline Phosphatase 93 U/L (40-110); Anion Gap 16 mmol/L (10-20); BUN (Urea Nitrogen) 36 mg/dL (8.4-25.7); Bilirubin, Total 0.3 mg/dL (0.2-1.2); CK (CPK) 37 U/L (30-200); Calc. Creatinine Clearance 0 mL/min (70-130); Calcium 7.8 mg/dL (7.8-10.44); Carbon Dioxide 19 mmol/L (23-31); Chloride 112 mmol/L (98-107); Estimated GFR-MDRD 33; Globulin 3.1 g/dL (2.4-3.5); Glucose 104 mg/dL (83-110); Potassium 6.5 mmol/L (3.5-5.1); Protein, Total 6.4 g/dL (5.8-8.1); Sodium 140 mmol/L (136-145)
[2019-06-06] MEDS ORDERED: Calcium Chloride 1 GM/10 ML Abboject SYRINGE ONE ×2 (21:00→21:03)
[2019-06-06] MEDS ORDERED: Dextrose 50% Abboject 50 ML SYRINGE ONE (21:00)
[2019-06-06] MEDS ORDERED: Insulin Regular 300 UNITS/3 ML VIAL ONE (21:00)
[2019-06-06] MEDS ORDERED: Nitroglycerin 2% Ointment 1 INCH/1 GM Packet ONE (21:26)
--- NOTE | 2019-06-06 21:36 | PDOC.FPRHP ---
- History of Present Illness Chief Complaint: Chest pain, hyperkalemia History of Present Illness: Pt is an 83 yo male with PMH significant for 5 Vessel CABG, DVT/PE on Anti-coag , A-fib, HFpEF, BPH, COPD, CKD III, Carotid Stenosis, HTN, HLD, PVD, R Foot Ulcer, R Tib/Fib Fracture requiring medullary nailing and fixation who presents with chest pain typical of his unstable angina, SOB, hyperkalemia. He states his medications have changed since his last discharge but is unsure which medications. His shortness of breath started 1.5 hrs before presentation and resolved on its own. He was not exerting energy at the time as he is fairly immobile 2/2 his tib/fib fracture. His chest pain was typical of his unstable angina but slightly worse even with his topical nitro which he keeps on all day. Chest pain is pressure-like in nature, L sided, and does not radiate. He became slighly nauseated but denies diaphoresis. He is seen by wound care for his R heel pressure ulcer which is healing well. - Allergies/Adverse Reactions Allergies Allergy/AdvReac Type Severity Reaction Status Date / Time No Known Allergies Allergy Verified 12/12/18 15:45 - Home Medications Medication Instructions Recorded Confirmed Type Allopurinol 100 mg PO DAILY 12/12/18 06/07/19 History Tamsulosin HCl 1 cap PO DAILY 12/12/18 06/07/19 History Apixaban [Eliquis] 5 mg PO BID #60 tab 05/15/19 06/07/19 Rx Metoprolol Tartrate [Lopressor] 50 mg PO BID #60 tab 05/15/19 06/07/19 Rx ALPRAZolam [Xanax] 0.5 mg PO TID PRN 06/07/19 06/07/19 History Atorvastatin Calcium 20 mg PO HS 06/07/19 06/07/19 History Furosemide 20 mg PO DAILY PRN 06/07/19 06/07/19 History Gabapentin 300 mg PO TID 06/07/19 06/07/19 History Mometasone/Formoterol [Dulera 200 1 puff INH PRN PRN 06/07/19 06/07/19 History mcg/5 mcg Inhaler] Nitroglycerin [Nitroglycerin Patch] 0.6 mg TD DAILY 30 Days #30 patch 06/07/19 Rx Triamcinolone Acetonide 1 applic TOP TID PRN 06/07/19 06/07/19 History [Triamcinolone Acetonide 0.1% Lotion] Ventolin HFA Inhaler 1 puff INH PRN PRN 06/07/19 06/07/19 History - History PMHx: 5 Vessel CABG, DVT/PE on Anti-coag, A-fib, HFpEF, BPH, COPD, CKD III, Carotid Stenosis, HTN, HLD, PVD, R Foot Ulcer, R Tib/Fib Fracture requiring medullary nailing and fixation PSHx: CABG, Left Leg ORIF, partial gastrectomy for ulcer, hemorroidectomy FHx: Paternal - CAD Social: Former smoker - quit 2 years ago, denies any alcohol use or hx of drug use - Review of Systems General: denies: fever/chills, weight/appetite/sleep changes ENT: denies: nasal congestion, rhinorrhea Respiratory: reports: shortness of breath. denies: cough, congestion Cardiovascular: reports: chest pain, edema. denies: palpitation Gastrointestinal: denies: nausea, vomiting, diarrhea, constipation Skin: denies: rashes, lesions Musculoskeletal: reports: pain, tenderness Neurological: denies: numbness, syncope - Vital signs BP: 118/68 HR: 59 RR: 20 Tmax: 97.9 Pox: 94% on RA Wt: 86.6 kg - Physical Exam Constitutional: NAD, awake, alert and oriented HEENT: PERRLA, EOMI Neck: trachea midline, no JVD Chest: no lesions Heart: RRR, normal S1/S2, pulses present -Heart: 1+ LE pitting edema Lungs: CTAB -Lungs: Decreased air movement. Abdomen: soft, non-tender, bowel sounds present Musculoskeletal: normal tone -Musculoskeletal: R foot bandaged Neurological: no focal deficit, CN II-XII intact Heme/Lymphatic: no purpura, no petechia Psychiatric: normal mood and affect FMR H&P: Results - Labs Result Diagrams: 06/07/19 01:59 06/07/19 11:57 Lab results: WBC 4.0 thou/uL (4.8-10.8) L 06/06/19 20:04 Hgb 10.7 g/dL (14.0-18.0) L 06/06/19 20:04 Hct 35.0 % (42.0-52.0) L 06/06/19 20:04 MCV 90.2 fL (78.0-98.0) 06/06/19 20:04 Plt Count 157 thou/uL (130-400) 06/06/19 20:04 Neutrophils % 52.2 % (42.0-75.0) 06/06/19 20:04 Sodium 140 mmol/L (136-145) 06/06/19 20:04 Potassium 6.5 mmol/L (3.5-5.1) H 06/06/19 20:04 Chloride 112 mmol/L (98-107) H 06/06/19 20:04 Carbon Dioxide 19 mmol/L (23-31) L 06/06/19 20:04 BUN 36 mg/dL (8.4-25.7) H 06/06/19 20:04 Creatinine 1.97 mg/dL (0.7-1.3) H 06/06/19 20:04 Glucose 104 mg/dL (83-110) 06/06/19 20:04 Calcium 7.8 mg/dL (7.8-10.44) 06/06/19 20:04 Total Bilirubin 0.3 mg/dL (0.2-1.2) 06/06/19 20:04 AST 38 U/L (5-34) H 06/06/19 20:04 ALT 32 U/L (8-55) 06/06/19 20:04 Alkaline Phosphatase 93 U/L (40-110) 06/06/19 20:04 Creatine Kinase 37 U/L (30-200) 06/06/19 20:04 Serum Total Protein 6.4 g/dL (5.8-8.1) 06/06/19 20:04 Albumin 3.3 g/dL (3.4-4.8) L 06/06/19 20:04 - EKG Interpretation EKG: Bradycardia, R bundle branch block, TX prolonged, no ST chanages, no peaked T waves - Radiology Interpretation Chest x-ray Status: image reviewed by me, report reviewed by me Additional comment: no acute abnormalities FMR H&P: A/P - Problem List (1) Hyperkalemia Status: Acute Code(s): E87.5 - HYPERKALEMIA (2) CHF (congestive heart failure) Status: Acute Code(s): I50.9 - HEART FAILURE, UNSPECIFIED (3) Chest pain Status: Acute Code(s): R07.9 - CHEST PAIN, UNSPECIFIED (4) Edema Status: Acute Code(s): R60.9 - EDEMA, UNSPECIFIED (5) Hx of coronary artery bypass graft Status: Acute (6) Atrial fibrillation Status: Chronic Code(s): I48.91 - UNSPECIFIED ATRIAL FIBRILLATION (7) CAD (coronary artery disease) Status: Chronic Code(s): I25.10 - ATHSCL HEART DISEASE OF [place] CORONARY ARTERY W/O ANG PCTRS Qualifiers: Coronary Disease-Associated Artery/Lesion type: bypass graft (8) CKD (chronic kidney disease), stage III Status: Chronic Code(s): N18.3 - CHRONIC KIDNEY DISEASE, STAGE 3 (MODERATE) (9) COPD (chronic obstructive pulmonary disease) Status: Chronic (10) Creatinine elevation Status: Chronic Code(s): R79.89 - OTHER SPECIFIED ABNORMAL FINDINGS OF BLOOD CHEMISTRY - Plan Pt is an 83 yo male here for: # Hyperkalemia s/p CaCl, D50, Insulin, Kayexalate. No ST changes. - repeat K at 0000 on 06/07 - repeat am labs - repeat D50, Insulin, Kayexalate if remains elevated - d/c ARB, will start amlodipine 5 mg for blood pressure control # Unstable Angina # CAD s/p 5 Vessel CABG, stent placed after CABG Recently discharged for similar complaint. Denied stress test then. Admitted to only wanting medical therapy this visit. Echo 03/19 revealed EF 40-45%, hypokinetic inferior wall, probably diastolic dysfunction. Pt requires nitro patch 21/11 at home with usually good control. Medical Reviewer is Dr. Field. - hold metoprolol if pt changes wants procedure in am - consult cardiology in am - consider adding anti-anginal therapy - continue home apixaban - trend trops # A-Fib - held metoprolol, will monitor closely. He has remained bradycardic since admission. - continue apixaban, amiodarone # BPH - continue home meds # COPD - continue home meds # HTN - continue home meds as above # HLD, Carotid Artery Stenosis, PVD - not currently on therapy # CKD III - mildly elevated from baseline creatinine, 1.7. Recheck in am. - LR 100 mls/hr # DVT, PE - last admission pt's CTA revealed resolving PE. Continue apixaban # R Foot Ulcer - wound care consult - eschar over ulcer # Right Tib/Fib Fracture - PT/OT Fluids: LR 100 mls/hr Diet: NPO VTE: apixaban Code: Full Dispo: > 48 hrs FMR H&P: Upper Level - Plan Date/Time: 06/06/192134 IEstrella DO, have evaluated this patient and agree with findings/plan as outlined by phd intern resident. Pertinent changes/additions are listed here. 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 Improved now, cannot decipher what resolved his pain/ SOB. Pain worsened with exertion. He was recently admitted for similar pain and attributed to unstable angina- he declined NM stress at that time. He was told to f/u with door serviceman and cannot remember if he has or hasn't seen him since discharge. Was found to have K of 6.5 in ED. Was given Nitro 1in TD, Nitro 0.4 SL x2, morphine 2mg IV, Kayexalate 30g, Calcium chloride 1g, 10U Novolin and 1 amp D50. VS: 131/64, P55, R17, T97.9, O298%RA PE: Gen: obese, NAD HEENT: Moist MM Heart: Bradycardia, distant heart sounds with faint systolic murmur, Distal pulses 2+, no chest pain on palpation Lungs: CTAB, no wheezing. No increased work of breathing Abd: soft, nontender, BS hyperactive Ext: 1+ edema, healing stage 3 pressure ulcer on posterior R heel Pertinent Labs/Imaging: Trop <0.010 CMP- Na 140, K6.5, Cl112, Co219, BUN36, Cr1.97, Hdv407 CBC- WBC 4.0, RBC3.87, Hgb10.7, Hct35, Cvv739, ANC 2080, MCV 90 CXR mildly enlarged heart, scarring in b/l LL, no acute intrathoracic process EKG: sinus bradycardia with RBBB and 1st degree AV block with TX 272ms. No ST changes. A/P: Likely Unstable Angina: -recent admission and pt declined inpatient stress test. Appears he has similar thoughts, wanting medical therapy- will place NPO just in case. -door serviceman Dr. Flores -trop neg x1, will trend -continue nitro patch Hyperkalemia: -awaiting home med rec. Was discharged on Losartan which could be cause. Will d/c and start calcium channel sania. -s/p calcium, kayexelate, insulin/d50 in ED. Repeat BMP. MALKA on CKD3: -Baseline Cr 1.7, will give gentle IV hydration Normocytic Anemia of Chronic Disease: -at baseline Hx of DVT and PE, on daily Oral Anticoagulation: -continue Eliquis Decubitus Ulcers of RLE: -wound care consult -continue heel pressure relief boots HFrEF: -echo 03/2019 EF 40-45% with hypokinesis of inferior wall of LV cAfib: -continue Amiodarone. -hold BB for possible procedure in AM. COPD: -continue Dulera and prn Provenil HTN: -hold home Losartan as could be contributor to hyperkalemia. Will switch to calcium channel sania HLD: -continue home statin DVT PPx: Eliquis GI PPx: none Code Status: Full Dispo: Stable, LOS<48h Addendum - Attending - Attending Attestation Date/Time: 06/10/19 [id number] I personally evaluated the patient and discussed the management with Dr. Merritt at time of admission. I agree with the History, Examination, Assessment and Plan documented above with any addition or exceptions noted below.
[2019-06-06] MEDS ORDERED: Morphine 2 MG/ML SYRINGE ONE (21:48)
[2019-06-06 23:15] VITALS: BMI 28.5
[2019-06-06 23:35] LABS: Troponin I 0.025 ng/mL (< 0.028)
[2019-06-06] MEDS ORDERED: Acetaminophen 325 MG TAB PO PRN (23:45)
[2019-06-06] MEDS ORDERED: Ondansetron ODT 4 MG TAB SL PRN (23:45)
[2019-06-06] MEDS ORDERED: Ondansetron PF 4 MG/2 ML Vial IVP PRN (23:45)
[2019-06-06] MEDS ORDERED: HYDROcodone/Acetaminophen 5/325 mg Tablet PO PRN ×2 (23:45)
[2019-06-07] MEDS ORDERED: Acetaminophen 500 MG TAB PO PRN (00:26)
[2019-06-07] MEDS ORDERED: Senokot S 8.6-50 MG TAB PO PRN (00:26)
[2019-06-07 01:34] LABS: Potassium 5.2 mmol/L (3.5-5.1)
[2019-06-07] MEDS: Sodium Chloride 0.9% 1,000 ML IV SCH ×2 (02:03→12:32)
[2019-06-07 02:06] LABS: #Eosinphils 0.2 thou/uL (0.0-0.7); #Lymphocytes 1.3 thou/uL (1.20-3.40); #Monocytes 0.6 thou/uL (0.11-0.59); #Neutrophils 3.2 thou/uL (1.40-6.50); %Basophils 0.7 % (0.0-1.0); %Eosinophils 3.9 % (0.0-10.0); %Lymphocytes 24.9 % (21.0-51.0); %Monocytes 10.4 % (0.0-10.0); %Neutrophils 60.2 % (42.0-75.0); Mean Corpuscular HGB CONC 30.3 g/dL (32.0-36.0); Mean Corpuscular Hemoglobin 27.4 pg (27.0-31.0); Mean Corpuscular Volume 90.6 fL (78.0-98.0); Mean Platelet Volume 8.7 fL (7.4-10.4); Platelet Count 142 thou/uL (130-400); RBC Distribution Width 17.4 % (11.5-14.5); Red Blood Cell (RBC) Count 3.63 mill/uL (4.70-6.10); White Blood Cell (WBC) Count 5.4 thou/uL (4.8-10.8)
[2019-06-07 02:30] LABS: Troponin I 0.015 ng/mL (< 0.028)
[2019-06-07 02:32] LABS: Anion Gap 10 mmol/L (10-20); BUN (Urea Nitrogen) 36 mg/dL (8.4-25.7); Calc. Creatinine Clearance 37 mL/min (70-130); Calcium 9.3 mg/dL (7.8-10.44); Carbon Dioxide 24 mmol/L (23-31); Chloride 111 mmol/L (98-107); Estimated GFR-MDRD 37; Glucose 96 mg/dL (83-110); Potassium 5.2 mmol/L (3.5-5.1); Sodium 140 mmol/L (136-145)
--- NOTE | 2019-06-07 04:57 | PDOC.FM ---
- Subjective Subjective: Patient was resting comfortably in his hospital bed at the time evaluation. He denied any chest pain or worsening SOB (Patient has COPD and in SOB at baseline) . Patient stated that he would refuse a Stress Test, but may be amenable to a Heart Cath if indicated by Cardiology. Patient's brother will be arriving at some point this AM in order to provide an updated med list. - Objective Vital Signs & Weight: Vital Signs (12 hours) Temp Pulse Resp BP Pulse Ox 06/07/19 04:00 98.9 F 55 L 16 138/64 95 06/06/19 22:45 98.7 F 60 18 160/71 H 96 Weight Weight 82.554 kg Result Diagrams: 06/07/19 01:59 06/07/19 11:57 Phys Exam - Physical Examination Constitutional: NAD HEENT: moist MMs, sclera anicteric, oral pharynx no lesions Neck: supple, full ROM Respiratory: no rales, no rhonchi Mild inspiratory wheezing Cardiovascular: no significant murmur, no rub Gastrointestinal: soft, non-tender, no distention, positive bowel sounds Musculoskeletal: no edema, pulses present Neurological: moves all 4 limbs Resting tremor noted in RUE Psychiatric: normal affect Skin: no rash Dx/Plan (1) Hyperkalemia Code(s): E87.5 - HYPERKALEMIA Status: Acute (2) CHF (congestive heart failure) Code(s): I50.9 - HEART FAILURE, UNSPECIFIED Status: Acute (3) Hx of coronary artery bypass graft Status: Acute (4) Atrial fibrillation Code(s): I48.91 - UNSPECIFIED ATRIAL FIBRILLATION Status: Chronic (5) CAD (coronary artery disease) Code(s): I25.10 - ATHSCL HEART DISEASE OF [place] CORONARY ARTERY W/O ANG PCTRS Status: Chronic Qualifiers: Coronary Disease-Associated Artery/Lesion type: bypass graft (6) CKD (chronic kidney disease), stage III Code(s): N18.3 - CHRONIC KIDNEY DISEASE, STAGE 3 (MODERATE) Status: Chronic (7) COPD (chronic obstructive pulmonary disease) Status: Chronic - Plan Plan: Patient is an 83 y/o male who presents for evaluation of chest pain. # Unstable Angina -Patient was recently hospitalized for a similar complaint - refused Stress Test at that time -Per the Resident Night Team, patient only wants medical therapy this visit -Echo (11/19): EF 40-45%, hypokinetic inferior wall, probably diastolic dysfunction. -Pt requires nitro patch / at home with usually good control -Will hold Metoprolol if patient is amenable to receiving Stress Test this AM -Trops: Negative x3 -Continue home Apixaban regimen -Consult Cardiology this AM -Consider adding anti-anginal therapy to medication regimen prior to DC # Hyperkalemia -K: 6.5 on Admission > 5.2 x2 on repeat draws - will trend AM Labs -s/p CaCl, D50, Insulin, Kayexalate -No ST changes report on EKG in ED -DC home ARB - start Amlodipine 5 mg PO for BP control -Repeat D50, Insulin, Kayexalate if remains elevated # A-Fib -Currently holding home Metoprolol - will monitor closely -Continue home Apixaban, Amiodarone # CAD s/p 5 Vessel CABG, stent placed after CABG -Continue home medication regimen # BPH -Continue home medication regimen # COPD -O2Sat > 95% on Room Air since admission -Continue home medication regimen # HTN -Continue medication regimen as per above # HLD, Carotid Artery Stenosis, PVD -Patient reportedly not on medication regimen at this time - will investigate further # CKD III -Cr: 1.7 - elevated from baseline -LR @ 100 mls/hr -Trend AM Labs # DVT, PE -Patient was found to have resolving PEs on CTA during last admission -Continue Apixaban # Right Foot Ulcer -Wound Care Consult: Pending # Right Tib/Fib Fracture s/p Surgical Fixation -PT/OT Consult: Pending Code: Full Diet: NPO IVF: LR 100 mls/hr VTE PPx: Home Apixaban Regimen Dispo: Patient is currently admitted to the Telemetry Floor for Unstable Angina , Hyperkalemia. Will engage with patient on preferred treatment plan due to patient's previous refusal of Stress Test in the past 4 weeks. Will consult Cardiology this AM if indicated. Continue to monitor other chronic medical conditions and await input from PT/OT and Wound Care. Expected LOS > 48H. Addendum - Attending - Attending Attestation Date/Time: 06/07/191811 I personally evaluated the patient and discussed the management with Dr. Villalobos. I agree with the History, Examination, Assessment and Plan documented above with any addition or exceptions noted below.
[2019-06-07] MEDS ORDERED: PROVENTIL INHALER 6.7 G (200 INHALATIONS) INH SCH (06:30)
[2019-06-07] MEDS ORDERED: Mometasone/Formoterol 120 PUFF INHALER INH SCH (06:30)
[2019-06-07] MEDS ORDERED: Dextrose 50% Abboject 50 ML SYRINGE SLOW IVP PRN (07:55)
[2019-06-07] MEDS ORDERED: Dextrose 5% in Water 1,000 ML IV PRN (07:55)
[2019-06-07 08:13] VITALS: TEMP 97.5
[2019-06-07] MEDS ORDERED: Amlodipine 5 MG TAB PO SCH (09:00)
[2019-06-07] MEDS ORDERED: Allopurinol 100 MG TAB PO SCH (09:00)
[2019-06-07] MEDS ORDERED: Apixaban 2.5 MG TAB PO SCH (09:00)
[2019-06-07] MEDS ORDERED: Amiodarone 200 MG TAB PO SCH (09:00)
[2019-06-07 12:31] LABS: Anion Gap 10 mmol/L (10-20); BUN (Urea Nitrogen) 33 mg/dL (8.4-25.7); Calc. Creatinine Clearance 40 mL/min (70-130); Carbon Dioxide 25 mmol/L (23-31); Chloride 112 mmol/L (98-107); Estimated GFR-MDRD 41; Sodium 142 mmol/L (136-145)
[2019-06-07 12:32] LABS: Calcium 8.7 mg/dL (7.8-10.44); Glucose 90 mg/dL (83-110)
--- NOTE | 2019-06-07 14:37 | CON ---
DATE OF CONSULTATION: REASON FOR CONSULTATION: Chest pain. HISTORY OF PRESENT ILLNESS: Mr. Clarke is an 83-year-old gentleman with previous history of CAD, status post bypass surgery (40 years ago?), in addition to stent placement x1 in [place], [place]. This was 2 years ago. He recently presented with mainly shortness of breath. He did have one episode of chest tightness, lasting 20 minutes. No other ameliorating, exacerbating, or precipitating factors present. He states he is feeling much better now. No nausea, vomiting, or other associated symptoms. PAST MEDICAL HISTORY: 1. CAD, status post bypass surgery 40 years ago per the patient. 2. Stent placement 2 years ago in [place]. 3. Hyperlipidemia. 4. Hypertension. 5. COPD. 6. Atrial fibrillation. SOCIAL HISTORY: Recently quit all tobacco products. ALLERGIES: NONE. MEDICATIONS: Include; 1. Amiodarone. 2. Lipitor. 3. Losartan. 4. Tramadol. 5. Prilosec. 6. Symbicort. PRIMARY CLOTH BEAMER: Dr. Julius Field. REVIEW OF SYSTEMS: A 10-point review of systems is reviewed and as above, otherwise negative. PHYSICAL EXAMINATION: GENERAL: Patient is a pleasant male, who is in no acute distress. The patient appears their stated age. VITAL SIGNS: Blood pressure 155/71, pulse 54, temperature 97.5. NEUROLOGIC: The patient is alert and oriented x3 with no focal neurologic deficits. HEENT: Sclerae without icterus. Mouth has moist mucous membranes with normal pallor. NECK: No JVD. Carotid upstroke brisk. No bruits bilaterally. LUNGS: Clear to auscultation with unlabored respirations. BACK: No scoliosis or kyphosis. CARDIAC: Regular rate and rhythm with normal S1 and S2. No S3 or S4 noted. No significant rubs, murmurs, thrills, or gallops noted throughout the precordium. PMI is not displaced. There is no parasternal heave. ABDOMEN: Soft, nontender, nondistended. No peritoneal signs present. No hepatosplenomegaly. No abnormal striae. EXTREMITIES: 2+ femoral and 2+ dorsalis pedis pulses. No cyanosis, clubbing, or edema. SKIN: No gross abnormalities. PERTINENT LABORATORY DATA: Hemoglobin 10.0, hematocrit 32.9. EKG, normal sinus rhythm with nonspecific ST-T wave changes. IMPRESSION: 1. Shortness of breath. 2. Chest pain. 3. Coronary artery disease. 4. Status post bypass surgery. RECOMMENDATIONS: Mr. Clarke states he has not had a recent stress study performed. He is not interested in proceeding with a noninvasive stress study. He also states he is not interested in proceeding with coronary angiography. He would prefer medical therapy. His CK and troponin are negative. His EKG does not show any acute changes. Certainly it seems reasonable. We will increase his nitro patch to 0.6 mg per day. Consider Ranexa. Continue metoprolol in addition to Eliquis and losartan. Job ID: [id number]
[2019-06-07 15:56] VITALS: BP 154/72
--- NOTE | 2019-06-08 02:39 | DIS ---
DATE OF ADMISSION: 06/06/2019 DATE OF DISCHARGE: 06/07/2019 RESIDENT: Igor Villalobos MD. ADMITTING ATTENDING: Luis Eduardo Khan MD. DISCHARGE ATTENDING: Lobo Garcia MD. CONSULTS: Dr. Andrey Harrington, cardiology. PROCEDURES: Chest x-ray showing no acute intrathoracic abnormality. PRIMARY DIAGNOSIS: Unstable angina. SECONDARY DIAGNOSES: 1. Hyperkalemia. 2. Congestive heart failure. 3. History of coronary artery bypass graft. 4. Atrial fibrillation. 5. Coronary artery disease. 6. Chronic kidney disease stage 3. 7. Chronic obstructive pulmonary disease. DISCHARGE MEDICATIONS: Nitroglycerin patch 0.6 mg daily. DISCONTINUED MEDICATIONS: 1. Tylenol 1000 mg p.o. q.8 hours. 2. Proventil 1 puff b.i.d. 3. Allopurinol 100 mg p.o. daily. 4. Amiodarone 200 mg p.o. daily. 5. Amlodipine 5 mg p.o. daily. 6. Apixaban 2.5 mg p.o. b.i.d. 7. Dulera 1 puff b.i.d. 8. Sodium chloride 1100 mL/hour. 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 He states medications have changed since last discharge, but is unsure with which medications this shortness of breath started 1.5 hours before presentation and resolved on its own. He was not exerting energy at the time and he is fairly immobile secondary to his tibia and fibula fractures. His chest pain was typical for unstable angina, but slightly worse even with topical nitroglycerin patches, which he keeps on 24 hours a day. His chest pain was pressure-like in nature, left-sided, and did not radiate. He became slightly nauseated, but denied diaphoresis. He is being seen by wound care for his right heel pressure ulcer which is healing well. While in the ED, his EKG was read as consistent with his previous EKGs demonstrating first-degree AV block as well as a right bundle branch block without ST elevations. Troponins were negative x3. As such, he was subsequently transferred to telemetry floor for workup of unstable angina. Cardiology was consulted and the patient refused a stress study. Additionally, he refused proceeding with coronary angiography and would prefer a medical therapy instead. Per cardiology's note, his CK and troponins were all negative and his EKG did not show any acute changes. As such, medical management seems likely, and Cardiology recommended an increase of his nitroglycerin patch from 0.4 mg per day to 0.6 mg per day. Additionally, the patient should consider Ranexa in an outpatient setting as he sees Dr. Field, Cardiology regularly. As the patient was amenable to this option, he was subsequently prepped for discharge. Prior to discharge, the patient's vital signs were recorded as temperature 97.5, pulse 54 beats per minute, respirations 20, O2 saturations 97% on room air, blood pressure 154/72. LABORATORY DATA: Laboratory analysis revealed a white blood cell count of 5.4, hemoglobin of 10, hematocrit 32.9, platelet count 142. Chem panel revealed a sodium of 142, potassium of 5 down from 6.5 on admission; chloride 112, carbon dioxide 25, BUN 33, creatinine 1.63, down from 1.97 on admission, glucose 116, calcium 8.7, bilirubin 0.3, AST 38, ALT 32, alkaline phosphatase 93, creatine kinase 37. Troponins negative x3. DISPOSITION: Stable. DISCHARGE INSTRUCTIONS: 1. Location: Home. 2. Diet: Heart healthy. ACTIVITY: 1. No restrictions. 2. Followup: The patient was encouraged to follow up with his primary care provider in 1 to 2 weeks or discuss his most recent hospitalization. Additionally, the patient was encouraged to follow up with his pressure tank operator Dr. Field in 1 to 2 weeks in order to discuss this most recent hospitalization as well as ongoing medication optimization, specifically with regard to an anti-anginal medication such as Ranexa. Job ID: [id number] MTDD
== END 2019-06-07 18:20 | disposition home or self-care (01) | DRG 303 ==
LOC: ERS 19:22 → 2NO 22:40
PROVIDERS: ADMIT Family Medicine; ATTEND Family Medicine
DX: I25.110 Atherosclerotic heart disease of native coronary artery with unstable angina pectoris (principal); I13.0 Hypertensive heart and chronic kidney disease with heart failure and stage 1 through stage 4 chronic kidney disease, or unspecified chronic kidney disease; I50.32 Chronic diastolic (congestive) heart failure; N17.9 Acute kidney failure, unspecified; I48.91 Unspecified atrial fibrillation; Z95.1 Presence of aortocoronary bypass graft; Z79.02 Long term (current) use of antithrombotics/antiplatelets; N18.3 Chronic kidney disease, stage 3 (moderate); J44.9 Chronic obstructive pulmonary disease, unspecified; E78.5 Hyperlipidemia, unspecified; E87.5 Hyperkalemia; Z87.891 Personal history of nicotine dependence; Z98.890 Other specified postprocedural states; N40.0 Benign prostatic hyperplasia without lower urinary tract symptoms; D64.9 Anemia, unspecified; L89.151 Pressure ulcer of sacral region, stage 1; L89.622 Pressure ulcer of left heel, stage 2; L89.612 Pressure ulcer of right heel, stage 2; Z86.711 Personal history of pulmonary embolism; Z86.718 Personal history of other venous thrombosis and embolism; Z79.01 Long term (current) use of anticoagulants
CPT/HCPCS: 36415; 36416; 71045; 80048; 80053; 82550; 84484; 85025; 93005; 96374; 96375; J1815; J2270

== ENCOUNTER 2019-06-13 12:02 | Observation (INO) | payer MEDICARE ==
[2019-06-13 13:01] LABS: #Eosinphils 0.2 thou/uL (0.0-0.7); #Lymphocytes 1.7 thou/uL (1.20-3.40); #Monocytes 0.6 thou/uL (0.11-0.59); #Neutrophils 2.9 thou/uL (1.40-6.50); %Basophils 0.6 % (0.0-1.0); %Eosinophils 2.9 % (0.0-10.0); %Lymphocytes 31.5 % (21.0-51.0); %Monocytes 10.4 % (0.0-10.0); %Neutrophils 54.5 % (42.0-75.0); Hemoglobin 9.7 g/dL (14.0-18.0); Mean Corpuscular HGB CONC 31.2 g/dL (32.0-36.0); Mean Corpuscular Hemoglobin 28.5 pg (27.0-31.0); Mean Corpuscular Volume 91.1 fL (78.0-98.0); Mean Platelet Volume 8.7 fL (7.4-10.4); Platelet Count 144 thou/uL (130-400); RBC Distribution Width 17.3 % (11.5-14.5); Red Blood Cell (RBC) Count 3.41 mill/uL (4.70-6.10); White Blood Cell (WBC) Count 5.3 thou/uL (4.8-10.8)
[2019-06-13 13:14] LABS: ALT (SGPT) 20 U/L (8-55); AST (SGOT) 25 U/L (5-34); Alkaline Phosphatase 85 U/L (40-110); Anion Gap 12 mmol/L (10-20); BUN (Urea Nitrogen) 31 mg/dL (8.4-25.7); Bilirubin, Total 0.3 mg/dL (0.2-1.2); Calc. Creatinine Clearance 0 mL/min (70-130); Calcium 8.2 mg/dL (7.8-10.44); Carbon Dioxide 26 mmol/L (23-31); Chloride 108 mmol/L (98-107); Estimated GFR-MDRD 44; Globulin 2.5 g/dL (2.4-3.5); Glucose 94 mg/dL (83-110); Potassium 4.2 mmol/L (3.5-5.1); Protein, Total 5.5 g/dL (5.8-8.1); Sodium 142 mmol/L (136-145)
[2019-06-13 13:15] LABS: Lactic Acid 1.4 mmol/L (0.5-2.2)
[2019-06-13 13:34] LABS: INR-International Normal Ratio 1.3; PTT 35.6 SEC (22.9-36.1); Prothrombin Time 15.8 SEC (12.0-14.7)
--- NOTE | 2019-06-13 13:35 | RAD ---
PORTBLE CHEST ONE VIEW: 06/13/19 at 12:44 p.m. HISTORY: Lethargy, productive cough. FINDINGS/IMPRESSION: Comparison made with exam of 04/25/19. Changes of median sternotomy again seen. The heart size is mildly enlarged. Scarring in the lung bas es is again noted. No lobar consolidation, pneumothoraces, jian pulmonary edema or large effusions a re seen. POS: OFF
[2019-06-13] MEDS ORDERED: Cefepime 2 GM VIAL ONE (13:42)
--- NOTE | 2019-06-13 14:03 | CT ---
CT BRAIN NONCONTRAST: DATE: 06/13/2019 HISTORY: 83-year-old male with acute left facial droop. COMPARISON: 03/19/2019 This level 2 stroke report was verbally given by Dr. Kunz to nurse practitioner Gamaliel and Dr. Lopez at 1:40 PM 06/13/2019 FINDINGS: There is no evidence of acute intra-axial or extra-axial hemorrhage. There is no midline shift or any other mass effect. There is no extra-axial fluid collection. There is no evidence of obstructive hydrocephalus. Calvarium is intact. There is diffuse brain parenchymal volume loss. There are low att enuation areas in the white matter. These are nonspecific, but in a patient of this age, they are probably chronic ischemic white matter changes due to microvascular atherosclerosis. There is a small focus of encephalomalacia and gliosis in the left occipital pole. There is no interval change overall. IMPRESSION: 1) No acute intracranial findings. 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 3) involutional changes and chronic ischemic white matter changes.
[2019-06-13] MEDS ORDERED: methylPREDNISolone Sod Succ/PF 125 MG/2 ML VIAL ONE (15:58)
--- NOTE | 2019-06-13 16:42 | PDOC.FPRHP ---
- History of Present Illness Chief Complaint: AMS History of Present Illness: Pt is an 83 yo male here for difficulty to arouse this afternoon at 1400. He states his family then sent him to the emergency department for the changes. His symptoms had resolved before our interview. He no specific complaints but did endorse urinary frequency. The ED noted him to have wheezing. He did not endorse wheezing during interview. He denies fever, chills, cough, abdominal pain, diarrhea, constipation. He does have a R ulcer to the R heel. He had a negative CT head for L sided facial droop but upon further evaluation this is not new. He endorsed LE edema for 2 days. He is out of his lasix. He was recently discharged from the hospital for chest pain ruleout. ED Course: solumedrol, duoneb, 30ml/kg bolus, cefepime, levaquin CBC, CMP, trop, bnp, cxr - Allergies/Adverse Reactions Allergies Allergy/AdvReac Type Severity Reaction Status Date / Time No Known Allergies Allergy Verified 12/12/18 15:45 - Home Medications Medication Instructions Recorded Confirmed Type Allopurinol 100 mg PO DAILY 12/12/18 06/07/19 History Tamsulosin HCl 1 cap PO DAILY 12/12/18 06/07/19 History Apixaban [Eliquis] 5 mg PO BID #60 tab 05/15/19 06/07/19 Rx Metoprolol Tartrate [Lopressor] 50 mg PO BID #60 tab 05/15/19 06/07/19 Rx ALPRAZolam [Xanax] 0.5 mg PO TID PRN 06/07/19 06/07/19 History Atorvastatin Calcium 20 mg PO HS 06/07/19 06/07/19 History Furosemide 20 mg PO DAILY PRN 06/07/19 06/07/19 History Gabapentin 300 mg PO TID 06/07/19 06/07/19 History Mometasone/Formoterol [Dulera 200 1 puff INH PRN PRN 06/07/19 06/07/19 History mcg/5 mcg Inhaler] Nitroglycerin [Nitroglycerin Patch] 0.6 mg TD DAILY 30 Days #30 patch 06/07/19 Rx Triamcinolone Acetonide 1 applic TOP TID PRN 06/07/19 06/07/19 History [Triamcinolone Acetonide 0.1% Lotion] Ventolin HFA Inhaler 1 puff INH PRN PRN 06/07/19 06/07/19 History - History PMHx:5 Vessel CABG, DVT/PE on Anti-coag, A-fib, HFpEF, BPH, COPD, CKD III, Carotid Stenosis, HTN, HLD, PVD, R Foot Ulcer, R Tib/Fib Fracture requiring medullary nailing and fixation PSHx: CABG, Left Leg ORIF, partial gastrectomy for ulcer, hemorroidectomy FHx: Paternal - CAD Social: Former smoker - quit 2 years ago, denies any alcohol use or hx of drug use - Review of Systems General: denies: fever/chills, weight/appetite/sleep changes Eyes: denies: vision changes ENT: denies: nasal congestion, rhinorrhea Respiratory: reports: cough. denies: shortness of breath Cardiovascular: reports: edema. denies: chest pain Gastrointestinal: denies: nausea, vomiting, abdominal pain Genitourinary: reports: polyuria. denies: dysuria Skin: reports: lesions (pressure ulcers). denies: rashes Musculoskeletal: reports: swelling. denies: pain Neurological: reports: weakness. denies: numbness - Vital signs BP: 116/90 HR: 65 RR: 16 Tmax: 97.6 Pox: 100% on RA - Physical Exam Constitutional: NAD, awake, alert and oriented -Constitutional: AAO x 3 HEENT: PERRLA, EOMI Neck: supple, trachea midline, no JVD Heart: normal S1/S2, no edema -Heart: Irregular rate and rhythm Lungs: CTAB, no respiratory distress, no rales/rhonchi, no wheezing, no retractions -Lungs: decreased air movement Abdomen: soft, non-tender, bowel sounds present Musculoskeletal: normal structure Neurological: no focal deficit, CN II-XII intact Skin: capillary refill <2 seconds -Skin: R heel ulcer with eschar, no rising erythema Heme/Lymphatic: no purpura, no petechia Psychiatric: normal mood and affect, good judgment and insight FMR H&P: Results - Labs Result Diagrams: 06/13/19 12:32 06/13/19 12:32 Lab results: WBC 5.3 thou/uL (4.8-10.8) 06/13/19 12:32 Hgb 9.7 g/dL (14.0-18.0) L 06/13/19 12:32 Hct 31.0 % (42.0-52.0) L 06/13/19 12:32 MCV 91.1 fL (78.0-98.0) 06/13/19 12:32 Plt Count 144 thou/uL (130-400) 06/13/19 12:32 Neutrophils % 54.5 % (42.0-75.0) 06/13/19 12:32 Sodium 142 mmol/L (136-145) 06/13/19 12:32 Potassium 4.2 mmol/L (3.5-5.1) 06/13/19 12:32 Chloride 108 mmol/L (98-107) H 06/13/19 12:32 Carbon Dioxide 26 mmol/L (23-31) 06/13/19 12:32 BUN 31 mg/dL (8.4-25.7) H 06/13/19 12:32 Creatinine 1.53 mg/dL (0.7-1.3) H 06/13/19 12:32 Glucose 94 mg/dL (83-110) 06/13/19 12:32 Lactic Acid 1.4 mmol/L (0.5-2.2) 06/13/19 12:32 Calcium 8.2 mg/dL (7.8-10.44) 06/13/19 12:32 Total Bilirubin 0.3 mg/dL (0.2-1.2) 06/13/19 12:32 AST 25 U/L (5-34) 06/13/19 12:32 ALT 20 U/L (8-55) 06/13/19 12:32 Alkaline Phosphatase 85 U/L (40-110) 06/13/19 12:32 B-Natriuretic Peptide 528.0 pg/mL (0-100) H 06/13/19 12:32 Serum Total Protein 5.5 g/dL (5.8-8.1) L 06/13/19 12:32 Albumin 3.0 g/dL (3.4-4.8) L 06/13/19 12:32 - Radiology Interpretation Chest x-ray Status: image reviewed by me, report reviewed by me Additional comment: mildly enlarged heart CT scan - head Status: image reviewed by me Additional comment: no acute abnormalities, chronic changes FMR H&P: A/P - Problem List (1) Altered mental status Current Visit: Yes Status: Acute Code(s): R41.82 - ALTERED MENTAL STATUS, UNSPECIFIED (2) CHF (congestive heart failure) Current Visit: No Status: Acute Code(s): I50.9 - HEART FAILURE, UNSPECIFIED (3) Edema Current Visit: No Status: Acute Code(s): R60.9 - EDEMA, UNSPECIFIED (4) Hx of coronary artery bypass graft Current Visit: No Status: Acute (5) Pressure ulcer of right heel, stage 2 Current Visit: No Status: Acute Code(s): L89.612 - PRESSURE ULCER OF RIGHT HEEL, STAGE 2 (6) Shortness of breath Current Visit: No Status: Acute Code(s): R06.02 - SHORTNESS OF BREATH (7) Atrial fibrillation Current Visit: No Status: Chronic Code(s): I48.91 - UNSPECIFIED ATRIAL FIBRILLATION (8) CKD (chronic kidney disease), stage III Current Visit: No Status: Chronic Code(s): N18.3 - CHRONIC KIDNEY DISEASE, STAGE 3 (MODERATE) (9) COPD (chronic obstructive pulmonary disease) Current Visit: No Status: Chronic - Plan Pt is an 83 yo male here for: # Encephalopathy - resolved Possibly infectious, head CT negative, no focal deficits suggesting TIA vs Stroke - pending UA, UCx, TSH, Procal, Ammonia - start ceftriaxone if urine indicates infection, pt has adequate coverage with levaquin, cefepime from ED - held gabapentin, xanax # Fluid Overload, CHF EF 40-45% - hold lasix until infection ruled out - if non-infectious then start lasix but currently pt's respiratory is preserved. # CKD III - at baseline # Hx of DVT/PE - continue home meds # A-Fib - continue home meds # CAD, 5 Vessel CABG, PVD - continue home meds # BPH - continue home meds # HTN - continue home meds # HLD - continue home meds Diet: HH, Fluid Restrict Fluids: None VTE: therapeutic anticoag Code: Chem-Int Dispo: < 48 hours FMR H&P: Upper Level - Plan Date/Time: 06/13/19 [id number] Glen Duong DO, have evaluated this patient and agree with findings/plan as outlined by video production intern resident. Pertinent changes/additions are listed here. Mr. Clarke is an 83 year old male that presents for ams reported by family he is AOx3 upon my examination and complains of dyspnea and cough that have improved since his last admission. additionally he reports polyuria, orthopnea, and PND. recent echo reveals an EF of 40-45%. denies chest pain, syncope, vision changes, dysuria. He was recently discharged from our service with a diagnosis of unstable angina and fu with his associate application developer PE General: NAD HEENT: NCAT Chest: even inspiratory and expiratory effort, no retractions, CTAB, RRR, no sig murmur Abdomen: non distended, NTTP MSK: no weakness, or loss of ROM noted Extremities: 2+ pitting edema, pulses present Neuro: grossly intact, no focal deficits See video production intern portion for full ROS, PE, labs and vitals. A/P Encephalopathy, likely metabolic - undetermined cause, will eval further with procal, UA, tsh, ammonia - consider UTI as possible cause - begin rocephin CHF exacerbation - elevated BNP, LE edema - gentle IVF with hx of HFrEF - if infectious workup negative, diurese COPD - unlikely to be in exacerbation - nebs prn see video production intern note for mgmt of chronic dz Dispo: admit to telemetry for further eval and monitoring
[2019-06-13 19:06] LABS: Troponin I Less than 0.010 ng/mL (< 0.028)
[2019-06-13] MEDS ORDERED: Mometasone/Formoterol 120 PUFF INHALER INH PRN (19:50)
[2019-06-13] MEDS ORDERED: PROVENTIL INHALER 6.7 G (200 INHALATIONS) INH PRN (19:50)
[2019-06-13] MEDS ORDERED: (Triamcinolone Acetonide [Triamcinolone Acetonide 0.1% Lotion] TOP PRN (19:50)
[2019-06-13] MEDS ORDERED: Atorvastatin Calcium 20 MG TAB PO SCH (21:00)
[2019-06-13] MEDS ORDERED: Ondansetron PF 4 MG/2 ML Vial IVP SCH (21:11)
[2019-06-13] MEDS ORDERED: Ondansetron PF 4 MG/2 ML Vial IVP PRN (21:11)
[2019-06-13] MEDS ORDERED: Acetaminophen 325 MG TAB PO SCH (21:11)
[2019-06-13] MEDS ORDERED: Acetaminophen 325 MG TAB PO PRN (21:11)
[2019-06-13 21:44] LABS: Bacteria/HPF None Seen HPF (None Seen); Bilirubin Negative (Negative); Blood, Urine 2+ (Negative); Clarity Clear (Clear); Glucose, Urine (Dipstick) Normal (Negative); Leukocyte Negative Leu/uL (Negative); Nitrite Negative (Negative); Protein, Urine (Dipstick) Negative (Neg-Trace); Squamous Epithelial None Seen HPF (0-3); Urobilinogen Normal mg/dL (Less than 2); WBC/HPF 0-3 HPF (0-3)
[2019-06-13] MEDS: Apixaban 5 MG TAB PO SCH (21:46)
[2019-06-13] MEDS: Metoprolol Tartrate 50 MG TAB PO SCH (21:46)
[2019-06-14 04:34] LABS: #Lymphocytes 0.6 thou/uL (1.20-3.40); #Monocytes 0.1 thou/uL (0.11-0.59); #Neutrophils 2.6 thou/uL (1.40-6.50); %Eosinophils 0.2 % (0.0-10.0); %Lymphocytes 18.8 % (21.0-51.0); %Monocytes 2.3 % (0.0-10.0); %Neutrophils 78.7 % (42.0-75.0); Hemoglobin 10.2 g/dL (14.0-18.0); Mean Corpuscular Volume 90.6 fL (78.0-98.0); Mean Platelet Volume 8.8 fL (7.4-10.4); Platelet Count 138 thou/uL (130-400); RBC Distribution Width 17.1 % (11.5-14.5); White Blood Cell (WBC) Count 3.3 thou/uL (4.8-10.8)
[2019-06-14 04:53] LABS: Anion Gap 13 mmol/L (10-20); BUN (Urea Nitrogen) 29 mg/dL (8.4-25.7); Calc. Creatinine Clearance 48 mL/min (70-130); Calcium 8.6 mg/dL (7.8-10.44); Carbon Dioxide 26 mmol/L (23-31); Chloride 105 mmol/L (98-107); Estimated GFR-MDRD 49; Glucose 150 mg/dL (83-110); Potassium 4.1 mmol/L (3.5-5.1); Sodium 140 mmol/L (136-145)
--- NOTE | 2019-06-14 06:24 | PDOC.FM ---
- Subjective Subjective: Pt is doing well this morning. He denies any complaints. He did not have altered mental status this am. He slept well through the evening. Overnight he did require a bladder scan revealing retained urine requiring a beckford catheter. He has voided one time since without difficulty. - Objective Vital Signs & Weight: Vital Signs (12 hours) Temp Pulse Resp BP Pulse Ox 06/14/19 03:56 98.8 F 63 18 138/95 H 94 L 06/14/19 00:00 60 129/62 06/13/19 19:00 97.7 F 58 L 16 147/77 H 97 Weight Weight 84.17 kg Result Diagrams: 06/14/19 04:08 06/14/19 04:08 Phys Exam - Physical Examination Constitutional: NAD HEENT: PERRLA, oral pharynx no lesions Respiratory: no wheezing, no rhonchi, clear to auscultation bilateral Cardiovascular: RRR, no significant murmur Gastrointestinal: soft, non-tender, positive bowel sounds Musculoskeletal: pulses present trace LE edema Psychiatric: normal affect, A&O x 3 Dx/Plan (1) Altered mental status Code(s): R41.82 - ALTERED MENTAL STATUS, UNSPECIFIED Status: Acute (2) CHF (congestive heart failure) Code(s): I50.9 - HEART FAILURE, UNSPECIFIED Status: Acute (3) Edema Code(s): R60.9 - EDEMA, UNSPECIFIED Status: Acute (4) Hx of coronary artery bypass graft Status: Acute (5) Pressure ulcer of right heel, stage 2 Code(s): L89.612 - PRESSURE ULCER OF RIGHT HEEL, STAGE 2 Status: Acute (6) Shortness of breath Code(s): R06.02 - SHORTNESS OF BREATH Status: Acute (7) Atrial fibrillation Code(s): I48.91 - UNSPECIFIED ATRIAL FIBRILLATION Status: Chronic (8) CKD (chronic kidney disease), stage III Code(s): N18.3 - CHRONIC KIDNEY DISEASE, STAGE 3 (MODERATE) Status: Chronic (9) COPD (chronic obstructive pulmonary disease) Status: Chronic - Plan Plan: Pt is an 83 yo male here for: # Urinary Retention - required cath one time. Voided once since cath. Will monitor for resolution then likely discharge. # Encephalopathy - resolved Likely 2/2 medication, sleep deprivation. Pt slept poor 2 nights ago, took xanax/gabapentin, and took a sleeping pill in the morning to help sleep in the afternoon. Not likely infectious; head CT negative, no focal deficits suggesting TIA vs Stroke - discussed risks of sedating medications - UA, TSH, Procal, Ammonia WNL. UCx pending. - will not add abx - held gabapentin, xanax # Fluid Overload, CHF EF 40-45% - will continue home lasix, he is less overloaded today. Unsure of sleep medication he took but could possibly have anticholinergic causing urinary retention. # CKD III - at baseline # Hx of DVT/PE - continue home meds # A-Fib - continue home meds # CAD, 5 Vessel CABG, PVD - continue home meds # BPH - continue home meds # HTN - continue home meds # HLD - continue home meds Diet: HH, Fluid Restrict Fluids: None VTE: therapeutic anticoag Code: Chem-Int Dispo: < 48 hours Addendum - Attending - Attending Attestation Date/Time: 06/14/19 1202 I personally evaluated the patient and discussed the management with Dr. Merritt I agree with the History, Examination, Assessment and Plan documented above with any addition or exceptions noted below. Patient likely had a toxic metabolic encephalopathy due to polypharmacy. Fluid status appears to be improved. Will d/c gabapentin and xanax. PT to evaluate patient today. he currently lives in an apartment that he shares with his brother but does not want to consider SNF placement at this time. Discussed risks with patient who expressed understanding.
[2019-06-14] MEDS: Metoprolol Tartrate 50 MG TAB PO SCH (08:46)
[2019-06-14] MEDS: Apixaban 5 MG TAB PO SCH (08:46)
[2019-06-14] MEDS ORDERED: Allopurinol 100 MG TAB PO SCH (09:00)
[2019-06-14] MEDS ORDERED: Tamsulosin HCl 0.4 MG CAP PO SCH (09:00)
[2019-06-14] MEDS ORDERED: Nitroglycerin 0.6mg/Hour PATCH TD SCH (09:00)
[2019-06-14 12:13] VITALS: BMI 28.5
[2019-06-14 15:41] VITALS: TEMP 97.7
[2019-06-14 16:36] VITALS: BP 118/53
--- NOTE | 2019-06-17 09:48 | DIS ---
DATE OF ADMISSION: 06/13/2019 DATE OF DISCHARGE: 06/14/2019 RESIDENT: Curt Merritt DO ADMITTING ATTENDING: Dileep Mims MD DISCHARGE ATTENDING: Dileep Mims MD CONSULTS: None. PROCEDURES: Chest x-ray on 06/13/2019, revealed heart size mildly enlarged. Scarring in the lung bases again noted. No lobar consolidation, pneumothoraces, jian pulmonary edema, or large effusion seen. Brain CT on 06/13/2019, revealed no acute intracranial findings. Small old left occipital infarction in the left posterior cerebral artery territory, involution changes and chronic ischemic white matter changes. PRIMARY DIAGNOSES: 1. Encephalopathy, likely secondary to medication. 2. Urinary retention. 3. Fluid overload. 4. Congestive heart failure with an EF of 40% to 45%. SECONDARY DIAGNOSES: 1. Chronic kidney disease 3. 2. History of deep venous thrombosis/pulmonary embolism with anticoagulation. 3. Atrial fibrillation. 4. Coronary artery disease. 5. Five-vessel CABG. 6. Peripheral vascular disease. 7. BPH. 8. Hypertension. 9. Hyperlipidemia. DISCHARGE MEDICATIONS: 1. Allopurinol 100 mg p.o. daily. 2. Eliquis 5 mg p.o. b.i.d. 3. Metoprolol 50 mg p.o. b.i.d. 4. Atorvastatin 20 mg p.o. at bedtime. 5. Dulera 200 mcg/5 mcg inhaler two puffs inhaled p.r.n. cough/wheezing. 6. Losartan 25 mg p.o. daily. 7. Albuterol 1 puff inhaled daily p.r.n. wheezing. 8. Nitroglycerin 0.6 mg patch daily. 9. Flomax 0.4 mg p.o. daily. 10. Triamcinolone acetonide 0.1% apply topically p.r.n. 11. Lasix 20 mg p.o. daily. DISCONTINUE MEDICATIONS: 1. Xanax 0.5 mg p.o. t.i.d. p.r.n. anxiety. 2. Gabapentin 300 mg p.o. t.i.d. HISTORY OF PRESENT ILLNESS/HOSPITAL COURSE: The patient is an 83-year-old male with few admissions in the last month, he was in for difficulty to arouse by his family in the middle of the afternoon. The patient states that he did not sleep well overnight requiring him to take a sleep aid medication on top of his gabapentin and Xanax. The patient woke groggy. His symptoms had resolved by the time we interviewed him in the emergency department. Otherwise, the patient had a CT scan for left-sided facial droop that is known to him and his family. There were no new CT findings. We discontinued his gabapentin and Xanax in hopes that he would not have continued encephalopathic episodes. We encouraged him not to take sleep aid medications as well. The patient also had lower extremity edema x2 days. He ran out of his Lasix, so on discharge, we refilled his medications. He does need to follow up with his primary care provider. He did have a UA, TSH, procal, ammonia, which were all within normal limits. His blood cultures had no growth at 5 days. He did not have an elevated white blood cell count. His sodium was 140. BNP was mildly elevated at 528. TSH within normal limits. Procal 0.04. The patient did have an episode of urinary retention requiring catheter placement. This could have been due to a sleep aid medication that he took as it had anticholinergic properties. By the time the patient was discharged, he was voiding well on his own. DISPOSITION: Stable. DISCHARGE INSTRUCTIONS: 1. Location: [facility]. 2. Diet: Heart healthy. 3. Activity: Ad parth. 4. Followup: Follow up with Dr. Brandan Tavares, primary care physician within 7 days. Job ID: [id number]
== END 2019-06-14 15:32 | disposition home or self-care (01) ==
LOC: ERS 12:02 → 2NO 16:33
PROVIDERS: ADMIT Family Medicine; ATTEND Family Medicine
DX: G93.40 Encephalopathy, unspecified (principal); I48.91 Unspecified atrial fibrillation; I13.0 Hypertensive heart and chronic kidney disease with heart failure and stage 1 through stage 4 chronic kidney disease, or unspecified chronic kidney disease; N18.3 Chronic kidney disease, stage 3 (moderate); I50.30 Unspecified diastolic (congestive) heart failure; E78.5 Hyperlipidemia, unspecified; J44.9 Chronic obstructive pulmonary disease, unspecified; N40.0 Benign prostatic hyperplasia without lower urinary tract symptoms; L89.612 Pressure ulcer of right heel, stage 2; Z79.01 Long term (current) use of anticoagulants; Z79.899 Other long term (current) drug therapy; Z86.711 Personal history of pulmonary embolism; Z86.718 Personal history of other venous thrombosis and embolism; Z87.891 Personal history of nicotine dependence; Z95.1 Presence of aortocoronary bypass graft
CPT/HCPCS: 70450; 71045; 80048; 81001; 82140; 83605; 83880; 84145; 84484 ×2; 85025; 85610; 85730; 87040; 87804 ×2; 93005; 94640; 94760; 96361; 96365; 96367; 96375 ×2; 97139; 97530; 99285; G0378 ×2; 36415; 51798; 80053; 84443; J0692; J1956; J2405; J2930; J7620

== ENCOUNTER 2019-06-18 19:41 | Observation (INO) | payer MEDICARE ==
[~2019-06-18 19:41] MED LIST: Iopamidol-370 76% 500 ML 1 ML ONE
[2019-06-18] MEDS ORDERED: Nitroglycerin 2% Ointment 1 INCH/1 GM Packet ONE (20:28)
--- NOTE | 2019-06-18 20:30 | RAD ---
PORTABLE CHEST ONE VIEW: 06/18/19 at 7:54 p.m. HISTORY: Chest pain. COMPARISON: 06/13/19. FINDINGS/IMPRESSION: There are changes of median sternotomy. Heart size is stable. There is consolidation of the left lung base with a left effusion. There is a plate of linear atelectasis in the right mid lung. No pneumoth oraces are identified. POS: OFF
[2019-06-18 20:39] LABS: #Eosinphils 0.1 thou/uL (0.0-0.7); #Lymphocytes 1.7 thou/uL (1.20-3.40); #Monocytes 0.4 thou/uL (0.11-0.59); #Neutrophils 2.7 thou/uL (1.40-6.50); %Basophils 0.6 % (0.0-1.0); %Lymphocytes 34.7 % (21.0-51.0); %Monocytes 8.5 % (0.0-10.0); %Neutrophils 54.2 % (42.0-75.0); Hemoglobin 10.4 g/dL (14.0-18.0); Mean Corpuscular HGB CONC 31.9 g/dL (32.0-36.0); Mean Corpuscular Hemoglobin 28.9 pg (27.0-31.0); Mean Corpuscular Volume 90.7 fL (78.0-98.0); Mean Platelet Volume 9.7 fL (7.4-10.4); Platelet Count 159 thou/uL (130-400); RBC Distribution Width 16.9 % (11.5-14.5); Red Blood Cell (RBC) Count 3.58 mill/uL (4.70-6.10)
[2019-06-18 21:00] LABS: ALT (SGPT) 21 U/L (8-55); AST (SGOT) 23 U/L (5-34); Albumin 3.3 g/dL (3.4-4.8); Alkaline Phosphatase 86 U/L (40-110); Anion Gap 12 mmol/L (10-20); BUN (Urea Nitrogen) 31 mg/dL (8.4-25.7); Bilirubin, Total 0.4 mg/dL (0.2-1.2); Calc. Creatinine Clearance 0 mL/min (70-130); Calcium 8.6 mg/dL (7.8-10.44); Carbon Dioxide 28 mmol/L (23-31); Chloride 105 mmol/L (98-107); Estimated GFR-MDRD 41; Globulin 2.5 g/dL (2.4-3.5); Glucose 107 mg/dL (83-110); Protein, Total 5.8 g/dL (5.8-8.1); Sodium 141 mmol/L (136-145)
--- NOTE | 2019-06-18 22:52 | CT ---
CT PULMONARY ANGIOGRAM WITH IV CONTRAST AND 3D POSTPROCESSIN06/18/19 HISTORY: Chest pain. Elevated D-dimer. FINDINGS: There is good contrast opacification of the pulmonary arterial vasculature without filling defects to suggest pulmonary embolism. There are vascular calcifications without evidence of aneurysmal dilatat ion of the thoracic aorta. There are small pleural effusions with adjacent atelectatic changes/infilt rates, left greater than right. No pneumothoraces are seen. No pericardial effusion is seen. No pneum othoraces identified. There are degenerative changes of the spine. Upper abdominal tomograms demonstr ate small cysts in the liver. IMPRESSION: No CT evidence of pulmonary embolism. POS: OFF
[2019-06-18] MEDS ORDERED: Lidocaine Viscous Sol 2% 15 ml UD Cup ONE (23:08)
[2019-06-18] MEDS ORDERED: Mag-Al 1200 mg/1200 mg/30 ML UDCUP ONE (23:08)
[2019-06-19 00:12] LABS: Troponin I 0.017 ng/mL (< 0.028)
--- NOTE | 2019-06-19 02:39 | PDOC.FPRHP ---
- History of Present Illness Chief Complaint: Chest Pain History of Present Illness: 83yo CM with h/o CAD s/p CABG, DVT/PE, Afib, HFpEF, COPD, CKDII and recent R Tib /fib fracture and repair presents for stable angina. Patient states he had consider of substernal, pressure, CP radiating to L arm at about 1600. Associated nausea without vomiting, relieved by nitro in ED. No dyspnea, diaphoresis. Does endorse associated acid reflux. Denies fever/chills, cough, abd pain, dysuria or frequency. Known to Dr. Field, Cards. Had stress test in 2019, unsure of results. ED Course: Given nitro, asa. Trops and EKG. - Allergies/Adverse Reactions Allergies Allergy/AdvReac Type Severity Reaction Status Date / Time No Known Allergies Allergy Verified 06/13/19 20:14 - Home Medications Medication Instructions Recorded Confirmed Type Allopurinol 100 mg PO DAILY 12/12/18 06/13/19 History Apixaban [Eliquis] 5 mg PO BID #60 tab 05/15/19 06/13/19 Rx Metoprolol Tartrate [Lopressor] 50 mg PO BID #60 tab 05/15/19 06/13/19 Rx Atorvastatin Calcium 20 mg PO HS 06/07/19 06/13/19 History Mometasone/Formoterol [Dulera 200 2 puff INH PRN PRN 06/07/19 06/13/19 History mcg/5 mcg Inhaler] Losartan Potassium 25 mg PO DAILY 06/13/19 06/13/19 History Albuterol Sulfate [Proventil Hfa] 1 puff INH DAILYPRN PRN inh 06/14/19 Rx Furosemide 20 mg PO DAILY #30 tablet 06/14/19 Rx Nitroglycerin [Nitro-Dur Patch] 1 patch TD DAILY patch 06/14/19 Rx Tamsulosin HCl [Flomax] 0.4 mg PO DAILY cap 06/14/19 Rx Triamcinolone Acetonide 1 applic TOP TID PRN 06/14/19 Rx [Triamcinolone Acetonide 0.1% Lotion] - History PMHx:5 Vessel CABG, 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 denies: palpitation, edema, paroxysmal nocturnal dyspnea, orthopnea Gastrointestinal: reports: nausea. denies: vomiting, diarrhea, constipation, abdominal pain Genitourinary: denies: incontinence, dysuria Skin: denies: rashes - Vital signs BP: 161/81 HR: 59 RR: 18 Tmax: 97.2 Pox: 94% on RA Wt: 83kg - Physical Exam Constitutional: NAD, awake, alert and oriented, well developed HEENT: EOMI, grossly normal vision, grossly normal hearing, MMM Neck: supple, trachea midline Heart: RRR, normal S1/S2, no murmurs/rubs/gallops, pulses present, no edema, other (difficult exam) Lungs: CTAB, no respiratory distress, good air movement, no rales/rhonchi, no wheezing Abdomen: soft, non-tender, bowel sounds present, no masses/distention, no hernias Musculoskeletal: normal structure Neurological: no focal deficit Psychiatric: normal mood and affect, good judgment and insight, intact recent and remote memory FMR H&P: Results - Labs Result Diagrams: 06/18/19 20:08 06/18/19 20:08 Lab results: WBC 5.0 thou/uL (4.8-10.8) 06/18/19 20:08 Hgb 10.4 g/dL (14.0-18.0) L 06/18/19 20:08 Hct 32.5 % (42.0-52.0) L 06/18/19 20:08 MCV 90.7 fL (78.0-98.0) 06/18/19 20:08 Plt Count 159 thou/uL (130-400) 06/18/19 20:08 Neutrophils % 54.2 % (42.0-75.0) 06/18/19 20:08 Sodium 141 mmol/L (136-145) 06/18/19 20:08 Potassium 4.0 mmol/L (3.5-5.1) 06/18/19 20:08 Chloride 105 mmol/L (98-107) 06/18/19 20:08 Carbon Dioxide 28 mmol/L (23-31) 06/18/19 20:08 BUN 31 mg/dL (8.4-25.7) H 06/18/19 20:08 Creatinine 1.60 mg/dL (0.7-1.3) H 06/18/19 20:08 Glucose 107 mg/dL (83-110) 06/18/19 20:08 Calcium 8.6 mg/dL (7.8-10.44) 06/18/19 20:08 Total Bilirubin 0.4 mg/dL (0.2-1.2) 06/18/19 20:08 AST 23 U/L (5-34) 06/18/19 20:08 ALT 21 U/L (8-55) 06/18/19 20:08 Alkaline Phosphatase 86 U/L (40-110) 06/18/19 20:08 Serum Total Protein 5.8 g/dL (5.8-8.1) 06/18/19 20:08 Albumin 3.3 g/dL (3.4-4.8) L 06/18/19 20:08 - Radiology Interpretation CT scan - chest Status: report reviewed by me (negative for PE) FMR H&P: A/P - Problem List (1) Stable angina Current Visit: Yes Status: Acute Code(s): I20.8 - OTHER FORMS OF ANGINA PECTORIS (2) Hx of coronary artery bypass graft Current Visit: Yes Status: Chronic (3) Atrial fibrillation Current Visit: No Status: Chronic Code(s): I48.91 - UNSPECIFIED ATRIAL FIBRILLATION (4) CAD (coronary artery disease) Current Visit: No Status: Chronic Code(s): I25.10 - ATHSCL HEART DISEASE OF [place] CORONARY ARTERY W/O ANG PCTRS Qualifiers: Coronary Disease-Associated Artery/Lesion type: bypass graft (5) CKD (chronic kidney disease), stage III Current Visit: No Status: Chronic Code(s): N18.3 - CHRONIC KIDNEY DISEASE, STAGE 3 (MODERATE) (6) COPD (chronic obstructive pulmonary disease) Current Visit: No Status: Chronic - Plan 83yo CM with h/o CAD s/p 5v CABG, DVT/PE, Afib, HFpEF, BPH, COPD, CKD III, HTN, and recent R tib/fib fracture. #Stable Angina - substernal, pressure, radiating to L arm, relieved by nitro, questionable exertional - Trops at baseline no acute EKG changes - Pt states he does not want to undergo any more stress tests or cardiac caths, records reviewed and previously has refused. Also stated he wished to be chemo code only. Afterwards, paged by nurse who states pt agreeable to cath but no stress and wished to be chem+intubation. - Will try to obtain records from wildlife biology technician, Dr. Field - Cont statin, BB, FOREST-I. Consider imdur or renexa. Cont nitro prn - Consider cardiology consult in AM #CHF, EF 40-45% - no acute exacerbation. Cont home meds #CKD III - At baseline, avoid nephrotoxic meds #Hx of DVT/PE - Continue home eliquis #A-Fib - Continue home meds and anticoagulation #CAD, 5 Vessel CABG, PVD - Continue home meds #BPH - Continue home meds - Required beckford at last hospitalization; voiding without difficult currently #HTN - Continue home meds #HLD - Continue home meds PCP: Jim Code: Chem-Int Diet: NPO IVF: SL VTE: Eliquis Disposition/LOS: Admit to tele obs for stable agina. Anticipate LOS <48hrs. FMR H&P: Upper Level - Pertinent history 83 year old male recently admitted to our service for AMS presents with chest pain onset at 16:00 which lasted for approximately an our and resolved after nitro. Patient described pain as pressure located in left anterior chest that radiated to left arm. This is what prompted him to come to ED. Patient also endorses nausea without emesis and indigestion. Patient denies abdominal pain. Patient with history 5V CABG. Patient sees Dr. Matthew at [facility] for Cardiology. He has not seen him since last stress test. Patient is unable to say when his stress test was performed. He believes it has been done within the last year. Patient does have nitro at home, but he did not think to take it prior to coming to ED. Patient is very adamant that he not have another stress test or cardiac cath, because the stress test "hurt his heart" the last time. He is also of the belief that he is 83 years old and does not want any further interventions at this time. - Pertinent findings General: Pleasant elderly male. No acute distress. Alert and oriented x3. HEENT: MMM Card: Distant heart sounds, but did not appreciate murmur. RRR. Resp: CTA, no acute respiratory distress. Abdomen: Soft, non-tender. Ext: Trace edema bilaterally - Plan Date/Time: 06/19/199 I[place]air, have evaluated this patient and agree with findings/plan as outlined by gallery intern resident. Pertinent changes/additions are listed here. Typical chest pain, likely stable angina - Patient not very active at baseline, but was "moving around" in chair when chest pain started - Nitro relieved the pain; continue nitro PRN - This may represent stable angina; patient with stress test but uncertain of timing. Salesperson Hosiery is at [facility]. - During our discussion with patient, he was very adamant that he did not want a stress test or cardiac cath. He also refused this at previous visit. Nurse called and states that he is now agreeable to a cath but not stress. If patient had stress within last year, he may not need further imaging. - Will obtain records from wildlife biology technician to see when last stress test performed - Troponin at baseline - Patient is 83 years old, he is a chemical code only. Based on the wishes he has portrayed tonight, he may decide against a cardiac cath/may not be a great candidate for CABG should it be necessary. We will get palliative on board to discuss goals of care going forward. - Continue Statin, BB, FOREST-I; if not on these medications, will be sure to add - May benefit from addition of imdur or ranexa - NPO at midnight; possible cardiology consult in AM CHF EF 40-45% - Gentle fluids if needed CKD III - At baseline Hx of DVT/PE - Continue home meds A-Fib - Continue home meds and anticoagulation CAD, 5 Vessel CABG, PVD - Continue home meds BPH - Continue home meds - Required beckford at last hospitalization; urinating fine currently HTN - Continue home meds HLD - Continue home meds DVT PPX: Eliquis Code: Chem-Int Dispo: Obs on telemetry. Anticipate LOS >48 hours.
[2019-06-19 02:59] LABS: Troponin I 0.029 ng/mL (< 0.028)
[2019-06-19 03:45] VITALS: BMI 27.9
[2019-06-19] MEDS ORDERED: Calcium Carbonate 500 MG ChewTAB PO PRN (04:09)
[2019-06-19] MEDS ORDERED: Ondansetron ODT 4 MG TAB PO PRN (05:13)
[2019-06-19] MEDS ORDERED: Ondansetron PF 4 MG/2 ML Vial IVP PRN (05:13)
[2019-06-19] MEDS: Acetaminophen 325 MG TAB PO PRN ×2 (05:32→21:00)
[2019-06-19] MEDS ORDERED: Mometasone/Formoterol 120 PUFF INHALER INH PRN (07:46)
[2019-06-19] MEDS ORDERED: Prevnar 13-Val Conj/PF 0.5 ML SYRINGE IM ONE (09:00)
[2019-06-19] MEDS ORDERED: Apixaban 5 MG TAB PO SCH (09:00)
[2019-06-19] MEDS: Losartan 25 MG TAB PO SCH (09:27)
[2019-06-19] MEDS: Allopurinol 100 MG TAB PO SCH (09:27)
[2019-06-19] MEDS: Furosemide 20 MG TAB PO SCH (09:29)
[2019-06-19] MEDS: Tamsulosin HCl 0.4 MG CAP PO SCH (09:30)
--- NOTE | 2019-06-19 11:37 | HP ---
I have examined the patient and discussed the case with Dr. Jamshid Diaz and agree with his assessment and plan. HISTORY OF PRESENT ILLNESS: Briefly, Mr. Clarke is an 83-year-old white man with a history of CABG, atrial fibrillation, and heart failure with preserved ejection fraction, as well as COPD and CKD 2. He has been having some intermittent chest pain over the last couple of weeks. He had been hospitalized for similar symptoms several days ago, but came back into the ER with chest pain. He is somewhat ambivalent about working this up further with either stress testing or cardiac cath. PHYSICAL EXAMINATION: VITAL SIGNS: Blood pressure is 160/80, heart rate 60, afebrile, room air pulse ox 94%. GENERAL: He is awake, alert, pleasant, no distress. EAR, NOSE, AND THROAT: No erythema or exudate. NECK: Supple. CARDIAC: S4 gallop. No murmur or rub noted. LUNGS: Clear without rales or wheezes. ABDOMEN: Nontender, flat, soft. NEUROLOGIC: No focal deficits. LABORATORY DATA: CBC; white count is 5000, hemoglobin 10.4, hematocrit 32.5 with an MCV of 91. Chemistry; sodium 141, potassium 4, chloride 105, bicarb 28, BUN 31, creatinine 1.60, glucose 107. Troponin x3 are negative. ASSESSMENT: Chest pain in a patient with a history of coronary artery disease. PLAN: Admit, hold further discussion about whether the patient wants stress test versus cardiac cath. Further testing depending on his decision. Job ID: [id number]
--- NOTE | 2019-06-19 18:37 | CON ---
DATE OF CONSULTATION: HISTORY OF PRESENT ILLNESS: This patient is an 83-year-old gentleman, who presents with recurrent chest discomfort. The patient has a long history of coronary artery disease. He is status post coronary artery bypass surgery many years ago. He is followed primarily by Dr. Field. He has previously been in [place] and had a stent put into apparently one of his coronary artery bypass grafts. The patient had a stress test done by Dr. Field not long ago, which apparently revealed scar with no evidence of ischemia. The patient, who has been admitted on several occasions with recurrent chest discomfort. He has declined to undergo repeat cardiac catheterization. The patient presented once again to the emergency room with chest pain. He had been out of his sublingual nitroglycerin tablets. The patient denies having any present chest discomfort. PAST MEDICAL HISTORY: 1. Coronary artery disease. 2. Hypertension. 3. Renal insufficiency. 4. DVT. 5. History of PE. 6. History of atrial fibrillation. 7. COPD. PAST SURGICAL HISTORY: Coronary artery bypass surgery and hemorrhoidectomy. SOCIAL HISTORY: Former smoker. ALLERGIES: NO KNOWN DRUG ALLERGIES. MEDICATIONS: See nursing list. PHYSICAL EXAMINATION: GENERAL: This is a well-developed gentleman, in no acute distress. VITAL SIGNS: With a blood pressure of 141/49. NECK: Showed no jugular venous distention. LUNGS: Clear to auscultation. HEART: Regular rate and rhythm. Normal S1 and S2 with no murmurs. ABDOMEN: Nondistended. EXTREMITIES: Showed no edema. VASCULAR: Radial pulses 2+. LABORATORY DATA: Sodium 141, potassium 4.0, chloride 105, bicarbonate 28, BUN 31, and creatinine 1.6. Troponin is 0.029. White blood cell count 5.0, hemoglobin 10.4, hematocrit 32.5, and platelets are 159. EKG revealed him to have a normal sinus rhythm, left axis deviation, incomplete right bundle-branch block. IMPRESSION: 1. Chest pain suggestive of angina. 2. History of coronary artery bypass surgery. 3. Hypertension. 4. Renal insufficiency. PLAN: This gentleman presents with recurrent chest discomfort. He had been out of his nitroglycerin tablets. From a cardiac standpoint, I will hold his Eliquis. The patient once again remains undecided whether he would like to continue on medical therapy or undergo invasive evaluation. This gentleman would certainly benefit from being on Ranexa. We will start this medication. We will follow this patient with you through his hospitalization. Job ID: [id number] [facility]
[2019-06-19] MEDS ORDERED: Atorvastatin Calcium 20 MG TAB PO SCH (21:00)
--- NOTE | 2019-06-20 06:07 | PDOC.FM ---
- Subjective Subjective: Pt is doing well today. He has no complaints. He was undecided if he would want a heart cath performed after discussion with cards. He had a procedure performed in 11/16 revealing no ischemia. - Objective Vital Signs & Weight: Vital Signs (12 hours) Temp Pulse Resp BP Pulse Ox 06/20/19 04:00 98 F 54 L 16 147/64 H 93 L 06/20/19 00:00 97.8 F 56 L 16 131/57 L 92 L 06/19/19 19:29 98.2 F 55 L 16 128/57 L 92 L Weight Weight 83.37 kg I&O: 06/18/19 06/19/19 06/20/19 06:59 06:59 06:59 Intake Total 60 720 Output Total 395 880 Balance -335 -160 Result Diagrams: 06/18/19 20:08 06/20/19 06:15 EKG Reviewed by me: Yes (Tele: First deg AVB, RBBB, Bradycardia) Phys Exam - Physical Examination Constitutional: NAD HEENT: PERRLA, moist MMs Respiratory: no wheezing, clear to auscultation bilateral Cardiovascular: RRR, no significant murmur Gastrointestinal: soft, non-tender, no distention Musculoskeletal: no edema, pulses present Neurological: normal sensation, moves all 4 limbs Psychiatric: normal affect, A&O x 3 Deviation from normal: poor short term memory Dx/Plan (1) Stable angina Code(s): I20.8 - OTHER FORMS OF ANGINA PECTORIS Status: Acute (2) Hx of coronary artery bypass graft Status: Chronic (3) Open fracture of tibia and fibula, shaft Code(s): S82.209B - UNSP FX SHAFT OF UNSP TIBIA, INIT FOR OPN FX TYPE I/2; S82.409B - UNSP FX SHAFT OF UNSP FIBULA, INIT FOR OPN FX TYPE I/2 Status: Acute Qualifiers: Open fracture type: open type I or II (4) Atrial fibrillation Code(s): I48.91 - UNSPECIFIED ATRIAL FIBRILLATION Status: Chronic (5) CKD (chronic kidney disease), stage III Code(s): N18.3 - CHRONIC KIDNEY DISEASE, STAGE 3 (MODERATE) Status: Chronic (6) COPD (chronic obstructive pulmonary disease) Status: Chronic - Plan Plan: 83yo CM with h/o CAD s/p 5v CABG, DVT/PE, Afib, HFpEF, BPH, COPD, CKD III, HTN, and recent R tib/fib fracture. # Stable Angina - trops neg - Will review Limmoglia's rec's - Discussed surgical intervention vs medical management with pt yesterday who stated he would like to be seen by cardiology to consider surgical intervention. He met with Dr. Wang yesterday and is apparently still undecided. Dr. Wang started Ranexa. Will discuss case with cardiology today. Likely discharge. - Cont statin, BB, FOREST-I, Ranexa. Pt's nitro patch increased 2 visit ago. - Cards consulted, appreciate recs. # CHF, EF 40-45% - no acute exacerbation. Cont home meds # CKD III - At baseline, avoid nephrotoxic meds # Hx of DVT/PE - Held home eliquis by cards # A-Fib - Continue home meds. - Held home eliquis # CAD, 5 Vessel CABG, PVD - Continue home meds # BPH - Continue home meds - Required beckford at last hospitalization; voiding without difficult currently # HTN - Continue home meds # HLD - Continue home meds PCP: Jim Code: Chem Only Diet: NPO IVF: SL VTE: Eliquis Disposition/LOS: Admit to tele obs for stable agina. Anticipate LOS <48hrs.
[2019-06-20 06:39] LABS: Anion Gap 12 mmol/L (10-20); BUN (Urea Nitrogen) 24 mg/dL (8.4-25.7); Calc. Creatinine Clearance 46 mL/min (70-130); Calcium 8.5 mg/dL (7.8-10.44); Carbon Dioxide 27 mmol/L (23-31); Chloride 106 mmol/L (98-107); Estimated GFR-MDRD 46; Glucose 92 mg/dL (83-110); Potassium 4.2 mmol/L (3.5-5.1); Sodium 141 mmol/L (136-145)
[2019-06-20 07:56] VITALS: TEMP 97.5
[2019-06-20] MEDS: Losartan 25 MG TAB PO SCH (09:23)
[2019-06-20] MEDS: Tamsulosin HCl 0.4 MG CAP PO SCH (09:24)
[2019-06-20] MEDS: Allopurinol 100 MG TAB PO SCH (09:24)
[2019-06-20] MEDS: Furosemide 20 MG TAB PO SCH (09:24)
--- NOTE | 2019-06-20 11:47 | PRG ---
DATE OF SERVICE: 06/20/2019 Mr. Clarke is still being ambivalent he wants to know when invasive procedure is done. He will be discharged and his CAD treated medically. Job ID: [id number]
[2019-06-20 11:52] VITALS: BP 165/74
--- NOTE | 2019-06-20 13:40 | PRG ---
DATE OF SERVICE: 06/20/2019 SUBJECTIVE: Mr. Clarke is currently doing well. No current complaints. No chest pain or pressure noted. OBJECTIVE: VITAL SIGNS: Blood pressure 165/74, pulse 53, and temperature 97.5. LUNGS: Clear to auscultation. HEART: Regular rate and rhythm. ABDOMEN: Soft, nontender, nondistended. EXTREMITIES: No edema. PERTINENT LABORATORY DATA: Hemoglobin 10.4. Creatinine 1.45 down from 1.6. IMPRESSION: 1. Angina. 2. Severe coronary artery disease. 3. Status post bypass surgery. 4. Status post stent placement. RECOMMENDATIONS: Review of recent records from Dr. Julius Field's office did suggest LVEF 37% on a recent stress study. He had scar noted in the inferior wall with no ischemia. I did discuss proceeding with angio versus medical therapy. Mr. Clarke is not interested in proceeding with any further aggressive testing. Therefore, we would recommend continued medical therapy. We would recommend increasing Imdur from 0.6 mg/hour to 0.8 mg/hour. Continue Ranexa in addition to beta-sania therapy. We would also resume Eliquis. Otherwise, from my standpoint, it would be okay for discharge. The patient would like to go home. Job ID: [id number]
--- NOTE | 2019-06-21 12:16 | DIS ---
DATE OF ADMISSION: 06/18/2019 DATE OF DISCHARGE: 06/20/2019 RESIDENT: Curt Merritt DO ADMITTING ATTENDING: Shashi Fishman MD DISCHARGE ATTENDING: Shashi Fishman MD CONSULTS: Cardiology Dr. Andrey Harrington. PROCEDURES: 1. CTA of chest thorax on 06/18/2019, revealed no evidence of pulmonary embolism. 2. Chest x-ray on 06/18/2019, revealed heart size stable. No changes of median sternotomy. There is consolidation of the left lung base with a left effusion. There is plate of linear atelectasis in the right middle lung. No pneumothoraces are identified. PRIMARY DIAGNOSES: 1. Stable angina. 2. History of coronary artery bypass graft. 3. Open fracture of tibia and fibular shaft. 4. Atrial fibrillation. 5. Chronic kidney disease stage 3. 6. Chronic obstructive pulmonary disease. SECONDARY DIAGNOSES: 1. Deep vein thrombosis/pulmonary embolism. 2. Heart failure with preserved ejection fraction. 3. BPH. DISCHARGE MEDICATIONS: 1. Allopurinol 100 mg p.o. daily. 2. Eliquis 5 mg p.o. b.i.d. 3. Lopressor 50 mg p.o. b.i.d. 4. Atorvastatin 20 mg p.o. at bedtime. 5. Dulera 200 mcg/5 mcg two puffs inhaled p.r.n. dyspnea. 6. Losartan 25 mg p.o. daily. 7. Albuterol 200 mcg puff inhaled daily p.r.n. wheezing. 8. Nitroglycerin 0.6 mg patch transdermal daily. 9. Flomax 0.4 mg p.o. daily. 10. Triamcinolone 1 application topical t.i.d. p.r.n. 11. Lasix 20 mg p.o. daily. 12. Nitroglycerin 0.3 mg sublingual q.5 minutes p.r.n. chest pain. 13. Ranexa 500 mg p.o. b.i.d. DISCONTINUED MEDICATIONS: None. HISTORY OF PRESENT ILLNESS/HOSPITAL COURSE: Garrett Clarke is an 83-year-old with past medical history significant for coronary artery disease status post 5-vessel CABG and stent placement, DVT/PE, atrial fibrillation, heart failure with preserved ejection fraction, BPH, COPD, CKD 3, hypertension, recent right tib-fib fracture, who presented to the emergency department with stable angina. The patient has been in the emergency department multiple times in the recent past for his stable angina. He states that he begins to feel the chest pain come on and it is not alleviated, so he feels like it should be seen. The patient's principal network architect is Dr. Field and he had not seen his principal network architect since approximately October of 2018. At that time, he had a PET heart scan, which revealed no areas of reversible ischemia. He did not have any other interventions at that time. It appears that his last stent was placed in 2015 and his coronary artery bypass was performed in 1978. The patient continues to have a stable angina and presents to the emergency department, so we touch base with his principal network architect, Dr. Field and set up an appointment for him in the outpatient setting. Cardiology also saw the patient and he was started on Ranexa which will hopefully help with the patient's stable angina. We continued all of his home medications. Of note, the patient does have congestive heart failure. His last echo revealed an EF of 40% to 45%. In terms of his CKD 3, he was at baseline and we avoided all nephrotoxic agents. The patient also had a right tib-fib fracture recently and had not followed up with Orthopedics in a while. PT/OT had seen him multiple times in the past and were unsure of his weight restrictions and so he was only worked within the bed. We reach out to his brother who states that he had an appointment the following week to meet with Dr. Rob to go over his fracture. On the last visit, the patient was discontinued from amitriptyline and gabapentin due to his altered mental status. At that time, he had severe tremors with movement and at rest. By the time we saw him after discontinuing his medications, his tremors had stopped. This could have been secondary to the medications, but it could also be another reason for this. He already had a Neurology appointment next week, so he was going to follow up for that. He also had an appointment the following week to follow up with his primary care provider. The patient understood the plan and the plan was discussed with his brother as well, who he lives with. He states that at home, he and his brother take care of each other as well as having physical therapy come out and take care of them. They have a family friend who comes and helps them daily. She as well helps with pill packing. He does have dementia and is appearing to become problematic, but the patient denies any type of rehab or inpatient facility for rehabilitation. DISPOSITION: Stable. DISCHARGE INSTRUCTIONS: 1. [facility]. 2. Diet, heart healthy, low-sodium. 3. Activity, orthopedic restrictions. 4. Followup: a. Follow up with Dr. Brandan Tavares next week. b. Follow up with Dr. Julius Field next week. c. Follow up with Dr. Davin Rob next week. d. Follow up with Neurology next week. Job ID: [id number]
== END 2019-06-20 14:02 | disposition home health service (06) ==
LOC: ERS 19:41 → 2SE 23:02
PROVIDERS: ADMIT Family Medicine; ATTEND Family Medicine
DX: I25.118 Atherosclerotic heart disease of native coronary artery with other forms of angina pectoris (principal); I48.20 Chronic atrial fibrillation, unspecified; I13.0 Hypertensive heart and chronic kidney disease with heart failure and stage 1 through stage 4 chronic kidney disease, or unspecified chronic kidney disease; N18.3 Chronic kidney disease, stage 3 (moderate); I50.30 Unspecified diastolic (congestive) heart failure; J44.9 Chronic obstructive pulmonary disease, unspecified; N40.0 Benign prostatic hyperplasia without lower urinary tract symptoms; E78.5 Hyperlipidemia, unspecified; K21.9 Gastro-esophageal reflux disease without esophagitis; M1A.20X0 Drug-induced chronic gout, unspecified site, without tophus (tophi); F41.9 Anxiety disorder, unspecified; J90 Pleural effusion, not elsewhere classified; J18.1 Lobar pneumonia, unspecified organism; J98.11 Atelectasis; S82.201B Unspecified fracture of shaft of right tibia, initial encounter for open fracture type I or II; S82.401B Unspecified fracture of shaft of right fibula, initial encounter for open fracture type I or II; Z86.711 Personal history of pulmonary embolism; Z86.718 Personal history of other venous thrombosis and embolism; Z87.891 Personal history of nicotine dependence; Z79.01 Long term (current) use of anticoagulants; Z79.899 Other long term (current) drug therapy; Z95.1 Presence of aortocoronary bypass graft; Z90.3 Acquired absence of stomach [part of]; X58.XXXA Exposure to other specified factors, initial encounter
CPT/HCPCS: 71045; 71275; 80048; 80053; 84484 ×3; 85025; 85379; 90670; 93005; 96374; 97139 ×4; 99285; G0009; G0378 ×3; 36415; 90471; Q0162; Q9967

== ENCOUNTER 2019-07-29 18:39 | Emergency (ER) | payer MEDICARE ==
[2019-07-29 19:39] LABS: #Eosinphils 0.2 thou/uL (0.0-0.7); #Lymphocytes 1.4 thou/uL (1.20-3.40); #Monocytes 0.8 thou/uL (0.11-0.59); #Neutrophils 4.1 thou/uL (1.40-6.50); %Basophils 0.5 % (0.0-1.0); %Eosinophils 3.1 % (0.0-10.0); %Lymphocytes 21.6 % (21.0-51.0); %Monocytes 12.1 % (0.0-10.0); %Neutrophils 62.7 % (42.0-75.0); Hemoglobin 9.3 g/dL (14.0-18.0); Mean Corpuscular HGB CONC 32.2 g/dL (32.0-36.0); Mean Corpuscular Hemoglobin 28.9 pg (27.0-31.0); Mean Corpuscular Volume 89.6 fL (78.0-98.0); Mean Platelet Volume 8.3 fL (7.4-10.4); Platelet Count 164 thou/uL (130-400); RBC Distribution Width 15.6 % (11.5-14.5); White Blood Cell (WBC) Count 6.5 thou/uL (4.8-10.8)
[2019-07-29 19:45] LABS: INR-International Normal Ratio 1.6; PTT 38.5 SEC (22.9-36.1); Prothrombin Time 19.1 SEC (12.0-14.7)
[2019-07-29 20:02] LABS: ALT (SGPT) 13 U/L (8-55); AST (SGOT) 19 U/L (5-34); Albumin 3.1 g/dL (3.4-4.8); Alkaline Phosphatase 71 U/L (40-110); Anion Gap 12 mmol/L (10-20); BUN (Urea Nitrogen) 42 mg/dL (8.4-25.7); Bilirubin, Total 0.4 mg/dL (0.2-1.2); Calc. Creatinine Clearance 0 mL/min (70-130); Calcium 8.4 mg/dL (7.8-10.44); Carbon Dioxide 23 mmol/L (23-31); Chloride 107 mmol/L (98-107); Estimated GFR-MDRD 30; Globulin 2.7 g/dL (2.4-3.5); Glucose 90 mg/dL (83-110); Potassium 4.1 mmol/L (3.5-5.1); Protein, Total 5.8 g/dL (5.8-8.1); Sodium 138 mmol/L (136-145)
== END 2019-07-29 22:35 | disposition home or self-care (01) ==
LOC: ERS 18:39
DX: L89.302 Pressure ulcer of unspecified buttock, stage 2 (principal); L97.419 Non-pressure chronic ulcer of right heel and midfoot with unspecified severity; L97.429 Non-pressure chronic ulcer of left heel and midfoot with unspecified severity; I25.10 Atherosclerotic heart disease of native coronary artery without angina pectoris; E78.5 Hyperlipidemia, unspecified; I10 Essential (primary) hypertension; J44.9 Chronic obstructive pulmonary disease, unspecified; I48.91 Unspecified atrial fibrillation; K21.9 Gastro-esophageal reflux disease without esophagitis; M10.9 Gout, unspecified; F41.9 Anxiety disorder, unspecified; Z87.891 Personal history of nicotine dependence; Z79.899 Other long term (current) drug therapy; Z79.01 Long term (current) use of anticoagulants
CPT/HCPCS: 36415; 80053; 85025; 85610; 85730; 94760

== ENCOUNTER 2019-08-19 17:16 | Inpatient (IN) | payer MEDICARE ==
[2019-08-19 18:30] LABS: #Eosinphils 0.3 thou/uL (0.0-0.7); #Lymphocytes 1.4 thou/uL (1.20-3.40); #Monocytes 0.7 thou/uL (0.11-0.59); #Neutrophils 4.6 thou/uL (1.40-6.50); %Basophils 0.7 % (0.0-1.0); %Eosinophils 3.6 % (0.0-10.0); %Lymphocytes 20.4 % (21.0-51.0); %Monocytes 9.9 % (0.0-10.0); %Neutrophils 65.3 % (42.0-75.0); Hemoglobin 9.2 g/dL (14.0-18.0); Mean Corpuscular HGB CONC 31.9 g/dL (32.0-36.0); Mean Corpuscular Hemoglobin 28.5 pg (27.0-31.0); Mean Corpuscular Volume 89.3 fL (78.0-98.0); Mean Platelet Volume 7.6 fL (7.4-10.4); Platelet Count 267 thou/uL (130-400); RBC Distribution Width 16.1 % (11.5-14.5); Red Blood Cell (RBC) Count 3.23 mill/uL (4.70-6.10)
[2019-08-19 18:47] LABS: Bacteria/HPF None Seen HPF (None Seen); Bilirubin Negative (Negative); Blood, Urine Negative (Negative); Clarity Clear (Clear); Glucose, Urine (Dipstick) Normal (Negative); Leukocyte 25 Leu/uL (Negative); Nitrite Negative (Negative); Protein, Urine (Dipstick) Negative (Neg-Trace); RBC/HPF 0-3 HPF (0-3); Squamous Epithelial None Seen HPF (0-3); Urobilinogen Normal mg/dL (Less than 2); WBC/HPF 0-3 HPF (0-3)
--- NOTE | 2019-08-19 18:50 | CT ---
HEAD CT WITHOUT CONTRAST: Date: 08-19-2019 Comparison: 06-13-2019 History: Slurred speech. Technique: Axial CT imaging at 5 mm intervals from the vertex through the skull base without contrast . FINDINGS: There is mild diffuse cerebral volume loss with associated prominence of the CSF containing spaces. T here is atherosclerotic calcification of the distal vertebral arteries and the cavernous carotid elvira shirley. There is no midline shift, mass effect, or intracranial hemorrhage. IMPRESSION: No acute findings. POS: CHASE
[2019-08-19 18:52] LABS: ALT (SGPT) 15 U/L (8-55); AST (SGOT) 24 U/L (5-34); Albumin 3.2 g/dL (3.4-4.8); Alkaline Phosphatase 79 U/L (40-110); Anion Gap 12 mmol/L (10-20); BUN (Urea Nitrogen) 39 mg/dL (8.4-25.7); Bilirubin, Total 0.4 mg/dL (0.2-1.2); Calc. Creatinine Clearance 0 mL/min (70-130); Calcium 8.8 mg/dL (7.8-10.44); Carbon Dioxide 25 mmol/L (23-31); Chloride 105 mmol/L (98-107); Estimated GFR-MDRD 27; Glucose 111 mg/dL (83-110); Potassium 4.3 mmol/L (3.5-5.1); Protein, Total 6.2 g/dL (5.8-8.1); Sodium 138 mmol/L (136-145)
--- NOTE | 2019-08-19 19:09 | RAD ---
SINGLE VIEW OF THE CHEST: Comparison: 06-18-2019 History: Altered mental status, slurred speech, difficulty swallowing. FINDINGS: Three views of the chest shows a normal sized cardiomediastinal silhouette. Patient is status post CA BG. There is no evidence of consolidation, mass or pleural effusion. Degenerative changes are seen in the spine. IMPRESSION: No evidence of acute cardiopulmonary disease. POS: EAA
[2019-08-19 19:30] LABS: Bilirubin Negative (Negative); Blood, Urine Negative (Negative); Clarity Clear (Clear); Glucose, Urine (Dipstick) Normal (Negative); Leukocyte Negative Leu/uL (Negative); Nitrite Negative (Negative); Protein, Urine (Dipstick) Negative (Neg-Trace); Urobilinogen Normal mg/dL (Less than 2)
[2019-08-19] MEDS ORDERED: HYDROcodone/Acetaminophen 5/325 mg Tablet ONE (19:46)
[2019-08-19] MEDS ORDERED: Acetaminophen 325 MG TAB PO PRN (20:08)
[2019-08-19] MEDS ORDERED: Famotidine 20 MG TAB PO SCH (21:00)
--- NOTE | 2019-08-19 21:35 | HP ---
CHIEF COMPLAINT: Slurred speech, weakness, and tremors. HISTORY OF PRESENT ILLNESS: Mr. Clarke is an 84-year-old male with past medical history of atrial fibrillation, on Xarelto; COPD; hypertension; hyperlipidemia; coronary artery disease; gout, among others, presents to the emergency room with generalized weakness, tremors, slurred speech, and difficulty swallowing for the last 2 days. The patient stated that he is having concern for Parkinson's disease, but he has never been officially diagnosed. Workup in the emergency room, including CT of the brain, no acute findings. The patient appeared dehydrated with elevated creatinine of 2.29, baseline around 1.8. He denies chest pain, nausea, vomiting, fever, or chills. The patient is being admitted to hospital for further management. PHYSICAL EXAMINATION: GENERAL: The patient is awake, alert, having resting tremors, having hard time with speech, slurring and ? aphasia. HEAD AND NECK: Normocephalic, atraumatic. NECK: Supple. CHEST: Fair bilateral air entry. HEART: Irregularly irregular. ABDOMEN: Soft, nontender. Bowel sounds present. NEUROLOGIC: Awake, alert, and oriented x3, moving extremities. Having resting tremors, having had difficulty speech and slurring. PSYCHIATRIC: Unable to assess. EXTREMITIES: No clubbing, no cyanosis. Right ankle is immobilized. GENITOURINARY: No suprapubic tenderness. No flank tenderness. LABORATORY DATA: CT of the brain, as mentioned above in history of present illness. Chest x-ray, no acute finding. BUN is 39, creatinine 2.29, hemoglobin is 9.2. ASSESSMENT AND PLAN: 1. Slurred speech. 2. Aphasia, symptoms have been there for 2 days. 3. Generalized weakness. 4. Tremors. 5. Acute on chronic renal failure. 6. Coronary artery disease. 7. Atrial fibrillation. 8. Anticoagulated. 9. Chronic obstructive pulmonary disease. PLAN: 1. Admit. 2. Telemetry monitoring. 3. Frequent neuro checks. 4. Aspirin. 5. IV fluid hydration. 6. Monitor kidney function and urine output. 7. MRI of the brain. 8. Consult Neurology in a.m. for evaluation and further recommendations. 9. PT/OT/Speech Therapy eval and treat. 10. Reconcile home medications. 11. DVT prophylaxis. Continue home anticoagulants. 12. Expected length of stay, 2 midnights or more. Job ID: [id number]
[2019-08-19 23:52] LABS: Troponin I 0.024 ng/mL (< 0.028)
[2019-08-19] MEDS ORDERED: Dexamethasone 1 MG TAB PO SCH (23:59)
[2019-08-20] MEDS ORDERED: Ondansetron PF 4 MG/2 ML Vial IVP PRN (00:51)
[2019-08-20] MEDS ORDERED: Ondansetron ODT 4 MG TAB SL PRN (00:51)
[2019-08-20] MEDS: Sodium Chloride 0.9% 1,000 ML IV SCH ×2 (01:22→18:39)
[2019-08-20 02:27] LABS: Troponin I 0.012 ng/mL (< 0.028)
[2019-08-20 06:12] VITALS: BMI 27.9
[2019-08-20 06:26] LABS: #Eosinphils 0.2 thou/uL (0.0-0.7); #Lymphocytes 0.9 thou/uL (1.20-3.40); #Monocytes 0.3 thou/uL (0.11-0.59); #Neutrophils 3.9 thou/uL (1.40-6.50); %Basophils 0.2 % (0.0-1.0); %Eosinophils 3.8 % (0.0-10.0); %Lymphocytes 17.6 % (21.0-51.0); %Monocytes 5.7 % (0.0-10.0); %Neutrophils 72.9 % (42.0-75.0); Hemoglobin 8.9 g/dL (14.0-18.0); Mean Corpuscular HGB CONC 31.3 g/dL (32.0-36.0); Mean Corpuscular Hemoglobin 28.2 pg (27.0-31.0); Mean Platelet Volume 7.2 fL (7.4-10.4); Platelet Count 245 thou/uL (130-400); Red Blood Cell (RBC) Count 3.16 mill/uL (4.70-6.10); White Blood Cell (WBC) Count 5.4 thou/uL (4.8-10.8)
[2019-08-20 06:47] LABS: Anion Gap 14 mmol/L (10-20); BUN (Urea Nitrogen) 35 mg/dL (8.4-25.7); Calc. Creatinine Clearance 33 mL/min (70-130); Calcium 8.7 mg/dL (7.8-10.44); Carbon Dioxide 23 mmol/L (23-31); Cardiac Risk 3.7 (Less than 4.5); Chloride 105 mmol/L (98-107); Cholesterol 114 mg/dl (< 200 Desired); Estimated GFR-MDRD 34; Glucose 113 mg/dL (83-110); HDL Cholesterol 31 mg/dL (>60 Neg Risk); LDL Cholesterol, Calculated 65 mg/dL; Potassium 4.3 mmol/L (3.5-5.1); Sodium 138 mmol/L (136-145); Triglycerides 88 mg/dL (Less than 150)
[2019-08-20] MEDS ORDERED: Dexamethasone 1 MG TAB PO SCH (08:00)
[2019-08-20] MEDS ORDERED: Acetaminophen/Codeine 30-300mg Tablet PO PRN (08:37)
[2019-08-20] MEDS ORDERED: Mometasone 200 MCG/Formoterol 5 MCG 120 PUFF INHALER INH PRN (08:37)
[2019-08-20] MEDS ORDERED: Betamethasone Val 0.1% Lotion 60 ML BOT TOP PRN (08:48)
[2019-08-20] MEDS ORDERED: Aspirin 325 mg Enteric Coated Tablet PO SCH (09:00)
[2019-08-20] MEDS ORDERED: Aspirin 81 mg Enteric Coated Tablet PO SCH (09:00)
[2019-08-20] MEDS ORDERED: Albuterol Sulfate 2.5 mg/3 ml Neb NEB PRN (09:00)
[2019-08-20] MEDS: Tamsulosin HCl 0.4 MG CAP PO SCH ×2 (09:32→21:18)
[2019-08-20] MEDS: Metoprolol Tartrate 25 MG TAB PO SCH ×2 (09:32→21:18)
--- NOTE | 2019-08-20 11:06 | MRI ---
Exam: Brain MRI without contrast HISTORY: Stroke COMPARISON: None FINDINGS: Examination is limited due to motion degradation on multiple sequences Calvarial marrow signal intensity: Appropriate T1 signal Gradient echo sequence: No hemorrhage Brain parenchyma: No mass, mass effect or midline shift. Brain volume, age-appropriate. Cortical correia-white matter differentiation: Preserved Restricted diffusion: Central arterial flow voids are maintained. Absent restricted diffusion White matter signal intensities: T2, FLAIR white matter hyperintensities due to chronic small vessel ischemic changes Sinuses: Adequate aeration of the paranasal sinuses and mastoid air cells. IMPRESSION: 1. Limited evaluation due to motion degradation 2. Absent restricted diffusion. No acute infarct 3. Age-appropriate atrophy. Confluent T2 and FLAIR white matter hyperintensities due to chronic small vessel ischemic change
--- NOTE | 2019-08-20 12:51 | CON ---
DATE OF CONSULTATION: CHIEF COMPLAINT: Slurred speech, weakness, and increased frequency of tremors. HISTORY OF PRESENT ILLNESS: Mr. Clarke is an 84-year-old male with medical history significant for atrial fibrillation, chronic obstructive pulmonary disease, hyperlipidemia, hypertension, coronary artery disease, and gout, presented to the emergency room with generalized weakness and increased frequency of tremors with slurred speech and difficulty swallowing for the last 2 days. There is a concern about Parkinson disease. Head CT was done, which it did not reveal any acute intraperitoneal pathology. The patient was dehydrated with an elevated creatinine of 2.29, so he was given intravenous fluids. The patient denies any focal weakness, nausea, vomiting, headache, tinnitus, fever, or chills. Hospitalist ROS - Review of Systems Constitutional: denies: fever, chills, sweats, weakness, malaise, other Eyes: denies: pain, vision change, conjunctivae inflammation, eyelid inflammation, redness, other ENT: denies: ear pain, ear discharge, nose pain, nose discharge, nose congestion , mouth pain, mouth swelling, throat pain, throat swelling, other Respiratory: denies: cough, dry, shortness of breath, hemoptysis, SOB with excertion, pleuritic pain, sputum, wheezing, other Cardiovascular: denies: chest pain, palpitations, orthopnea, paroxysmal noc. dyspnea, edema, light headedness, other Gastrointestinal: denies: nausea, vomiting, abdominal pain, diarrhea, constipation, melena, hematochezia, other Genitourinary: denies: dysuria, frequency, incontinence, hematuria, retention, other Skin: denies: rash, lesions, malka, bruising, other Neurological: reports: weakness Other: tremors - Medication Medications: Active Medications Generic Name Dose Route Start Last Admin Trade Name Freq PRN Reason Stop Dose Admin Aspirin 81 mg 08/20/19 09:00 08/20/19 09:31 Ecotrin PO 81 mg DAILY LOLA Administration Dexamethasone 2 mg 08/20/19 08:00 08/20/19 09:31 Decadron PO 2 mg BID-WM LOLA Administration Sodium Chloride 1,000 mls @ 75 mls/hr 08/19/19 20:15 08/20/19 01:22 Normal Saline 0.9% IV 1,000 mls .[id number] LOLA Administration Metoprolol Tartrate 25 mg 08/20/19 09:00 08/20/19 09:32 Lopressor PO 25 mg BID LOLA Administration Pantoprazole Sodium 40 mg 08/20/19 09:00 08/20/19 09:32 Protonix PO 40 mg BID LOLA Administration Ranolazine 500 mg 08/20/19 09:00 08/20/19 09:31 Ranexa PO 500 mg BID LOLA Administration Tamsulosin HCl 0.4 mg 08/20/19 09:00 08/20/19 09:32 Flomax PO 0.4 mg BID LOLA Administration Hospitalist History - Past Surgical History Past Surgical History: reports: CABG (x 5 >30 years ago), Other (Surgery for right Tib/Fib fracture >40 years ago, recurring fracture for which he had surgery in 03/2019.) - Social History Alcohol: reports: None Drugs: reports: none Hospitalist Results - Labs Result Diagrams: 08/20/19 06:19 08/20/19 06:19 Lab results: WBC 5.4 thou/uL (4.8-10.8) 08/20/19 06:19 Hgb 8.9 g/dL (14.0-18.0) L 08/20/19 06:19 Hct 28.4 % (42.0-52.0) L 08/20/19 06:19 MCV 90.0 fL (78.0-98.0) 08/20/19 06:19 Plt Count 245 thou/uL (130-400) 08/20/19 06:19 Neutrophils % 72.9 % (42.0-75.0) 08/20/19 06:19 Sodium 138 mmol/L (136-145) 08/20/19 06:19 Potassium 4.3 mmol/L (3.5-5.1) 08/20/19 06:19 Chloride 105 mmol/L (98-107) 08/20/19 06:19 Carbon Dioxide 23 mmol/L (23-31) 08/20/19 06:19 BUN 35 mg/dL (8.4-25.7) H 08/20/19 06:19 Creatinine 1.90 mg/dL (0.7-1.3) H 08/20/19 06:19 Glucose 113 mg/dL (83-110) H 08/20/19 06:19 Calcium 8.7 mg/dL (7.8-10.44) 08/20/19 06:19 Total Bilirubin 0.4 mg/dL (0.2-1.2) 08/19/19 18:21 AST 24 U/L (5-34) 08/19/19 18:21 ALT 15 U/L (8-55) 08/19/19 18:21 Alkaline Phosphatase 79 U/L (40-110) 08/19/19 18:21 Troponin I 0.012 ng/mL (< 0.028) 08/20/19 01:56 Serum Total Protein 6.2 g/dL (5.8-8.1) 08/19/19 18:21 Albumin 3.2 g/dL (3.4-4.8) L 08/19/19 18:21 Urine Ketones Negative mg/dL (Negative) 08/19/19 19:08 Urine Blood Negative (Negative) 08/19/19 19:08 Urine Nitrite Negative (Negative) 08/19/19 19:08 Ur Leukocyte Esterase Negative Janice/uL (Negative) 08/19/19 19:08 Urine RBC 0-3 HPF (0-3) 08/19/19 18:27 Urine WBC 0-3 HPF (0-3) 08/19/19 18:27 Ur Squamous Epith Cells None Seen HPF (0-3) 08/19/19 18:27 Urine Bacteria None Seen HPF (None Seen) 08/19/19 18:27 - Radiology Interpretation MRI - head Additional Comment: No acure intracranial pathology PHYSICAL EXAMINATION: - Exam General Appearance: awake alert Eye: PERRL, anicteric sclera ENT: normocephalic atraumatic, no oropharyngeal lesions Neck: supple, symmetric, no JVD, no thyromegaly, no lymphadenopathy Heart: RRR, no murmur, no gallops, no rubs, normal peripheral pulses Respiratory: CTAB Gastrointestinal: soft Extremities: no cyanosis Psychiatric: normal affect NEUROLOGICAL: The patient is alert and oriented to person, place, and time. He follows commands appropriately. The speech is slurred, but able to follow commands appropriately. Cranial nerves 2 through 12 are intact. Muscle tone is increased. Bulk are normal. Positive resting tremor with increased frequency in the left upper extremity. Gait not tested because of the patient's safety reasons. Reflexes symmetric bilaterally. Sensory, withdraws to pinprick bilaterally. Strength 4/ 5 bilaterally. DIAGNOSTIC STUDIES: Data reviewed. I reviewed the CT scan, which did not reveal any acute intracranial pathology. MRI of the brain did not show any acute intracranial process. Chest x-ray did not reveal any acute finding. ASSESSMENT: Mr. Clarke is an 84-year-old with multiple comorbidities, consulted for slurred speech, weakness, and tremors, most likely early-onset Parkinson disease, which requires outpatient management. Low concern for acute intracranial event, and MRI of the brain has been negative. PLAN: 1. MRI of the brain reviewed, which did not reveal any acute intracranial pathology. 2. Neuro checks every 4 hours. 3. Formal speech evaluation since the patient reports difficulty in swallowing. 4. Continue home medications. 5. Continue medical management per primary team. 6. PT/OT evaluation. 7. Follow up with outpatient neurology for further evaluation and management of Parkinson disease. 8. No further recommendations from neurological standpoint. Thank you for the consult. Job ID: [id number] MTDD
--- NOTE | 2019-08-20 13:29 | PDOC.HHP ---
Hospitalist ROS - Review of Systems Constitutional: denies: fever, chills, sweats, weakness, malaise, other Eyes: denies: pain, vision change, conjunctivae inflammation, eyelid inflammation, redness, other ENT: denies: ear pain, ear discharge, nose pain, nose discharge, nose congestion , mouth pain, mouth swelling, throat pain, throat swelling, other Respiratory: denies: cough, dry, shortness of breath, hemoptysis, SOB with excertion, pleuritic pain, sputum, wheezing, other Cardiovascular: denies: chest pain, palpitations, orthopnea, paroxysmal noc. dyspnea, edema, light headedness, other Gastrointestinal: denies: nausea, vomiting, abdominal pain, diarrhea, constipation, melena, hematochezia, other Genitourinary: denies: dysuria, frequency, incontinence, hematuria, retention, other Skin: denies: rash, lesions, malka, bruising, other Neurological: reports: weakness Other: tremors - Medication Medications: Active Medications Generic Name Dose Route Start Last Admin Trade Name Niravq PRN Reason Stop Dose Admin Aspirin 81 mg 08/20/19 09:00 08/20/19 09:31 Ecotrin PO 81 mg DAILY LOLA Administration Dexamethasone 2 mg 08/20/19 08:00 08/20/19 09:31 Decadron PO 2 mg BID-WM LOLA Administration Sodium Chloride 1,000 mls @ 75 mls/hr 08/19/19 20:15 08/20/19 01:22 Normal Saline 0.9% IV 1,000 mls .[id number] LOLA Administration Metoprolol Tartrate 25 mg 08/20/19 09:00 08/20/19 09:32 Lopressor PO 25 mg BID LOLA Administration Pantoprazole Sodium 40 mg 08/20/19 09:00 08/20/19 09:32 Protonix PO 40 mg BID LOLA Administration Ranolazine 500 mg 08/20/19 09:00 08/20/19 09:31 Ranexa PO 500 mg BID LOLA Administration Tamsulosin HCl 0.4 mg 08/20/19 09:00 08/20/19 09:32 Flomax PO 0.4 mg BID LOLA Administration Hospitalist History - Past Surgical History Past Surgical History: reports: CABG (x 5 >30 years ago), Other (Surgery for right Tib/Fib fracture >40 years ago, recurring fracture for which he had surgery in 03/2019.) - Social History Alcohol: reports: None Drugs: reports: none - Exam General Appearance: awake alert Eye: PERRL, anicteric sclera ENT: normocephalic atraumatic, no oropharyngeal lesions Neck: supple, symmetric, no JVD, no thyromegaly, no lymphadenopathy Heart: RRR, no murmur, no gallops, no rubs, normal peripheral pulses Respiratory: CTAB Gastrointestinal: soft Extremities: no cyanosis Neurological: cranial nerve grossly intact, no weakness, no focal deficits Musculoskeletal: no muscle wasting, generalized weakness Psychiatric: normal affect Hospitalist Results - Labs Result Diagrams: 08/20/19 06:19 08/20/19 06:19 Lab results: WBC 5.4 thou/uL (4.8-10.8) 08/20/19 06:19 Hgb 8.9 g/dL (14.0-18.0) L 08/20/19 06:19 Hct 28.4 % (42.0-52.0) L 08/20/19 06:19 MCV 90.0 fL (78.0-98.0) 08/20/19 06:19 Plt Count 245 thou/uL (130-400) 08/20/19 06:19 Neutrophils % 72.9 % (42.0-75.0) 08/20/19 06:19 Sodium 138 mmol/L (136-145) 08/20/19 06:19 Potassium 4.3 mmol/L (3.5-5.1) 08/20/19 06:19 Chloride 105 mmol/L (98-107) 08/20/19 06:19 Carbon Dioxide 23 mmol/L (23-31) 08/20/19 06:19 BUN 35 mg/dL (8.4-25.7) H 08/20/19 06:19 Creatinine 1.90 mg/dL (0.7-1.3) H 08/20/19 06:19 Glucose 113 mg/dL (83-110) H 08/20/19 06:19 Calcium 8.7 mg/dL (7.8-10.44) 08/20/19 06:19 Total Bilirubin 0.4 mg/dL (0.2-1.2) 08/19/19 18:21 AST 24 U/L (5-34) 08/19/19 18:21 ALT 15 U/L (8-55) 08/19/19 18:21 Alkaline Phosphatase 79 U/L (40-110) 08/19/19 18:21 Troponin I 0.012 ng/mL (< 0.028) 08/20/19 01:56 Serum Total Protein 6.2 g/dL (5.8-8.1) 08/19/19 18:21 Albumin 3.2 g/dL (3.4-4.8) L 08/19/19 18:21 Urine Ketones Negative mg/dL (Negative) 08/19/19 19:08 Urine Blood Negative (Negative) 08/19/19 19:08 Urine Nitrite Negative (Negative) 08/19/19 19:08 Ur Leukocyte Esterase Negative Janice/uL (Negative) 08/19/19 19:08 Urine RBC 0-3 HPF (0-3) 08/19/19 18:27 Urine WBC 0-3 HPF (0-3) 08/19/19 18:27 Ur Squamous Epith Cells None Seen HPF (0-3) 08/19/19 18:27 Urine Bacteria None Seen HPF (None Seen) 08/19/19 18:27 - Radiology Interpretation MRI - head Additional Comment: No acure intracranial pathology
[2019-08-20] MEDS ORDERED: Atorvastatin Calcium 20 MG TAB PO SCH (21:00)
[2019-08-20] MEDS ORDERED: Melatonin 3 MG TAB PO PRN (21:01)
[2019-08-20] MEDS ORDERED: Sodium Chloride 0.9% 1,000 ML IV SCH (21:02)
--- NOTE | 2019-08-20 21:03 | PDOC.HOSPP ---
- Subjective Encounter Date: 08/20/19 Encounter Time: 19:00 Subjective: Patient seen and examined for AMS/Gen weakness. Mentation improving. No new focal deficits. No new complaints. No overnight events - Objective Vital Signs & Weight: Vital Signs (12 hours) Temp Pulse Pulse Pulse Resp BP BP 08/20/19 19:00 97.1 F L 68 20 08/20/19 15:23 98.5 F 63 20 08/20/19 13:54 65 69 165/89 H 170/57 H 08/20/19 11:48 65 69 165/89 H 170/57 H 08/20/19 11:35 98.3 F 66 20 BP Pulse Ox 08/20/19 19:00 144/71 H 96 08/20/19 15:23 147/69 H 96 08/20/19 13:54 08/20/19 11:48 08/20/19 11:35 165/89 H 96 Weight Admit Weight 178 lb 9.6 oz Weight 178 lb 9.6 oz I&O: 08/19/19 08/20/19 08/21/19 06:59 06:59 06:59 Intake Total 775 1030 Output Total 725 500 Balance 50 530 Result Diagrams: 08/21/19 04:32 08/21/19 04:32 Additional Labs: Laboratory Tests 08/19/19 08/20/19 18:21 06:19 Creatinine 2.29 H 1.90 H Radiology Reviewed by me: Yes (MRI brain - no CVA) EKG Reviewed by me: Yes (Tele SR) Hospitalist ROS - Review of Systems Respiratory: denies: cough, dry, shortness of breath, hemoptysis, SOB with excertion, pleuritic pain, sputum, wheezing, other Cardiovascular: denies: chest pain, palpitations, orthopnea, paroxysmal noc. dyspnea, edema, light headedness, other - Medication Medications: Active Medications Generic Name Dose Route Start Last Admin Trade Name Freq PRN Reason Stop Dose Admin Metoprolol Tartrate 25 mg 08/20/19 09:00 08/20/19 09:32 Lopressor PO 25 mg BID LOLA Administration Pantoprazole Sodium 40 mg 08/20/19 09:00 08/20/19 09:32 Protonix PO 40 mg BID LOLA Administration Ranolazine 500 mg 08/20/19 09:00 08/20/19 09:31 Ranexa PO 500 mg BID LOLA Administration Tamsulosin HCl 0.4 mg 08/20/19 09:00 08/20/19 09:32 Flomax PO 0.4 mg BID LOLA Administration - Exam General Appearance: NAD Neck: supple, symmetric, no JVD, no thyromegaly Heart: RRR, no gallops, no rubs, normal peripheral pulses Respiratory: no wheezes, no rales, no ronchi, normal chest expansion Gastrointestinal: soft, non-tender, non-distended, no guarding, no rigidity Extremities: no cyanosis Neurological: no new deficit Psychiatric: normal affect, A&O x 3 Hosp A/P - Plan PT/OT Toxic Metabolic encephalopathy/Gen weakness - multifactorial - POA MALKA on CKD 3 ?Early Parkinson disease causing tremors Par Afib - on Eliquis CAD - follows Dr Arora HTN HLD COPD PLAN: Resume home meds MRI brain - no CVA Renal function improving. Cont IVF Reduce Eliquis dose due to high risk of bleeding - Pt meets criteria for 2.5 mg BID AM labs Cont other meds Neuro input appreciated DPOA - brother, Full code PT/OT/ST
[2019-08-20] MEDS: Apixaban 2.5 MG TAB PO SCH (21:16)
[2019-08-21 04:51] LABS: Hemoglobin 8.6 g/dL (14.0-18.0); Platelet Count 229 thou/uL (130-400)
[2019-08-21] MEDS ORDERED: Cyanocobalamin (Vitamin B-12) 1,000 MCG TAB PO SCH (09:00)
[2019-08-21] MEDS ORDERED: Allopurinol 100 MG TAB PO SCH (09:00)
[2019-08-21] MEDS ORDERED: Folic Acid 1 MG TAB PO SCH (09:00)
[2019-08-21] MEDS: Apixaban 2.5 MG TAB PO SCH (09:54)
[2019-08-21] MEDS: Tamsulosin HCl 0.4 MG CAP PO SCH (09:54)
[2019-08-21] MEDS: Metoprolol Tartrate 25 MG TAB PO SCH (10:46)
[2019-08-21 11:57] VITALS: BP 143/70; TEMP 98.2
--- NOTE | 2019-08-21 17:30 | DIS ---
DATE OF ADMISSION: 08/19/2019 DATE OF DISCHARGE: 08/21/2019 DISCHARGE DISPOSITION: Home. FOLLOWUP: 1. Follow up with primary care physician, Dr. Brandan Tavares in 1 week. 2. Follow up with Cardiology, Dr. Julius Field and Neurology, Dr. Simons in 1 to 2 weeks. DISCHARGE MEDICATIONS: Lasix has been changed to p.r.n. The patient was advised to take vitamin B12 and folic acid. All other home medications were left unchanged. PHYSICAL EXAMINATION: GENERAL: The patient was seen and examined on the day of discharge. He denies any new complaints. VITAL SIGNS: On the day of discharge showed temperature 98.2, pulse rate of 58, respirations of 16, blood pressure of 143/70 with O2 saturation 98% on room air. SIGNIFICANT LABORATORY DATA: Creatinine on admission was 2.29, at discharge was 1.45. Urinalysis was negative. Urine cultures were negative. MRI of the brain was negative for acute CVA. It showed age appropriate atrophy. Chest x-ray was negative for infiltrate. BRIEF HOSPITAL COURSE: The patient is an 84-year-old male with coronary artery disease, paroxysmal atrial fibrillation, on anticoagulation; hypertension and hyperlipidemia, presented to the emergency room with generalized weakness along with slurring of speech and tremors. Please refer to the history and physical by Dr. Lyn for further details. The patient was admitted to the hospital with a diagnosis of suspected CVA. His MRI of the brain was negative for acute CVA. He was evaluated by Neurology, Dr. Ramsey. His symptoms are probably due to early-onset Parkinson disease per Neurology. He was advised to follow up with Neurology as outpatient. He also had acute kidney injury that improved with IV hydration. He was advised to take Lasix as needed rather than taking every day. He will also benefit from reducing Eliquis to 2.5 mg b.i.d. due to advanced age. He was advised to discuss with Dr. Field regarding this. He appears stable for discharge. FINAL DIAGNOSES: 1. Toxic metabolic encephalopathy/generalized weakness, multifactorial. 2. Acute kidney injury on chronic kidney disease, stage 3. 3. Suspected early Parkinson disease causing tremors. 4. Paroxysmal atrial fibrillation, on anticoagulation. 5. Coronary artery disease. 6. Hypertension. 7. Hyperlipidemia. 8. Chronic obstructive pulmonary disease. 9. Chronic anemia suspected due to nutritional deficiency. 10. Physical deconditioning. TIME SPENT: Total time coordinating the discharge of this patient was 37 minutes. Job ID: [id number]
--- NOTE | 2019-08-23 14:08 | EKG ---
Test Reason : Blood Pressure : / mmHG Vent. Rate : 062 BPM Atrial Rate : 066 BPM P-R Int : 000 ms QRS Dur : 148 ms QT Int : 484 ms P-R-T Axes : 000 -60 013 degrees QTc Int : 491 ms Wide QRS rhythm Left axis deviation Right bundle branch block Inferior infarct , age undetermined Abnormal ECG Confirmed by ALETHA LOPEZ ([id number]), material expeditor DANIEL TINEO ([id number]) on 08/23/2019 2:07:47 PM Referred By: Confirmed By:ALETHA LOPEZ
== END 2019-08-21 15:54 | disposition home health service (06) | DRG 682 ==
LOC: ERS 17:16 → 2SE 22:50
PROVIDERS: ADMIT Internal Medicine; ATTEND Internal Medicine
DX: N17.9 Acute kidney failure, unspecified (principal); G92 Toxic encephalopathy; N18.3 Chronic kidney disease, stage 3 (moderate); I12.9 Hypertensive chronic kidney disease with stage 1 through stage 4 chronic kidney disease, or unspecified chronic kidney disease; G20 Parkinson's disease; I48.0 Paroxysmal atrial fibrillation; I25.10 Atherosclerotic heart disease of native coronary artery without angina pectoris; E78.5 Hyperlipidemia, unspecified; J44.9 Chronic obstructive pulmonary disease, unspecified; D53.9 Nutritional anemia, unspecified; R53.81 Other malaise; Z79.01 Long term (current) use of anticoagulants
CPT/HCPCS: 36415; 70450; 70551; 71045; 80048; 80053; 80061; 81003; 81015; 82565; 84484; 85014; 85018; 85025; 85049; 87086; 93005; J8540

== ENCOUNTER 2019-09-01 16:50 | Observation (INO) | payer MEDICARE ==
[2019-09-01] MEDS ORDERED: Nitroglycerin 2% Ointment 1 INCH/1 GM Packet ONE (17:09)
[2019-09-01 17:45] LABS: #Basophils 0.1 thou/uL (0.0-0.2); #Eosinphils 0.2 thou/uL (0.0-0.7); #Monocytes 0.5 thou/uL (0.11-0.59); #Neutrophils 5.1 thou/uL (1.40-6.50); %Basophils 1.1 % (0.0-1.0); %Eosinophils 2.7 % (0.0-10.0); %Lymphocytes 14.8 % (21.0-51.0); %Monocytes 6.7 % (0.0-10.0); %Neutrophils 74.8 % (42.0-75.0); Hemoglobin 9.9 g/dL (14.0-18.0); Mean Corpuscular HGB CONC 32.2 g/dL (32.0-36.0); Mean Corpuscular Hemoglobin 28.8 pg (27.0-31.0); Mean Corpuscular Volume 89.5 fL (78.0-98.0); Mean Platelet Volume 9.3 fL (7.4-10.4); Platelet Count 192 thou/uL (130-400); RBC Distribution Width 16.7 % (11.5-14.5); Red Blood Cell (RBC) Count 3.43 mill/uL (4.70-6.10); White Blood Cell (WBC) Count 6.8 thou/uL (4.8-10.8)
[2019-09-01 17:45] LABS: Bilirubin Negative (Negative); Blood, Urine Small (Negative); Glucose, Urine (Dipstick) Negative (Negative); Leukocyte Trace (Negative); Nitrite Negative (Negative); Protein, Urine (Dipstick) Negative (Neg-Trace); Urobilinogen 0.2 mg/dL (Less than 2)
[2019-09-01 17:52] LABS: Squamous Epithelial None Seen HPF (0-3); WBC/HPF 0-3 HPF (0-3); Yeast-Hyphae Rare HPF (None Seen)
[2019-09-01 17:54] LABS: Bacteria/HPF 1+ HPF (None Seen)
[2019-09-01 17:57] LABS: Clarity Hazy (Clear)
[2019-09-01 17:58] LABS: Yeast-Budding 2+ HPF (None Seen)
[2019-09-01 18:08] LABS: ALT (SGPT) 16 U/L (8-55); AST (SGOT) 24 U/L (5-34); Albumin 3.6 g/dL (3.4-4.8); Alkaline Phosphatase 81 U/L (40-110); Anion Gap 15 mmol/L (10-20); BUN (Urea Nitrogen) 28 mg/dL (8.4-25.7); Bilirubin, Total 0.7 mg/dL (0.2-1.2); CK (CPK) 77 U/L (30-200); Calc. Creatinine Clearance 0 mL/min (70-130); Calcium 8.9 mg/dL (7.8-10.44); Carbon Dioxide 26 mmol/L (23-31); Chloride 103 mmol/L (98-107); Estimated GFR-MDRD 26; Glucose 116 mg/dL (83-110); Lipase 5 U/L (8-78); Potassium 4.7 mmol/L (3.5-5.1); Protein, Total 6.6 g/dL (5.8-8.1); Sodium 139 mmol/L (136-145)
--- NOTE | 2019-09-01 18:41 | RAD ---
RADIOGRAPH CHEST 1 VIEW: DATE: HISTORY: 84-year-old male with chest pain. COMPARISON: 08-19-2019 FINDINGS: There are no air space densities, pulmonary edema, pneumothorax, or cardiomegaly. The right lateral costophrenic angle is sharp. Chronic minimal blunting of the left lateral costophrenic angle is uncha nged. There are sternotomy wires. IMPRESSION: No acute cardiopulmonary findings. ivet POS: MERRY
[2019-09-01] MEDS ORDERED: Nitroglycerin 0.4 MG TAB 1 EACH ONE (19:05)
[2019-09-01] MEDS ORDERED: Nitroglycerin 0.4 MG TAB (25 Tab Bottle) PO PRN (19:12)
[2019-09-01] MEDS ORDERED: Bisacodyl 10 MG SUPP PR PRN (20:06)
[2019-09-01] MEDS ORDERED: Senokot S 8.6-50 MG TAB PO PRN (20:06)
[2019-09-01] MEDS ORDERED: Calcium Carbonate 500 MG ChewTAB PO PRN (20:06)
--- NOTE | 2019-09-01 20:35 | PDOC.HHP ---
Hospitalist HPI - History of Present Illness Chest pain History of Present Illness: PCP: Brandan Tavares Business System Manager: Dr. Field The patient is a 84/M with PMH significant for CABG (> 40 yrs ago), HTN, HLD, COPD and atrial fibrillation (on Eliquis) that presents to the ER for the above complaint. The patient reports developing sudden onset of chest pain while watching television, onset 1600, located right chest and moved to left chest, describes as pressure, went from 4/10 to 8/10 at its peak, exacerbated by nothing and relieved by single SL nitro tablet. Denies any associated sob or wheezing. Denies any light headedness. Denies any heart palpitations or lower extremity swelling. Denies any recent fever or chills. The patient reports his LBM was over 1 week, reports some associated abdominal distention and discomfort. Reports flatus. Denies any nausea or vomiting. Took a stool softner with no relief of symptoms. The patient was recently discharged from the hospital for possible CVA. Stroke workup negative. Neurology believes his symptoms of slurred speech and weakness could be attributed to new onset PD. The patient recommendation at that time was to follow up with Neurology for further workup. Follow up with cardiology to determine dosing of his optimal dosing on eliquis. The patient states that he is taking eliquis, but does not know his home dose amount. ED Course: VS 134/58, 74, 18, 96% RA, T 98.9 EKG wide QRS, LAD, RBB, 68bpm Trop 0.020, CK 77, DD 0.59 BNP 330 WBC 6.8 Hgb 9.9 creatinine 2.41 CXR negative for acute cardiopulmonary process Given: 1L NS Nitropaste ASA - refused by patient Allergies: NKDA Home Medications: Unable to verify with patient Hospitalist ROS - Review of Systems Constitutional: denies: fever, chills, malaise Eyes: denies: pain, vision change, conjunctivae inflammation, eyelid inflammation, redness, other ENT: denies: ear pain, ear discharge, nose pain, nose discharge, nose congestion , mouth pain, mouth swelling, throat pain, throat swelling, other Respiratory: denies: cough, dry, shortness of breath, hemoptysis, SOB with excertion, pleuritic pain, sputum, wheezing, other Cardiovascular: reports: chest pain. denies: palpitations, orthopnea, paroxysmal noc. dyspnea, edema, light headedness Gastrointestinal: reports: abdominal pain (discomfort). denies: nausea, vomiting, diarrhea, constipation, hematochezia Genitourinary: denies: dysuria, frequency, incontinence, hematuria, retention, other Musculoskeletal: denies: neck pain, shoulder pain, arm pain, back pain, hand pain, leg pain, foot pain, other Neurological: denies: weakness, numbness, incoordination, change in speech, confusion, seizures, other Hospitalist History - Past Medical History Cardiac: reports: AFIB, CAD, HTN, Hyperlipidemia Pulmonary: reports: COPD Gastrointestinal: reports: Hemorrhoids - Past Surgical History Past Surgical History: reports: CABG (x 5 >30 years ago), Other (Surgery for right Tib/Fib fracture >40 years ago, recurring fracture for which he had surgery in 03/2019.) - Family History Family History: reports: cardiac disorder, cerebrovascular accident - Social History Smoking Status: Former smoker (quit 2-3 years ago) Alcohol: reports: None Drugs: reports: none Living Situation: With Family Occupation: Lives in [place] with brother Activity level: uses cane/walker - Exam General Appearance: NAD, awake alert Eye: anicteric sclera ENT: normocephalic atraumatic Neck: supple, no JVD Heart: no murmur, no gallops, no rubs, normal peripheral pulses, irregular Respiratory: CTAB, no wheezes, no rales, no ronchi, no tachypnea Gastrointestinal: soft, non-tender, normal bowel sounds, no guarding, no rigidity Extremities: no cyanosis Extremities - other findings: splint on right LE Neurological: no focal deficits Psychiatric: normal affect, A&O x 3 Hospitalist Results - Labs Result Diagrams: 09/01/19 17:28 09/01/19 17:28 Lab results: WBC 6.8 thou/uL (4.8-10.8) 09/01/19 17:28 Hgb 9.9 g/dL (14.0-18.0) L 09/01/19 17:28 Hct 30.7 % (42.0-52.0) L 09/01/19 17:28 MCV 89.5 fL (78.0-98.0) 05/03/20 17:28 Plt Count 192 thou/uL (130-400) 09/01/19 17:28 Neutrophils % 74.8 % (42.0-75.0) 09/01/19 17:28 Sodium 139 mmol/L (136-145) 09/01/19 17:28 Potassium 4.7 mmol/L (3.5-5.1) 09/01/19 17:28 Chloride 103 mmol/L (98-107) 09/01/19 17:28 Carbon Dioxide 26 mmol/L (23-31) 09/01/19 17:28 BUN 28 mg/dL (8.4-25.7) H 09/01/19 17:28 Creatinine 2.41 mg/dL (0.7-1.3) H 09/01/19 17:28 Glucose 116 mg/dL (83-110) H 09/01/19 17:28 Calcium 8.9 mg/dL (7.8-10.44) 09/01/19 17:28 Total Bilirubin 0.7 mg/dL (0.2-1.2) 09/01/19 17:28 AST 24 U/L (5-34) 09/01/19 17:28 ALT 16 U/L (8-55) 09/01/19 17:28 Alkaline Phosphatase 81 U/L (40-110) 09/01/19 17:28 Creatine Kinase 77 U/L (30-200) 09/01/19 17:28 Troponin I 0.020 ng/mL (< 0.028) 09/01/19 17:28 B-Natriuretic Peptide 333.0 pg/mL (0-100) H 09/01/19 17:28 Serum Total Protein 6.6 g/dL (5.8-8.1) 09/01/19 17:28 Albumin 3.6 g/dL (3.4-4.8) 09/01/19 17:28 Lipase 5 U/L (8-78) L 09/01/19 17:28 Urine Ketones Negative mg/dL (Negative) 09/01/19 17:30 Urine Blood Small (Negative) A 09/01/19 17:30 Urine Nitrite Negative (Negative) 09/01/19 17:30 Ur Leukocyte Esterase Trace (Negative) H 09/01/19 17:30 Urine RBC 4-6 HPF (0-3) A 09/01/19 17:30 Urine WBC 0-3 HPF (0-3) 09/01/19 17:30 Ur Squamous Epith Cells None Seen HPF (0-3) 09/01/19 17:30 Urine Bacteria 1+ HPF (None Seen) A 09/01/19 17:30 - EKG Interpretation EKG: wide QRS, RBB, atrial fibrillation - Radiology Interpretation Chest x-ray Status: report reviewed by me Hospitalist H&P A/P - Problem (1) Chest pain Code(s): R07.9 - CHEST PAIN, UNSPECIFIED Status: Acute Assessment and Plan: Admit to telemetry floor, observation status Expected stay less than 2 midnights HEART Score 5, DD age adjusted low risk, not hypoxic or tachycardic and on anticoagulation Will continue nitro paste Trend troponins, order echocardiogram (last 03/22/19 in our system, EF 40-45% w / mild MR and sclerotic aortic valve) Patient refuses aspirin and will 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 (4) Paroxysmal A-fib Code(s): I48.0 - PAROXYSMAL ATRIAL FIBRILLATION Status: Chronic Assessment and Plan: Patient is currently rate controlled Patient taking eliquis, recommended to follow up with tag writer to determine lowering dose secondary to age Will restart eliquis 2.5mg BID for now and confirm home medication dosage (5) HTN (hypertension) Code(s): I10 - ESSENTIAL (PRIMARY) HYPERTENSION Status: Chronic Assessment and Plan: Blood pressure mildly elevated for age Will continue to monitor BP Will restart home meds when reconciled by nursing (6) HLD (hyperlipidemia) Code(s): E78.5 - HYPERLIPIDEMIA, UNSPECIFIED Status: Chronic Assessment and Plan: Had FLP on 08/20/2019 Will restart statin when home meds reconciled by nursing. (7) COPD (chronic obstructive pulmonary disease) Status: Chronic Assessment and Plan: Stable, will order nebs prn - Plan Plan: Consult walking program GI prophylaxis SCDs for DVT prophylaxis Full Code MPOA is Ramin Clarke at [phone] Reilly
--- NOTE | 2019-09-01 20:59 | RAD ---
ABDOMEN ONE VIEW: History: Abdominal pain. FINDINGS: The bowel gas pattern is unremarkable. There is fecal material in the colon. There are degenerative c hanges in the spine. Vascular calcifications are present. There are post op changes. IMPRESSION: As above. POS: JOÃO
[2019-09-01 21:07] VITALS: BMI 26.6
[2019-09-01 21:17] LABS: Troponin I 0.022 ng/mL (< 0.028)
[2019-09-01] MEDS: Nitroglycerin 2% Ointment 1 INCH/1 GM Packet TOP SCH (21:57)
[2019-09-01] MEDS: Apixaban 2.5 MG TAB PO SCH (22:02)
[2019-09-01] MEDS: Acetaminophen 325 MG TAB PO PRN (22:04)
[2019-09-01] MEDS ORDERED: Sodium Chloride 0.9% 1,000 ML IV SCH (23:55)
[2019-09-02 00:06] LABS: Troponin I 0.023 ng/mL (< 0.028)
[2019-09-02] MEDS: Acetaminophen 325 MG TAB PO PRN (01:55)
[2019-09-02] MEDS: Nitroglycerin 2% Ointment 1 INCH/1 GM Packet TOP SCH (05:02)
[2019-09-02 05:45] LABS: Band 4 % (5-11); Eosinophils 1 % (0-10); Hemoglobin 8.5 g/dL (14.0-18.0); Hypochromia SLIGHT = 6-15 cells (100X) (0-5/hpf); Lymphocytes 19 % (21-51); MDiff Complete? YES; Mean Corpuscular Hemoglobin 28.6 pg (27.0-31.0); Mean Corpuscular Volume 89.5 fL (78.0-98.0); Mean Platelet Volume 8.8 fL (7.4-10.4); Monocytes 1 % (0-10); Neutrophil 75 % (42-75); Platelet Count 165 thou/uL (130-400); Platelet Morphology Comment Appears Adequate; RBC Distribution Width 16.4 % (11.5-14.5); Red Blood Cell (RBC) Count 2.98 mill/uL (4.70-6.10); White Blood Cell (WBC) Count 4.6 thou/uL (4.8-10.8)
[2019-09-02 05:54] LABS: Anion Gap 13 mmol/L (10-20); BUN (Urea Nitrogen) 27 mg/dL (8.4-25.7); Calc. Creatinine Clearance 32 mL/min (70-130); Calcium 8.2 mg/dL (7.8-10.44); Carbon Dioxide 23 mmol/L (23-31); Chloride 106 mmol/L (98-107); Estimated GFR-MDRD 33; Glucose 84 mg/dL (83-110); Potassium 4.4 mmol/L (3.5-5.1); Sodium 138 mmol/L (136-145)
[2019-09-02 08:02] VITALS: BP 149/78; TEMP 98.1
[2019-09-02] MEDS ORDERED: Fleet Enema 133 ML BOT FS PRN (08:39)
[2019-09-02] MEDS ORDERED: Bisacodyl 10 MG SUPP PR SCH (08:45)
[2019-09-02] MEDS: Apixaban 2.5 MG TAB PO SCH (08:55)
[2019-09-02] MEDS ORDERED: Aspirin 81 mg Enteric Coated Tablet PO SCH (09:00)
--- NOTE | 2019-09-02 17:47 | DIS ---
DATE OF ADMISSION: 09/01/2019 DATE OF DISCHARGE: 09/02/2019 DISCHARGE DISPOSITION: To home. PRIMARY DISCHARGE DIAGNOSIS: Chest pain, which is noncardiac. SECONDARY DISCHARGE DIAGNOSES: 1. History of coronary artery disease with prior coronary artery bypass grafting and stent. 2. Hypertension. 3. Dyslipidemia. 4. Chronic obstructive pulmonary disease. 5. History of chronic atrial fibrillation. PROCEDURES DONE DURING HOSPITALIZATION: Chest x-ray showed no acute cardiopulmonary abnormalities. Abdominal plain one-view x-ray done showed fecal material in the colon. Echo with 2D Doppler showed EF of 50% to 55%. Normal RV size and function. Left atrium was mildly dilated. Structurally normal aortic valve. H and H of 8 and 26, platelet count 165. Admitting BUN and creatinine 28 and 2.4. Discharge BUN and creatinine are 27 and 1.9. Troponin x3 is negative. TSH 0.80. BNP 333. DISCHARGE MEDICATIONS: 1. Allopurinol 100 mg p.o. daily. 2. Tylenol No. 3 q.6 hourly p.r.n. 3. Eliquis 2.5 mg twice daily. 4. Atorvastatin 20 mg p.o. 5. Symbicort inhaler two puffs twice daily. 6. Losartan 25 mg daily. 7. Lopressor 25 mg extended release daily. 8. Protonix 40 mg daily. 9. Nitroglycerin patch 0.4 mg transdermal daily. 10. Flomax 0.4 mg daily. 11. Albuterol inhaler q.6 hourly p.r.n. 12. Vitamin B12 of 1000 mcg p.o. daily. 13. Folic acid 1 mg p.o. daily. 14. Lasix 20 mg daily p.r.n. 15. Ranexa 500 mg p.o. twice daily. ALLERGIES: NO KNOWN DRUG ALLERGIES. DISCHARGE PLAN: The patient to follow up with his primary care physician, Dr. Deandre John, in 1 week. He has a followup appointment to see Dr. Pate in a week. He also will follow up with Dr. Field, his primary multiskill operator in 2 weeks. BRIEF COURSE DURING HOSPITALIZATION: The patient initially came in with complaints of right-sided chest pain, which later radiated to left side. In view of this history, was placed under observation due to significant history of prior coronary artery disease. He has had 3 sets of troponin done, which was negative. The patient's chest pain completely resolved during his brief stay here. His renal function is at his baseline. He has chronic indwelling Tavera catheter and has abnormal urinalysis, likely due to colonization. He needs to follow up with Dr. Pate, his urologist in a week and keep his followup appointment. The patient would also benefit to follow up with his primary multiskill operator in 2 weeks. He is otherwise hemodynamically stable. He has [facility] and physical therapy and needs to continue the same on discharge. Please note, I have seen and examined the patient on the day of discharge. Job ID: [id number] [facility] [place] [facility]
[2019-09-02] MEDS ORDERED: Pantoprazole 40 MG VIAL IVP SCH (21:00)
== END 2019-09-02 11:41 | disposition home health service (06) ==
LOC: ERS 16:50 → 2SE 19:12
PROVIDERS: ADMIT Internal Medicine; ATTEND Internal Medicine
DX: R07.89 Other chest pain (principal); I25.10 Atherosclerotic heart disease of native coronary artery without angina pectoris; I10 Essential (primary) hypertension; I48.0 Paroxysmal atrial fibrillation; E78.5 Hyperlipidemia, unspecified; J44.9 Chronic obstructive pulmonary disease, unspecified; N17.9 Acute kidney failure, unspecified; K59.00 Constipation, unspecified; Z79.01 Long term (current) use of anticoagulants; Z95.1 Presence of aortocoronary bypass graft; Z95.5 Presence of coronary angioplasty implant and graft
CPT/HCPCS: 71045; 74018; 80048; 82550; 83690; 83735; 83880; 84484 ×2; 85007; 85027; 85379; 87086; 93005; 93306; 94760; 96360; 96361 ×2; 97139; 99285; G0378 ×3; 36415; 80053; 81003; 81015; 84443; 85025

== ENCOUNTER 2019-10-04 15:25 | Observation (INO) | payer MEDICARE ==
[2019-10-04 16:26] LABS: #Eosinphils 0.2 thou/uL (0.0-0.7); #Lymphocytes 1.1 thou/uL (1.20-3.40); #Monocytes 0.6 thou/uL (0.11-0.59); %Basophils 0.4 % (0.0-1.0); %Eosinophils 3.2 % (0.0-10.0); %Lymphocytes 22.8 % (21.0-51.0); %Monocytes 12.2 % (0.0-10.0); %Neutrophils 61.5 % (42.0-75.0); Hemoglobin 8.2 g/dL (14.0-18.0); Mean Corpuscular HGB CONC 31.2 g/dL (32.0-36.0); Mean Corpuscular Hemoglobin 28.3 pg (27.0-31.0); Mean Corpuscular Volume 90.5 fL (78.0-98.0); Mean Platelet Volume 8.6 fL (7.4-10.4); Platelet Count 157 thou/uL (130-400); RBC Distribution Width 16.8 % (11.5-14.5); Red Blood Cell (RBC) Count 2.89 mill/uL (4.70-6.10); White Blood Cell (WBC) Count 4.8 thou/uL (4.8-10.8)
[2019-10-04 16:47] LABS: ALT (SGPT) 8 U/L (8-55); AST (SGOT) 15 U/L (5-34); Alkaline Phosphatase 66 U/L (40-110); Anion Gap 10 mmol/L (10-20); BUN (Urea Nitrogen) 32 mg/dL (8.4-25.7); Bilirubin, Total 0.3 mg/dL (0.2-1.2); Calc. Creatinine Clearance 0 mL/min (70-130); Calcium 8.1 mg/dL (7.8-10.44); Carbon Dioxide 24 mmol/L (23-31); Chloride 111 mmol/L (98-107); Estimated GFR-MDRD 44; Globulin 2.6 g/dL (2.4-3.5); Glucose 103 mg/dL (83-110); Potassium 4.2 mmol/L (3.5-5.1); Protein, Total 5.6 g/dL (5.8-8.1); Sodium 141 mmol/L (136-145)
--- NOTE | 2019-10-04 18:14 | ULT ---
RIGHT LOWER EXTREMITY VENOUS DUPLEX EXAM: 10/04/19 HISTORY: Right leg pain and swelling. Real time color Doppler evaluation of the right lower extremity was performed from groin to calf. Thi s includes evaluation of common femoral, superficial and profunda femoral, saphenous, popliteal and p osterior tibial veins. This shows a patent deep venous system. There is normal compressibility and au gmentation. No evidence of DVT. IMPRESSION: No evidence of DVT of the right lower extremity. POS: MARTHA
[2019-10-04] MEDS ORDERED: Ondansetron PF 4 MG/2 ML Vial IVP PRN (19:06)
[2019-10-04] MEDS ORDERED: Acetaminophen 325 MG TAB PO PRN ×2 (19:06→19:33)
[2019-10-04] MEDS ORDERED: Ondansetron ODT 4 MG TAB SL PRN (19:06)
[2019-10-04] MEDS ORDERED: Senokot S 8.6-50 MG TAB PO PRN (19:33)
[2019-10-04] MEDS ORDERED: Famotidine 20 MG TAB PO SCH (21:00)
--- NOTE | 2019-10-04 21:52 | PDOC.EVN ---
Event Note - Event Note Event Note: Chart reviewed. Pt evaluated. Discussed case with MARY, agree with assessment and plan of care. 84 yo man with h/o CAD, COPD and gout presenting with symptomatic anemia. Assessment: 1. Symptomatic anemia 2. COPD, stable Plan: 1. Admit on observation status. 2. Transfuse pRBC. 3. DVT ruled out 4. Further management depending on clinical course.
[2019-10-04] MEDS: Nitroglycerin 0.4mg/Hour PATCH TD SCH (21:54)
[2019-10-04] MEDS: Nitroglycerin 0.4 MG TAB (25 Tab Bottle) SL PRN ×3 (22:01→22:52)
[2019-10-04] MEDS: Metoprolol Tartrate 50 MG TAB PO SCH (23:38)
--- NOTE | 2019-10-04 23:52 | HP ---
This is LAITH Mirza dictating a report for Artem Gamboa MD. CHIEF COMPLAINT: Orthostatic hypotension, dizziness, low hemoglobin. HISTORY OF PRESENT ILLNESS: Mr. Clarke is a very pleasant 84-year-old man, who reported to the emergency room today after his home health nurse thought that he was having some orthostatic hypotension for the last couple of days. Reports that he has had some chronic swelling in his lower extremities and the right leg is a little worse today. He reports that he had his urinary catheter removed yesterday by Dr. Pate and he reports that he has been able to urinate without any issues for the last 24 hours. He reports that his PCP has been changing his medications quite a bit over the last two weeks, but he is not sure what the changes are nor does he know what medications he is actually supposed to be taking. In the ER, labs were drawn. He has a hemoglobin of 8.2 today. He was admitted a month ago for chest pain and was discharged home. At that time, his hemoglobin was 8.5. He is on Eliquis 2.5 mg p.o. b.i.d., but he does have chronic anemia. The ER physician thought that he would benefit from a unit of packed red blood cells and so, he was admitted for symptomatic anemia, orthostatic hypotension, and will be placed in . He has past medical history pertinent for atrial fibrillation, coronary artery disease, hypertension, hyperlipidemia, COPD, hemorrhoids. He does have a history of CABG and is a former smoker. REVIEW OF SYSTEMS: The patient denies any fever or chills. Does report some dizziness when changing positions primarily from a sitting to a standing. He reports that he has had this on and off, but it is worse in the last couple of days. He reports some shortness of breath, but denies any worsening of the symptoms. He reports that he has chronic COPD and shortness of breath is pretty consistent with what it is normally. He denies any dark red stools. Denies any jian blood and does not endorse any jian bleeding after bowel movement. He denies any dysuria or hematuria. Denies any incontinence, is urinating after his catheter was taken out by Dr. Pate yesterday. He denies any chest pain. All systems reviewed and are negative unless mentioned above or in the HPI. PAST MEDICAL HISTORY: Coronary artery disease, hyperlipidemia, hypertension, COPD, atrial fibrillation, GERD, gout. PAST SURGICAL HISTORY: CABG x5 vessel, also has one cardiac stent, had surgery for stomach ulcers. He has had a gastrectomy, hemorrhoids removed, and does have a ayo in his right leg. PSYCHIATRIC HISTORY: Anxiety. SOCIAL HISTORY: He lives at home with his brother. He is a former tobacco smoker. Denies any alcohol use. No drug use. KNOWN ALLERGIES: None. CURRENT HOME MEDICATIONS: 1. Tylenol with Codeine one tab p.o. q.6 p.r.n. 2. Allopurinol 100 mg p.o. daily. 3. Eliquis 2.5 mg p.o. b.i.d. 4. Atorvastatin 20 mg p.o. at bedtime. 5. Symbicort 160-4.5 two puffs b.i.d. 6. Vitamin B12 of 1200 mcg SL daily. 7. Finasteride 1 mg p.o. daily. 8. Furosemide 20 mg p.o. daily. 9. Losartan 25 mg p.o. daily. 10. Lopressor 25 mg p.o. b.i.d. 11. Nitroglycerin 0.4 sublingual q.5 minutes p.r.n. chest pain. 12. Nitroglycerin 0.4 mg patch daily. 13. Protonix 20 mg p.o. daily. 14. Flomax 0.4 mg p.o. daily. 15. Triamcinolone 0.1% topical b.i.d. 16. Ranexa 500 mg p.o. b.i.d. 17. Folic acid 1 mg p.o. daily. 18. Albuterol inhaler one puff p.r.n. as needed. PHYSICAL EXAMINATION: VITAL SIGNS: Blood pressure 155/60, pulse is 67, respiratory rate is 19, temp is 98.3, pO2 sats are 98% on room air. CONSTITUTIONAL: The patient is nontoxic appearing. He is alert and oriented to person, place, and time. HEENT: Head is atraumatic and normocephalic. Eyes, pupils are equally round and reactive to light. Extraocular muscles are intact. ENT; mouth exam is normal. Mucous membranes are moist. NECK: Normal range of motion. Trachea is midline. RESPIRATORY: Chest movement is symmetrical. No tenderness. CARDIOVASCULAR: Heart sounds are normal. Pedal pulses are normal. ABDOMEN: Bowel sounds are heard. There is no tenderness noted on palpation. BACK: Normal range of motion. No tenderness. EXTREMITIES: Upper extremity, normal range of motion. Motor strength is normal. Lower extremity, motor strength is normal. Sensation is intact. There is edema noted, 2+ pitting. NEURO: Th patient is alert and oriented to person, place, and time. Cranial nerves are grossly intact. SKIN: Warm, dry, normal in color. PSYCH: Has normal affect. EKG in the emergency room shows beats per minute 66, wide QRS, right bundle branch block, left anterior fascicular block. LABORATORY DATA: White blood cell count 4.8, hemoglobin is 8.2, hematocrit is 26.1, and platelet count is 125. Chemistry; sodium 141, potassium 4.2, chloride 111, carbon dioxide 24, anion gap is 10, BUN is 32, creatinine is 1.52. Estimated GFR is 44. This is at baseline, actually improved from his visit in August. Glucose 103, calcium is 8.1. Liver enzymes are unremarkable. Troponin 0.014. Albumin is 3. PLAN/ASSESSMENT: 1. Symptomatic anemia. We will transfuse 1 unit of packed red blood cells. We will repeat an H and H, CBC in the morning. This was ordered earlier, but nurses started when patient arrived to the floor about 2100. We will get vitals to include orthostatics. We will hold his Eliquis for now. We have asked for occult blood to be collected, we will add cortisol in the morning. 2. Edema to lower legs. An ultrasound was ordered in the ER. No evidence of deep venous thrombosis and patient is on Eliquis, so this makes this less likely. We will restart his Eliquis as soon as his guaiac comes back. 3. History of hypertension. We will restart his home medications. 4. History of hyperlipidemia. We will restart his home medications. 5. History of coronary artery disease. He was evaluated a month ago for chest pain. We will restart his home medications including the Ranexa. 6. Deep venous thrombosis and gastrointestinal prophylaxis started. 7. Case discussed with Dr. Gamboa, who agrees with plan. 8. Hospital course is dependent on clinical findings. Job ID: [id number]
[2019-10-05 02:05] LABS: #Eosinphils 0.2 thou/uL (0.0-0.7); #Lymphocytes 1.4 thou/uL (1.20-3.40); #Monocytes 0.5 thou/uL (0.11-0.59); #Neutrophils 2.5 thou/uL (1.40-6.50); %Basophils 0.5 % (0.0-1.0); %Eosinophils 4.7 % (0.0-10.0); %Lymphocytes 31.3 % (21.0-51.0); %Monocytes 10.3 % (0.0-10.0); %Neutrophils 53.3 % (42.0-75.0); Hemoglobin 9.3 g/dL (14.0-18.0); Mean Corpuscular HGB CONC 32.1 g/dL (32.0-36.0); Mean Corpuscular Hemoglobin 28.3 pg (27.0-31.0); Mean Corpuscular Volume 88.2 fL (78.0-98.0); Mean Platelet Volume 8.8 fL (7.4-10.4); Platelet Count 157 thou/uL (130-400); RBC Distribution Width 17.2 % (11.5-14.5); Red Blood Cell (RBC) Count 3.29 mill/uL (4.70-6.10); White Blood Cell (WBC) Count 4.6 thou/uL (4.8-10.8)
[2019-10-05 02:29] LABS: Troponin I 0.018 ng/mL (< 0.028)
[2019-10-05 02:31] LABS: Anion Gap 9 mmol/L (10-20); BUN (Urea Nitrogen) 28 mg/dL (8.4-25.7); Calc. Creatinine Clearance 50 mL/min (70-130); Calcium 8.2 mg/dL (7.8-10.44); Carbon Dioxide 28 mmol/L (23-31); Chloride 109 mmol/L (98-107); Estimated GFR-MDRD 54; Glucose 91 mg/dL (83-110); Potassium 4.1 mmol/L (3.5-5.1); Sodium 142 mmol/L (136-145)
[2019-10-05] MEDS: Nitroglycerin 0.4 MG TAB (25 Tab Bottle) SL PRN (03:57)
[2019-10-05] MEDS: Acetaminophen/Codeine 30-300mg Tablet PO PRN (04:12)
[2019-10-05 05:53] LABS: Troponin I 0.021 ng/mL (< 0.028)
[2019-10-05] MEDS: Mometasone 200 MCG/Formoterol 5 MCG 120 PUFF INHALER INH SCH ×2 (07:26→19:27)
[2019-10-05] MEDS ORDERED: Pantoprazole 40 MG GRANULES PACKET PO SCH (09:00)
[2019-10-05] MEDS ORDERED: Nitroglycerin 0.4mg/Hour PATCH TD SCH (09:00)
[2019-10-05] MEDS ORDERED: Finasteride 5 MG TAB PO SCH (09:00)
[2019-10-05] MEDS: Metoprolol Tartrate 50 MG TAB PO SCH ×2 (09:03→21:15)
[2019-10-05] MEDS: Famotidine 20 MG TAB PO SCH (09:03)
[2019-10-05] MEDS: Allopurinol 100 MG TAB PO SCH (09:03)
[2019-10-05] MEDS: Furosemide 20 MG TAB PO SCH (09:04)
[2019-10-05] MEDS: Tamsulosin HCl 0.4 MG CAP PO SCH (09:04)
[2019-10-05] MEDS: Folic Acid 1 MG TAB PO SCH (09:04)
[2019-10-05] MEDS: Losartan 25 MG TAB PO SCH (09:04)
--- NOTE | 2019-10-05 12:11 | PDOC.HOSPP ---
- Subjective Encounter Date: 10/05/19 Encounter Time: 10:15 Subjective: no chest pain or sob or palp feels better - Objective Vital Signs & Weight: Vital Signs (12 hours) Temp Pulse Resp BP BP BP BP 10/05/19 11:22 97.8 F 66 16 141/63 H 10/05/19 07:33 97.9 F 66 16 172/86 H 10/05/19 07:26 65 16 10/05/19 04:00 62 147/52 H 10/05/19 03:58 65 168/56 H 10/05/19 03:18 97.8 F 68 20 163/63 H 150/71 H 140/68 Pulse Ox 10/05/19 11:22 94 L 10/05/19 07:33 94 L 10/05/19 07:26 10/05/19 04:00 10/05/19 03:58 10/05/19 03:18 97 Weight Weight 184 lb 4.8 oz I&O: 10/04/19 10/05/19 10/06/19 06:59 06:59 06:59 Intake Total 750 Output Total 300 360 Balance 450 -360 Result Diagrams: 10/05/19 01:57 10/05/19 01:57 Hospitalist ROS - Medication Medications: Active Medications Generic Name Dose Route Start Last Admin Trade Name Freq PRN Reason Stop Dose Admin Acetaminophen/Codeine Phosphate 1 tab 10/04/19 21:10 10/05/19 04:12 Tylenol #3 PO 1 tab Q6HR PRN Administration Pain Allopurinol 100 mg 10/05/19 09:00 10/05/19 09:03 Zyloprim PO 100 mg DAILY LOLA Administration Famotidine 20 mg 10/05/19 09:00 10/05/19 09:03 Pepcid PO 20 mg DAILY LOLA Administration Folic Acid 1 mg 10/05/19 09:00 10/05/19 09:04 Folvite PO 1 mg DAILY LOLA Administration Furosemide 20 mg 10/05/19 09:00 10/05/19 09:04 Lasix PO 20 mg DAILY LOLA Administration Losartan Potassium 25 mg 10/05/19 09:00 10/05/19 09:04 Cozaar PO 25 mg DAILY LOLA Administration Metoprolol Tartrate 25 mg 10/04/19 21:00 10/05/19 09:03 Lopressor PO 25 mg BID LOLA Administration Mometasone Furoate/Formoterol Fumar 2 puff 10/05/19 06:30 10/05/19 07:26 Dulera 200 Mcg/5 Mcg Inhaler INH 2 puff BID-RT LOLA Administration Nitroglycerin 0.4 mg 10/04/19 21:25 10/05/19 03:57 Nitrostat SL 1 tab Q5MIN PRN Administration Chest Pain Nitroglycerin 1 patch 10/04/19 21:00 10/04/19 21:54 Nitro-Dur 0.4mg/Hr Patch TD 1 patch HS LOLA Administration Pantoprazole Sodium 40 mg 10/05/19 09:00 10/05/19 09:04 Protonix PO 40 mg DAILY LOLA Administration Ranolazine 500 mg 10/04/19 21:00 10/05/19 09:04 Ranexa PO 500 mg BID LOLA Administration Sodium Chloride 10 ml 10/04/19 19:33 10/05/19 09:02 Flush - Normal Saline IVF 10 ml PRN PRN Administration Saline Flush Tamsulosin HCl 0.4 mg 10/05/19 09:00 10/05/19 09:04 Flomax PO 0.4 mg DAILY LOLA Administration Triamcinolone Acetonide 0 gm 10/04/19 21:00 10/05/19 10:51 Kenalog 0.1% Ointment TOP Not Given BID LOLA - Exam General Appearance: awake alert Eye: PERRL, anicteric sclera ENT: no oropharyngeal lesions, moist mucosa Neck: supple, no JVD Heart: RRR, no murmur Respiratory: no wheezes, no rales Gastrointestinal: soft, non-tender, non-distended, normal bowel sounds Extremities: no cyanosis, 1+ LE edema Neurological: cranial nerve grossly intact, no focal deficits Hosp A/P (1) Orthostasis Code(s): I95.1 - ORTHOSTATIC HYPOTENSION Status: Acute (2) Dizziness Code(s): R42 - DIZZINESS AND GIDDINESS Status: Acute (3) Anemia Code(s): D64.9 - ANEMIA, UNSPECIFIED Status: Chronic Qualifiers: Anemia type: unspecified type (4) CAD (coronary artery disease) Code(s): I25.10 - ATHSCL HEART DISEASE OF [place] CORONARY ARTERY W/O ANG PCTRS Status: Chronic Qualifiers: Coronary Disease-Associated Artery/Lesion type: bypass graft [place] vs. transplanted heart: [place] heart Associated angina: without angina Qualified Code(s): I25.810 - Atherosclerosis of coronary artery bypass graft(s) without angina pectoris (5) COPD (chronic obstructive pulmonary disease) Status: Chronic Qualifiers: COPD type: unspecified COPD Qualified Code(s): J44.9 - Chronic obstructive pulmonary disease, unspecified (6) HLD (hyperlipidemia) Code(s): E78.5 - HYPERLIPIDEMIA, UNSPECIFIED Status: Chronic Qualifiers: Hyperlipidemia type: unspecified Qualified Code(s): E78.5 - Hyperlipidemia , unspecified (7) HTN (hypertension) Code(s): I10 - ESSENTIAL (PRIMARY) HYPERTENSION Status: Chronic Qualifiers: Hypertension type: essential hypertension Qualified Code(s): I10 - Essential (primary) hypertension (8) Paroxysmal A-fib Code(s): I48.0 - PAROXYSMAL ATRIAL FIBRILLATION Status: Chronic (9) MALKA (acute kidney injury) Code(s): N17.9 - ACUTE KIDNEY FAILURE, UNSPECIFIED Status: Resolved - Plan PT to mobilize as tolerated on eliquis, lasix, cozaar, lopressor, ranexa, allopurinol, flomax and proscar. renal function is back to baseline trop x3 is -ve dc planning had his beckford removed on 10/02 by , is passing urine.
[2019-10-05 12:37] VITALS: BMI 28.0
[2019-10-05] MEDS: Albuterol 200 PUFF (6.7GM INHALER) INH PRN (12:39)
--- NOTE | 2019-10-05 14:51 | EKG ---
Test Reason : Blood Pressure : / mmHG Vent. Rate : 066 BPM Atrial Rate : 072 BPM P-R Int : 000 ms QRS Dur : 142 ms QT Int : 484 ms P-R-T Axes : 000 -64 -12 degrees QTc Int : 507 ms Wide QRS rhythm Right bundle branch block Left anterior fascicular block Bifascicular block Abnormal ECG Confirmed by ALETHA LOPEZ ([id number]), graphic editor BILL WOOD ([id number]) on 10/05/2019 2:51:34 PM Referred By: Confirmed By:ALETHA LOPEZ
[2019-10-05] MEDS: Nitroglycerin 0.4mg/Hour PATCH TD SCH (21:16)
[2019-10-05] MEDS ORDERED: Melatonin 3 MG TAB PO PRN (23:35)
[2019-10-06] MEDS: Albuterol 200 PUFF (6.7GM INHALER) INH PRN (05:41)
[2019-10-06] MEDS: Mometasone 200 MCG/Formoterol 5 MCG 120 PUFF INHALER INH SCH (05:42)
[2019-10-06] MEDS: Nitroglycerin 0.4 MG TAB (25 Tab Bottle) SL PRN (05:54)
[2019-10-06 07:21] VITALS: TEMP 97.4
[2019-10-06 08:15] LABS: #Eosinphils 0.2 thou/uL (0.0-0.7); #Lymphocytes 1.3 thou/uL (1.20-3.40); #Monocytes 0.4 thou/uL (0.11-0.59); #Neutrophils 2.8 thou/uL (1.40-6.50); %Basophils 0.3 % (0.0-1.0); %Eosinophils 4.2 % (0.0-10.0); %Lymphocytes 27.9 % (21.0-51.0); %Neutrophils 58.7 % (42.0-75.0); Hemoglobin 9.1 g/dL (14.0-18.0); Mean Corpuscular HGB CONC 32.7 g/dL (32.0-36.0); Mean Corpuscular Hemoglobin 28.9 pg (27.0-31.0); Mean Corpuscular Volume 88.6 fL (78.0-98.0); Mean Platelet Volume 8.9 fL (7.4-10.4); Platelet Count 167 thou/uL (130-400); RBC Distribution Width 17.2 % (11.5-14.5); Red Blood Cell (RBC) Count 3.14 mill/uL (4.70-6.10); White Blood Cell (WBC) Count 4.8 thou/uL (4.8-10.8)
[2019-10-06] MEDS: Allopurinol 100 MG TAB PO SCH (08:25)
[2019-10-06] MEDS: Famotidine 20 MG TAB PO SCH (08:25)
[2019-10-06] MEDS: Tamsulosin HCl 0.4 MG CAP PO SCH (08:25)
[2019-10-06] MEDS: Furosemide 20 MG TAB PO SCH (08:26)
[2019-10-06] MEDS: Losartan 25 MG TAB PO SCH (08:26)
[2019-10-06] MEDS: Metoprolol Tartrate 50 MG TAB PO SCH (08:26)
[2019-10-06] MEDS: Folic Acid 1 MG TAB PO SCH (08:26)
[2019-10-06 08:31] LABS: Anion Gap 12 mmol/L (10-20); BUN (Urea Nitrogen) 26 mg/dL (8.4-25.7); Calc. Creatinine Clearance 47 mL/min (70-130); Calcium 8.5 mg/dL (7.8-10.44); Carbon Dioxide 26 mmol/L (23-31); Chloride 106 mmol/L (98-107); Estimated GFR-MDRD 50; Glucose 133 mg/dL (83-110); Potassium 3.9 mmol/L (3.5-5.1); Sodium 140 mmol/L (136-145)
[2019-10-06] MEDS ORDERED: Finasteride 5 MG TAB PO SCH (09:00)
[2019-10-06] MEDS: Acetaminophen/Codeine 30-300mg Tablet PO PRN (09:22)
[2019-10-06] MEDS ORDERED: Furosemide 20 MG TAB PO SCH (10:00)
[2019-10-06 12:07] VITALS: BP 124/56
--- NOTE | 2019-10-06 16:08 | DIS ---
DATE OF ADMISSION: 10/04/2019 DATE OF DISCHARGE: 10/06/2019 DISCHARGE DISPOSITION: To home. PRIMARY DISCHARGE DIAGNOSES: Orthostasis with syncope and dizziness, symptomatic anemia. SECONDARY DISCHARGE DIAGNOSES: Chronic obstructive pulmonary disease, coronary artery disease, dyslipidemia, paroxysmal atrial fibrillation, and hypertension. Acute kidney injury on admission, resolved. PROCEDURES DONE DURING HOSPITALIZATION: Ultrasound venous Doppler of right lower extremity done showed no evidence of DVT. H and H 8.2 and 26, platelet count 157. Discharge BUN and creatinine are 26 and 1.36. Troponin x3 negative. Initial BUN creatinine were 32 and 1.5. The patient received 1 unit of packed cell transfusion. DISCHARGE MEDICATIONS: 1. Allopurinol 100 mg p.o. daily. 2. Eliquis 2.5 mg twice daily. 3. Atorvastatin 20 mg p.o. at bedtime. 4. Symbicort inhaler 160/4.5 mcg two puffs twice daily. 5. Vitamin B12, 1000 mcg p.o. daily. 6. Finasteride 5 mg daily. 7. Lasix 20 mg daily p.r.n. 8. Losartan 25 mg daily. 9. Lopressor 25 mg twice daily. 10. Nitroglycerin patch 0.4 mg transdermal daily. 11. Protonix 40 mg twice daily. 12. Flomax 0.4 mg daily. 13. Folic acid 1 mg p.o. daily. 14. Ranexa 500 mg p.o. twice daily. 15. Albuterol inhaler q.6 hourly p.r.n. DISCHARGE PLAN: The patient to follow up with his primary care physician in 1 week. BRIEF COURSE DURING HOSPITALIZATION: The patient initially got admitted on the 03 of October with complaints of dizziness. He was found to have had orthostatic hypotension. The patient also had hemoglobin of 8.2 g and was on Eliquis twice daily. The patient was suspected to have symptomatic anemia and a unit of packed cell transfusion was given. He was responded well to above measures. He is ambulating with physical therapy and is not dizzy anymore. His orthostatic hypotension has resolved. He has remained hemodynamically stable and eating well. He needs to follow up with his primary care physician in 1 week. Please note, I have seen and examined the patient on the day of discharge. Job ID: [id number]
== END 2019-10-06 11:13 | disposition home or self-care (01) ==
LOC: ERS 15:25 → 2NO 17:35 → ERS 18:52
PROVIDERS: ADMIT Internal Medicine; ATTEND Internal Medicine
DX: I95.1 Orthostatic hypotension (principal); D64.9 Anemia, unspecified; M79.89 Other specified soft tissue disorders; J44.9 Chronic obstructive pulmonary disease, unspecified; I25.10 Atherosclerotic heart disease of native coronary artery without angina pectoris; E78.5 Hyperlipidemia, unspecified; I48.0 Paroxysmal atrial fibrillation; I10 Essential (primary) hypertension; N17.9 Acute kidney failure, unspecified; K21.9 Gastro-esophageal reflux disease without esophagitis; F41.9 Anxiety disorder, unspecified; M1A.20X0 Drug-induced chronic gout, unspecified site, without tophus (tophi); Z87.891 Personal history of nicotine dependence; Z79.01 Long term (current) use of anticoagulants; Z79.899 Other long term (current) drug therapy; Z95.1 Presence of aortocoronary bypass graft; Z95.5 Presence of coronary angioplasty implant and graft; Z90.3 Acquired absence of stomach [part of]
CPT/HCPCS: 36430; 80048 ×2; 80053; 82533; 84484 ×2; 85025 ×3; 86850; 86900; 86901; 86920; 93005; 93971; 94640 ×2; 97116; 97139 ×2; 99285; G0378 ×4; P9016; 36415

== ENCOUNTER 2019-10-18 06:42 | Outpatient (CLI) | payer MEDICARE, OTHER ==
[2019-10-18 13:59] LABS: Hemoglobin 10.3 g/dL (14.0-18.0); Mean Corpuscular HGB CONC 31.8 g/dL (32.0-36.0); Mean Corpuscular Hemoglobin 28.1 pg (27.0-31.0); Mean Corpuscular Volume 88.6 fL (78.0-98.0); Mean Platelet Volume 8.8 fL (7.4-10.4); Platelet Count 275 thou/uL (130-400); RBC Distribution Width 17.4 % (11.5-14.5); Red Blood Cell (RBC) Count 3.65 mill/uL (4.70-6.10); White Blood Cell (WBC) Count 6.1 thou/uL (4.8-10.8)
[2019-10-18 14:23] LABS: Anion Gap 18 mmol/L (10-20); BUN (Urea Nitrogen) 37 mg/dL (8.4-25.7); Calc. Creatinine Clearance 0 mL/min (70-130); Carbon Dioxide 23 mmol/L (23-31); Chloride 105 mmol/L (98-107); Estimated GFR-MDRD 36; Glucose 119 mg/dL (83-110); Potassium 4.8 mmol/L (3.5-5.1); Sodium 141 mmol/L (136-145)
[2019-10-18 14:26] LABS: Bacteria/HPF 4+ HPF (None Seen); Bilirubin Negative (Negative); Blood, Urine Negative (Negative); Clarity Turbid (Clear); Glucose, Urine (Dipstick) Normal (Negative); Leukocyte 500 Leu/uL (Negative); Nitrite 1+ (Negative); Protein, Urine (Dipstick) Negative (Neg-Trace); Urobilinogen Normal mg/dL (Less than 2); WBC/HPF Greater than 50 HPF (0-3)
[2019-10-18 14:31] LABS: INR-International Normal Ratio 1.2; PTT 35.3 sec (22.9-36.1); Prothrombin Time 15.1 sec (12.0-14.7)
[2019-10-19 11:33] LABS: SARS-CoV-2 MS2 Positive; SARS-CoV-2 N Gene Negative; SARS-CoV-2 S Gene Negative; SARS-CoV-2 orf1ab Negative
== END 2019-10-18 06:43 | disposition home or self-care (01) ==
LOC: LABBT 06:42
PROVIDERS: ATTEND Urology
DX: Z01.812 Encounter for preprocedural laboratory examination (principal); Z11.59 Encounter for screening for other viral diseases; N40.1 Benign prostatic hyperplasia with lower urinary tract symptoms
CPT/HCPCS: 80048; 81001; 85027; 85610; 85730; 87077; 87086; 87186; U0003; 87635

== ENCOUNTER 2019-11-10 22:41 | Inpatient (IN) | payer MEDICARE ==
[2019-11-10] MEDS ORDERED: Nitroglycerin 50 MG/250 ML BOT 250 ML ONE (23:17)
[2019-11-10 23:20] LABS: #Eosinphils 0.2 thou/uL (0.0-0.7); #Lymphocytes 1.5 thou/uL (1.20-3.40); #Monocytes 0.5 thou/uL (0.11-0.59); #Neutrophils 3.6 thou/uL (1.40-6.50); %Basophils 0.4 % (0.0-1.0); %Eosinophils 3.7 % (0.0-10.0); %Lymphocytes 25.3 % (21.0-51.0); %Monocytes 9.1 % (0.0-10.0); %Neutrophils 61.4 % (42.0-75.0); Hemoglobin 9.5 g/dL (14.0-18.0); Mean Corpuscular Hemoglobin 28.6 pg (27.0-31.0); Mean Corpuscular Volume 89.3 fL (78.0-98.0); Mean Platelet Volume 8.5 fL (7.4-10.4); Platelet Count 186 thou/uL (130-400); RBC Distribution Width 16.8 % (11.5-14.5); Red Blood Cell (RBC) Count 3.32 mill/uL (4.70-6.10); White Blood Cell (WBC) Count 5.9 thou/uL (4.8-10.8)
[2019-11-10 23:44] LABS: ALT (SGPT) 15 U/L (8-55); AST (SGOT) 20 U/L (5-34); Albumin 3.6 g/dL (3.4-4.8); Alkaline Phosphatase 70 U/L (40-110); Anion Gap 13 mmol/L (10-20); BUN (Urea Nitrogen) 53 mg/dL (8.4-25.7); Bilirubin, Total 0.4 mg/dL (0.2-1.2); CK (CPK) 21 U/L (30-200); Calc. Creatinine Clearance 0 mL/min (70-130); Carbon Dioxide 26 mmol/L (23-31); Chloride 103 mmol/L (98-107); Estimated GFR-MDRD 24; Globulin 2.8 g/dL (2.4-3.5); Glucose 98 mg/dL (83-110); Potassium 4.3 mmol/L (3.5-5.1); Protein, Total 6.4 g/dL (5.8-8.1); Sodium 138 mmol/L (136-145)
[2019-11-11 03:08] LABS: Troponin I 0.015 ng/mL (< 0.028)
[2019-11-11 04:47] VITALS: BMI 26.7
[2019-11-11] MEDS ORDERED: Nitroglycerin 50 MG/250 ML BOT 250 ML IVPB SCH (06:00)
[2019-11-11] MEDS: Morphine 2 MG/ML VIAL SLOW IVP PRN ×3 (06:08→21:44)
[2019-11-11 06:54] LABS: Troponin I 0.012 ng/mL (< 0.028)
--- NOTE | 2019-11-11 07:20 | RAD ---
PORTABLE UPRIGHT FRONTAL CHEST: Date: 11/10/2019 COMPARISON: 09/01/2019. HISTORY: Chest pain. FINDINGS: Midline sternotomy wires and mediastinal clips are present. No pneumothorax, lobar consolidation, or alveolar edema. Mild elevation of the left hemidiaphragm limits assessment of the left base. IMPRESSION: No focal consolidation or alveolar edema. POS: [facility]
--- NOTE | 2019-11-11 12:56 | CON ---
DATE OF CONSULTATION: 11/11/2019 HISTORY OF PRESENT ILLNESS: Garrett Clarke is an 84-year-old gentleman, brought to the ER with chest pain. He took his nitroglycerin. He denies any difficulty of breathing. Now, he is on the MICU, reason for consult. This morning, he said he is feeling better. No further chest pain or shortness of breath. He has been here numerous times in this institution. In fact, he was just recently discharged from the hospital after presenting with syncope and low hemoglobin. PAST MEDICAL HISTORY: 1. Coronary artery disease. 2. Cardiac stents. 3. Major anxiety. 4. COPD. 5. High cholesterol. 6. Hypertension. 7. Renal failure. 8. Peptic ulcer disease. PAST SURGICAL HISTORY: 1. Bypass. 2. Stents. 3. Surgery on the leg. CHRONIC MEDICATIONS: From home include; 1. Flomax 0.4. 2. Ranexa 500. 3. Protonix 40. 4. Nitroglycerin. 5. Losartan 25. 6. Lasix 20. 7. Finasteride 5. 8. Symbicort 2 puffs twice a day. 9. Eliquis 2.5. 10. Allopurinol. ALLERGIES: HE IS ALLERGIC TO MORPHINE. REVIEW OF SYSTEMS: Otherwise, 10-point is negative. PHYSICAL EXAMINATION: VITAL SIGNS: His sats are 90% on room air, pulse 97, blood pressure 140/50. CHEST: Decreased breath sounds. No wheezing. CARDIAC: Normal S1, S2. No gallops. ABDOMEN: No masses. LABORATORY DATA: Creatinine 2.53. BNP is 281. White count 5000. Chest x-ray is normal. IMPRESSION AND PLAN: 1. Chest pain. 2. Rule out coronary artery disease. 3. Unstable angina. 4. Renal failure. 5. Chronic obstructive pulmonary disease. 6. Atrial fibrillation. 7. Hyperlipidemia. Cardiology needs to be consulted. Pulmonary weir, he appears to be stable. He has seen Dr. Chavez in office before. We will notify him. We will restart his home medication. Consultation note, 70 minutes, 50% direct patient care. Job ID: [id number]
--- NOTE | 2019-11-11 15:49 | CON ---
DATE OF CONSULTATION: REASON FOR CONSULTATION: Chest pain. Dr. Alexis Santacruz is primary provider. HISTORY OF PRESENT ILLNESS: Mr. Clarke is an unfortunate 84-year-old gentleman with previous history of CAD, status post bypass surgery in 1992 followed by stent placement in [place], [place]. He has had five admissions over the last 6 months for chest pain and hypertension. In the past, he has been not amenable to proceeding with coronary angiography or any invasive procedures including a noninvasive stress study. He recently presented with hypertension and recurrent chest pain. He required IV nitroglycerin for relief of symptoms. He had chest pain last evening that has now resolved. PAST MEDICAL HISTORY: As described above including hypertension; hyperlipidemia; COPD; atrial fibrillation, on anticoagulation therapy. SOCIAL HISTORY: No current tobacco or alcohol use. ALLERGIES: NONE. HOME MEDICATIONS: Include; 1. Amiodarone. 2. Lipitor. 3. Losartan. 4. Tramadol. 5. Prilosec. 6. Symbicort. 7. Eliquis. REVIEW OF SYSTEMS: A 10-point review of systems is reviewed and as above, otherwise negative. PHYSICAL EXAMINATION: GENERAL: Patient is a pleasant male, who is in no acute distress. The patient appears their stated age. VITAL SIGNS: Blood pressure 142/56, pulse 88, temperature afebrile. NEUROLOGIC: The patient is alert and oriented x3 with no focal neurologic deficits. HEENT: Sclerae without icterus. Mouth has moist mucous membranes with normal pallor. NECK: No JVD. Carotid upstroke brisk. No bruits bilaterally. LUNGS: Clear to auscultation with unlabored respirations. BACK: No scoliosis or kyphosis. CARDIAC: Regular rate and rhythm with normal S1 and S2. No S3 or S4 noted. No significant rubs, murmurs, thrills, or gallops noted throughout the precordium. PMI is not displaced. There is no parasternal heave. ABDOMEN: Soft, nontender, nondistended. No peritoneal signs present. No hepatosplenomegaly. No abnormal striae. EXTREMITIES: 2+ femoral and 2+ dorsalis pedis pulses. No cyanosis, clubbing, or edema. SKIN: No gross abnormalities. PERTINENT LABS: Include hemoglobin 9.5. Creatinine 2.53. Troponin negative. BNP of 281. IMPRESSION: 1. Recurrent chest pain. 2. Malignant hypertension, on IV nitroglycerin. 3. Coronary artery disease. 4. Status post stent placement and bypass surgery. 5. Renal insufficiency. RECOMMENDATIONS: Mr. Clarke has had five admissions over the last 6 months. He has been resistant to proceeding with a noninvasive stress study in addition to coronary angiography. At this point to proceed with coronary angiography, would increase his risk of contrast nephropathy given a creatinine of 2.53. I did discuss this with Mr. Clarke. He did state he had a recent stress study performed at Dr. Field's office with a scar with no ischemia present within the last year. I have discussed the risks and benefits of procedure and coronary angiography. He is reluctant and would not like to proceed. Given that he has had multiple hospitalizations for the above, I also discussed hospice or palliative care. He is open to talking to the Palliative Care team. Mr. Clarke has no blood pressure medicines currently ordered outside of IV nitroglycerin. We will add amlodipine in addition to hydralazine and nitrates. Job ID: [id number]
[2019-11-11] MEDS ORDERED: Furosemide 20 MG TAB PO PRN (16:08)
[2019-11-11] MEDS ORDERED: hydrALAZINE 25 MG TAB PO SCH (16:15)
[2019-11-11] MEDS ORDERED: Albuterol Sulfate 1.25 MG/3 ML NEB NEB PRN (18:15)
[2019-11-11] MEDS: Mometasone 200 MCG/Formoterol 5 MCG 120 PUFF INHALER INH SCH (19:55)
[2019-11-11] MEDS: Apixaban 5 MG TAB PO SCH (20:23)
[2019-11-11] MEDS: Cyanocobalamin (Vitamin B-12) 1,000 MCG TAB PO SCH (20:23)
[2019-11-11] MEDS: hydrALAZINE 25 MG TAB PO SCH (20:24)
[2019-11-11] MEDS: Atorvastatin Calcium 20 MG TAB PO SCH (20:24)
[2019-11-11] MEDS: Metoprolol Tartrate 50 MG TAB PO SCH (20:24)
[2019-11-11] MEDS: Acetaminophen 325 MG TAB PO PRN (22:53)
[2019-11-11] MEDS: Ondansetron PF 4 MG/2 ML Vial IVP PRN (22:54)
[2019-11-12] MEDS: Mometasone 200 MCG/Formoterol 5 MCG 120 PUFF INHALER INH SCH ×2 (08:05→20:51)
[2019-11-12] MEDS: Allopurinol 100 MG TAB PO SCH (09:11)
[2019-11-12] MEDS: Finasteride 5 MG TAB PO SCH (09:11)
[2019-11-12] MEDS: Apixaban 5 MG TAB PO SCH ×2 (09:11→20:04)
[2019-11-12] MEDS: Folic Acid 1 MG TAB PO SCH (09:11)
[2019-11-12] MEDS: Metoprolol Tartrate 50 MG TAB PO SCH ×2 (09:12→20:04)
[2019-11-12] MEDS: Tamsulosin HCl 0.4 MG CAP PO SCH (09:12)
[2019-11-12] MEDS: hydrALAZINE 25 MG TAB PO SCH ×3 (09:12→20:04)
--- NOTE | 2019-11-12 16:26 | PRG ---
DATE OF SERVICE: 11/12/2019 SUBJECTIVE: Mr. Clarke last night had recurrent chest pain. He required IV nitroglycerin. He is currently pain free. OBJECTIVE: VITAL SIGNS: Blood pressure 118/48, pulse 65, temperature afebrile. LUNGS: Clear to auscultation. HEART: Regular rate and rhythm. ABDOMEN: Soft, nontender, nondistended. EXTREMITIES: No edema. LABORATORY DATA: Basic metabolic profile pending. IMPRESSION: 1. Angina. 2. CAD. 3. Status post bypass surgery. 4. Acute on chronic renal insufficiency. RECOMMENDATIONS: Again, I had talked today with Mr. Clarke about proceeding with coronary angiography versus conservative therapy. He would like to continue with conservative therapy. He would like to have further discussions with hospice and palliative care. At this point, that is the route he would like to take unless otherwise specified. He has had five hospitalizations in the last 6 months. Certainly, it seems reasonable. I would certainly risk contrast nephropathy proceeding with coronary angiography, which is certainly doable, but the patient is not interested in dialysis. Otherwise, I have no further recommendations. Continue current medical course as prescribed and await recommendations from Palliative Care. Job ID: [id number]
[2019-11-12] MEDS: Morphine 4 MG/ML VIAL SLOW IVP PRN (18:09)
[2019-11-12] MEDS ORDERED: Nitroglycerin 0.4 MG TAB (25 Tab Bottle) ONE (18:25)
[2019-11-12] MEDS ORDERED: Nitroglycerin 0.4 MG TAB (25 Tab Bottle) SL PRN (18:45)
--- NOTE | 2019-11-12 19:38 | PDOC.HOSPP ---
- Subjective Encounter Date: 11/12/19 Encounter Time: 15:00 Subjective: Pt seen for gfollowup re: chest pain. Continues to have on and off chest pain. - Objective Vital Signs & Weight: Vital Signs (12 hours) Temp Pulse Resp Pulse Ox 11/12/19 17:02 63 11/12/19 15:16 98.9 F 11/12/19 11:21 98.5 F 11/12/19 09:12 63 11/12/19 08:05 63 17 95 11/12/19 08:00 99 Weight Weight 170 lb 14.4 oz Most Recent Monitor Data Heart Rate from ECG 57 NIBP 134/50 NIBP BP-Mean 78 Respiration from ECG 16 SpO2 100 I&O: 11/11/19 11/12/19 11/13/19 06:59 06:59 06:59 Intake Total 590 Output Total 1350 Balance -760 Result Diagrams: 11/10/19 23:11 11/10/19 23:11 Additional Labs: Labs and MARs reviewed by me EKG Reviewed by me: Yes (Tele: NSR) Hospitalist ROS - Review of Systems Constitutional: denies: fever, chills, sweats, weakness, malaise Cardiovascular: reports: chest pain. denies: palpitations, orthopnea, paroxysmal noc. dyspnea, edema, light headedness - Medication Medications: Active Medications Generic Name Dose Route Start Last Admin Trade Name Freq PRN Reason Stop Dose Admin Acetaminophen 650 mg 11/11/19 22:37 11/11/19 22:53 Tylenol PO 650 mg Q6H PRN Administration Headache/Fever/MILD PAIN 1-3 Albuterol Sulfate 1.25 mg 11/11/19 18:15 11/11/19 19:57 Albuterol Sulfate NEB 1.25 mg DAILYPRN PRN Administration Dyspnea/Wheezing/SOB Allopurinol 100 mg 11/12/19 09:00 11/12/19 09:11 Zyloprim PO 100 mg DAILY LOLA Administration Apixaban 2.5 mg 11/11/19 21:00 11/12/19 09:11 Eliquis PO 2.5 mg BID LOLA Administration Atorvastatin Calcium 20 mg 11/11/19 21:00 11/11/19 20:24 Lipitor PO 20 mg HS LOLA Administration Cyanocobalamin 1,000 mcg 11/11/19 21:00 11/11/19 20:23 Vitamin B-12 PO 1,000 mcg HS LOLA Administration Finasteride 5 mg 11/12/19 09:00 11/12/19 09:11 Proscar PO 5 mg DAILY LOLA Administration Folic Acid 1 mg 11/12/19 09:00 11/12/19 09:11 Folvite PO 1 mg DAILY LOLA Administration Hydralazine HCl 25 mg 11/11/19 21:00 11/12/19 17:02 Apresoline PO 25 mg TID LOLA Administration Isosorbide Mononitrate 30 mg 11/12/19 09:00 11/12/19 09:12 Imdur Er PO 30 mg DAILY [facility] Administration Metoprolol Tartrate 25 mg 11/11/19 21:00 11/12/19 09:12 Lopressor PO 25 mg BID [facility] Administration Mometasone Furoate/Formoterol Fumar 2 puff 11/11/19 18:30 11/12/19 08:05 Dulera 200 Mcg/5 Mcg Inhaler INH 2 puff BID-RT LOLA Administration Morphine Sulfate 4 mg 11/11/19 22:38 11/12/19 18:09 Morphine SLOW IVP 4 mg Q4H PRN Administration Moderate to Severe Pain (6-10) Ondansetron HCl 4 mg 11/11/19 22:37 11/11/19 22:54 Zofran IVP 4 mg Q6H PRN Administration Nausea/Vomiting Pantoprazole Sodium 40 mg 11/11/19 21:00 11/12/19 09:12 Protonix PO 40 mg BID LOLA Administration Ranolazine 500 mg 11/11/19 21:00 11/12/19 09:12 Ranexa PO 500 mg BID [facility] Administration Tamsulosin HCl 0.4 mg 11/12/19 09:00 11/12/19 09:12 Flomax PO 0.4 mg DAILY LOLA Administration - Exam General Appearance: awake alert Eye: anicteric sclera ENT: moist mucosa Neck: supple Heart: RRR Respiratory: CTAB Gastrointestinal: soft, non-tender Extremities: no cyanosis Psychiatric: normal affect, normal behavior Hosp A/P (1) Chest pain Code(s): R07.9 - CHEST PAIN, UNSPECIFIED Status: Acute (2) COPD (chronic obstructive pulmonary disease) Status: Chronic (3) HLD (hyperlipidemia) Code(s): E78.5 - HYPERLIPIDEMIA, UNSPECIFIED Status: Chronic Qualifiers: Hyperlipidemia type: unspecified Qualified Code(s): E78.5 - Hyperlipidemia , unspecified (4) HTN (hypertension) Code(s): I10 - ESSENTIAL (PRIMARY) HYPERTENSION Status: Chronic Qualifiers: Hypertension type: essential hypertension Qualified Code(s): I10 - Essential (primary) hypertension (5) Paroxysmal A-fib Code(s): I48.0 - PAROXYSMAL ATRIAL FIBRILLATION Status: Chronic - Plan Pt wishes to proceed with conservative measures for chest pain, interested in discussing the possibility of hospice care. Does not with to go on dialysis. Continue statin. Continue apixaban and beta sania. HTN controlled.
[2019-11-12] MEDS: Cyanocobalamin (Vitamin B-12) 1,000 MCG TAB PO SCH (20:03)
[2019-11-12] MEDS: Atorvastatin Calcium 20 MG TAB PO SCH (20:03)
--- NOTE | 2019-11-12 21:28 | CON ---
DATE OF CONSULTATION: HISTORY OF PRESENT ILLNESS: Mr. Clarke is an 84-year-old gentleman who presented with chest pain, hypertension. His chest pain has resolved. We were consulted, because of his presence in the intermediate care unit. PAST MEDICAL HISTORY: 1. Remarkable for hypertension. 2. Lipid disorder. 3. Chronic obstructive pulmonary disease. 4. Atrial fibrillation. 5. History of coronary artery bypass grafting in 1992. 6. History of coronary stenting after his bypass. SOCIAL HISTORY: He is a nonsmoker and nondrinker. Reports no drug allergies. MEDICATIONS: Reviewed. FAMILY HISTORY: Negative for lung disease in early age. REVIEW OF SYSTEMS: Ten point review of systems otherwise negative. PHYSICAL EXAMINATION: GENERAL: The patient is in no distress. VITAL SIGNS: Blood pressure 131/52, heart rate 57, respiratory rate 16. HEAD AND NECK: Exam is unremarkable. LUNGS: wheezes or crackles. HEART: Regular rhythm. S1-S2 are normal. No gallops heard. I do not hear a murmur. ABDOMEN: Soft and nontender. EXTREMITIES: Without clubbing, cyanosis, or edema. Neurologic: Grossly nonfocal. LABORATORY DATA: He is anemic with a hemoglobin of 9.5 on the 12th, this has been repeated. Electrolytes are normal, BUN 53, creatinine 2.53. IMPRESSION: 1. Hypertension. 2. Chest pain. He apparently is not interested in cardiac catheterization. 3. His anemia needs to be followed and his renal function needs to be rechecked. Job ID: [id number]
[2019-11-13] MEDS: Ondansetron PF 4 MG/2 ML Vial IVP PRN ×2 (00:36→09:23)
[2019-11-13] MEDS: Morphine 4 MG/ML VIAL SLOW IVP PRN ×2 (00:36→09:23)
[2019-11-13] MEDS: Acetaminophen 325 MG TAB PO PRN (01:38)
[2019-11-13] MEDS: Mometasone 200 MCG/Formoterol 5 MCG 120 PUFF INHALER INH SCH (06:26)
[2019-11-13] MEDS: Folic Acid 1 MG TAB PO SCH (09:33)
[2019-11-13] MEDS: Allopurinol 100 MG TAB PO SCH (09:33)
[2019-11-13] MEDS: Finasteride 5 MG TAB PO SCH (09:34)
[2019-11-13] MEDS: Tamsulosin HCl 0.4 MG CAP PO SCH (09:34)
[2019-11-13] MEDS: Metoprolol Tartrate 50 MG TAB PO SCH (09:35)
[2019-11-13] MEDS: Apixaban 5 MG TAB PO SCH (09:36)
[2019-11-13] MEDS: hydrALAZINE 25 MG TAB PO SCH ×2 (09:37→16:27)
--- NOTE | 2019-11-13 10:03 | PRG ---
DATE OF SERVICE: 11/13/2019 SUBJECTIVE: Garrett Clarke has no complaints. He has been out of bed. He wants to go home. OBJECTIVE: VITAL SIGNS: He is afebrile, oximetry is 97% on room air, heart rate is 57, and blood pressure 150/66. LUNGS: Clear. HEART: Regular rhythm. ABDOMEN: Soft. LABORATORY DATA: No new lab today. IMPRESSION: 1. Chest discomfort. 2. Chronic obstructive pulmonary disease, clinically stable. 3. Lipid disorder. 4. Hypertension. 5. History of atrial fibrillation. 6. Anticoagulation. 7. Chronic kidney disease. His creatinine was 2.53 three days ago. This has not been repeated. He appears to be medically stable. We will sign off. Job ID: [id number]
[2019-11-13 15:36] VITALS: TEMP 97.6
[2019-11-13 16:28] VITALS: BP 115/54
--- NOTE | 2019-11-13 17:53 | PRG ---
DATE OF SERVICE: 11/13/2019 SUBJECTIVE: Mr. Clarke was stable overnight. No recurrent episodes of chest pain. OBJECTIVE: VITAL SIGNS: Blood pressure 110/79, pulse 80, respirations 20. LUNGS: Clear to auscultation. HEART: Regular rate and rhythm. ABDOMEN: Soft, nontender, nondistended. EXTREMITIES: No edema. IMPRESSION: 1. Recurrent angina. 2. Coronary artery disease. 3. Status post bypass surgery. 4. Chronic kidney disease. RECOMMENDATIONS: I again visited with Mr. Clarke today. He again is not interested in proceeding with a more aggressive approach. He would like to proceed with hospice for continued medical care. Otherwise, from my standpoint, I have no further recommendations. We will continue current medical therapy as prescribed. Job ID: [id number]
--- NOTE | 2019-11-13 21:31 | DIS ---
DATE OF ADMISSION: 11/11/2019 DATE OF DISCHARGE: 11/13/2019 PRIMARY CARE PROVIDER: Deandre John MD DISCHARGE DIAGNOSES: 1. Recurrent chest pain. 2. Malignant hypertension. 3. Acute on chronic renal failure, stage 3. CONDITION OF PATIENT ON THE DAY OF DISCHARGE: Stable. I assessed Mr. Clarke on the day of discharge. He reports chest pain is better. Vital signs are stable. S1 and S2 are heard, regular. Lungs are clear to auscultation bilaterally. CONSULTATIONS DURING THIS HOSPITALIZATION: Pulmonary and Critical Care Medicine, Dr. Santacruz and Cardiology, Dr. Harrington. DISCHARGE MEDICATIONS: Losartan was discontinued secondary to renal failure. He has been started on: 1. Hydralazine 25 mg 3 times a day. 2. Imdur 30 mg daily. Otherwise, no change was made to his pre-admission home medications. HOSPITAL COURSE: Mr. Clarke is a pleasant 84-year-old gentleman, who was admitted to [facility] on November 11, 2019, for recurrent chest pain. He was seen by Cardiology Service. He was offered coronary angiography. He was worried about the risk of contrast nephropathy and did not wish to proceed with coronary angiography for that reason. He did not wish to be on dialysis. Cardiology Service also discussed hospice or palliative care. Palliative Care Service was consulted. After discussion with Palliative Care team, Mr. Clarke wanted to go home for hospice care. Hospice care is being arranged and he is being discharged home. Many thanks for allowing me to participate in your patient's care. Please feel free to contact me with any questions or concerns. DISCHARGE DESTINATION: Home. DIET: Heart healthy and renal. ACTIVITY: As tolerated. TIME SPENT: Total amount of time spent coordinating this discharge: 31 minutes. Job ID: [id number]
--- NOTE | 2019-11-14 07:25 | PQF ---
CLINICAL DOCUMENTATION CLARIFICATION FORM: Dear : Artem Gamboa Date / Time: 11/14/19 4351 Please exercise your independent, professional judgment in responding to the clarification form. Clinical indicators are provided on the bottom of this form for your review In your clinical opinion based on clinical findings below, can you please identify the condition as the reason for Inpatient admission if due to: Please check appropriate box(es): [ ] MALKA [ x ] CAD with Unstable angina [ ] Hypertensive Emergency [ ] Other diagnosis [ ] Unable to determine Physician Signature: Date/Time: For continuity of documentation, please document condition throughout progress notes and discharge summary. Thank You. To be completed by CDI/Coding staff for physician review: Present Clinical Indicators - Signs / Symptoms / Labs Results and Location in Medical Record [X] BUN 53, Creatine 2.53, GFR 24, Creatine kinase 21 , Troponin 0.015, BNP 281.0 Laboratory Chemistry 11/09 [X] BP 173/66, Pulse 75, Resp 20, Temp 99.0 Vital signs 11/09 [X] Hypertensive emergency with endorgan damage of chest pain and also acute kidney injury ED notes p8 11/09 [X] Chest pain, rule out CAD, Unstable angina Consult p2 11/10 Dr Santacruz [X] Acute on chronic renal failure, stage 3 DS p1 11/12 Dr Gamboa Present Risk Factors Results and Location in Medical Record [X] 84 year-old Male Consult p1 11/10 Dr Santacruz [X] CAD Consult p1 11/10 Dr Santacruz [X] HTN Consult p1 11/10 Dr Santacruz [X] CKD Consult p1 11/10 Dr Santacruz [X] High cholesterol Consult p1 11/10 Dr Santacruz [X] Afib Consult p1 11/10 Dr Santacruz [X] COPD Consult p1 11/10 Dr Santacruz [X] HLD ED Notes 11/09 [X] Former Smoker ED Notes 11/09 Present Treatments Results and Location in Medical Record [X] IVF NS 1L JUL 05 [X] IV Nitroglycerin 25mg JUL 05 [X] Ranexa 500 mg oral JUL 05 [X] Lopressor 25 mg oral JUL 05 [X] Eliquis 2.5 mg oral JUL 05 [X] Cardiology consult Andrey Gambino 11/10 CDS/[employer] Apprentice Signature: Teresita Olvera Phone #: ext [phone] Date/Time: 11/14/19723 This is a permanent part of the Medical Record [facility]
== END 2019-11-13 17:24 | disposition hospice, home (50) | DRG 303 ==
LOC: ERS 22:41 → IMCU/EMU 11-11 01:46
PROVIDERS: ADMIT Internal Medicine; ATTEND Internal Medicine
DX: I25.110 Atherosclerotic heart disease of native coronary artery with unstable angina pectoris (principal); I16.1 Hypertensive emergency; N17.9 Acute kidney failure, unspecified; Z51.5 Encounter for palliative care; I12.9 Hypertensive chronic kidney disease with stage 1 through stage 4 chronic kidney disease, or unspecified chronic kidney disease; N18.3 Chronic kidney disease, stage 3 (moderate); E78.5 Hyperlipidemia, unspecified; J44.9 Chronic obstructive pulmonary disease, unspecified; K21.9 Gastro-esophageal reflux disease without esophagitis; M1A.9XX0 Chronic gout, unspecified, without tophus (tophi); I48.0 Paroxysmal atrial fibrillation; F41.9 Anxiety disorder, unspecified; D63.1 Anemia in chronic kidney disease; Z79.51 Long term (current) use of inhaled steroids; Z95.5 Presence of coronary angioplasty implant and graft; Z87.891 Personal history of nicotine dependence; Z79.01 Long term (current) use of anticoagulants; Z79.899 Other long term (current) drug therapy; Z88.5 Allergy status to narcotic agent
CPT/HCPCS: 36415; 71045; 80053; 82550; 83880; 84484; 85025; 85379; 93005; 93010; 94640; 94664; J2270; J2405